=== PATIENT | female | born 1965 | race Caucasian/White ===

== ENCOUNTER 2019-06-04 11:14 | Inpatient (IN) | payer SELFPAY ==
[~2019-06-04] VITALS: Ht 170.2 cm; Wt 73.5 kg
[2019-06-04] VITALS (22 sets, daily range): BP systolic 107–158; BP diastolic 67–99
[2019-06-04 12:42] LABS: BASOPHILS # (AUTO) 0.1 (0.0-0.1); BASOPHILS % 0.5 % (0.0-1.0); EOSINOPHILS # (AUTO) 0.3 (0.0-0.4); EOSINOPHILS % 2.7 % (0.0-6.0); HEMATOCRIT 36.3 % (34.2-44.1); HEMOGLOBIN 11.8 g/dL (12.0-16.0); LYMPHOCYTES # (AUTO) 1.5 (1.0-3.2); LYMPHOCYTES % 12.7 % (18.0-39.1); MEAN CORPUSCULAR HEMOGLOBIN 26.4 pg (28-32); MEAN CORPUSCULAR HGB CONC 32.5 g/dL (31-35); MEAN CORPUSCULAR VOLUME 81.2 fL (81-99); MONOCYTES # (AUTO) 0.9 (0.2-0.8); MONOCYTES % 7.4 % (4.4-11.3); NEUTROPHILS # (AUTO) 9.2 (2.1-6.9); NEUTROPHILS % 76.3 % (38.7-80.0); PLATELET COUNT 452 x10e3/uL (140-360); RED BLOOD COUNT 4.47 x10e6/uL (3.6-5.1); RED CELL DISTRIBUTION WIDTH 16.9 % (11.7-14.4)
[2019-06-04 12:51] LABS: INR 0.99; PROTHROMBIN TIME 13.6 seconds (11.9-14.5)
[2019-06-04 12:52] LABS: PARTIAL THROMBOPLASTIN TIME 28.9 seconds (23.8-35.5)
[2019-06-04 13:00] LABS: ALANINE AMINOTRANSFERASE 67 IU/L (0-55); ALBUMIN 2.5 g/dL (3.5-5.0); ALBUMIN/GLOBULIN RATIO 0.6 (0.8-2.0); ALKALINE PHOSPHATASE 256 IU/L (40-150); ANION GAP 14.6 mmol/L (8-16); BLOOD UREA NITROGEN 10 mg/dL (7-26); BUN/CREATININE RATIO 14 (6-25); CALCIUM 9.2 mg/dL (8.4-10.2); CARBON DIOXIDE 26 mmol/L (22-29); CHLORIDE 97 mmol/L (98-107); EST GLOMERULAR FILTRATION RATE > 60 ML/MIN (60-); GLUCOSE 91 mg/dL (74-118); POTASSIUM 3.6 mmol/L (3.5-5.1); SODIUM 134 mmol/L (136-145)
[2019-06-04] MEDS ORDERED: ONDANSETRON HCL INJ 2MG/ML 2ML 2 MG/ML VIAL IV STA (13:01)
[2019-06-04] MEDS ORDERED: MORPHINE SULFATE INJ 4 MG/ML INJ 1ML IV STA (13:01)
[2019-06-04] MEDS ORDERED: HEPARIN SOD (PORCINE) 5,000 UNIT/ML VIAL IV ONE ×2 (13:15→14:30)
[2019-06-04] MEDS ORDERED: HEPARIN 25,000 UNIT 1,200 UNIT in DEXTROSE 5% 250ML 250 ML IV SCH (14:30)
[2019-06-04] MEDS ORDERED: HEPARIN 25,000 UNIT DRIP IV ONE (14:55)
[2019-06-04] MEDS: MORPHINE SULFATE INJ 4 MG/ML INJ 1ML IV PRN ×3 (15:15→22:59)
--- NOTE | 2019-06-04 15:20 | NUR ---
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 Orders in [employer] and Tele tracker. Belkis RN House supv. aware for ICU bed necessity. general laborer team updated. rolo/kassie
[2019-06-04] MEDS ORDERED: MIDAZOLAM HCL 2 MG/2 ML VIAL ONE ×3 (15:23→16:42)
[2019-06-04] MEDS ORDERED: IOPAMIDOL 300MG/ML 100 ML INFUS..BTL IV ONE ×2 (15:24→16:39)
[2019-06-04] MEDS ORDERED: HEPARIN SOD/SOD CHLORIDE 2,000 ML ONE (15:24)
[2019-06-04] MEDS ORDERED: FENTANYL CITRATE/PF 100MCG/2 ML INJ ONE ×2 (15:24→15:34)
[2019-06-04] MEDS ORDERED: LIDOCAINE HCL 2% LOCAL 20 ML VIAL ONE (15:24)
[2019-06-04] MEDS ORDERED: SODIUM CHLORIDE 0.9% 1000ML 1,000 ML ONE (15:24)
[2019-06-04] MEDS ORDERED: ALTEPLASE RECOMBINANT 8 MG in DEXTROSE 5% 250ML 250 ML IV PRN (15:30)
[2019-06-04] MEDS ORDERED: HEPARIN 25,000U/0.45% NS 250ML 0 ML IV ONE (15:34)
[2019-06-04] MEDS ORDERED: CLOPIDOGREL BISULFATE 75 MG TAB ONE (17:01)
[2019-06-04] MEDS ORDERED: ASPIRIN 325 MG TAB ONE (17:01)
--- NOTE | 2019-06-04 17:30 | NUR ---
Report provided to Jolene SNELL, review of procedural findings and medications given. Patient drowsy, easily aroused. maintains airway and room air saturations of 98-99%. No gross issues of pressure, pain, pallor or dysrhythmia. IV site patent with NS 0.9% at KVO by dial-flow to left forearm. patient hemodynamically stable with hemostasis right groin dressing CDI w/o s/s of bleeding. patient transferred to [facility] assist w/o incident. transported to ICU 193. tPA was prepared under MD order and decision made not to use by MD - cgf procedure: left popliteal thrombectomy and PTCA w/ DCB Sheath puller: Refugio RTR mynx to right fem Meds Given Intra-Procedure Sedatives Versed - 3 mg Fentanyl - 75 mcg Anticoagulants Heparin - 9000 Units Fluids Input -750 Output -dtv Contrast Isovue 300 -225ml Other Meds Plavix 600 mg Aspirin 325mg
--- NOTE | 2019-06-04 18:00 | NUR ---
Received patient from specialist employee labor relations at 1730. Patient arrived with warm and palpable pulses on L foot. R groin cath site is CDI. Patient does not appear to be in any distress at this time. Dr. Norm Bateman called to clarify orders for heprain drip on the OCT as optical laboratory mechanic told RN patient did not need heprain drip post cath. also called bc patient is complaining of L foot pain and morphine is not due for 1.5 more hours. Page went unanswered.
[2019-06-04] MEDS: RIVAROXABAN 20 MG TABLET PO SCH (21:25)
[2019-06-05] VITALS (45 sets, daily range): BP systolic 97–141; BP diastolic 54–84
--- NOTE | 2019-06-05 01:35 | Operative Report ---
DATE OF PROCEDURE: 06/04/2019 SURGEON: Hilario Bateman MD INDICATION FOR PROCEDURE: Acute limb ischemia. PREPROCEDURE ASSESSMENT: The risks, benefits, and alternatives of the treatment were explained to the patient prior to the procedure. The patient was deemed to be an appropriate candidate for moderate sedation. Informed consent was obtained and documented in the medical record. MEDICATIONS: Please see nursing notes for medications administered during the procedure. PROCEDURES PERFORMED: 1. Abdominal aortography. 2. Bilateral lower extremity angiogram. 3. Catheter placement third order. 4. Primary arterial thrombectomy with a mechanical device. 5. ADMINISTRATIVE SUPPORT CLERK of the left popliteal artery with 6.0 x 80 mm drug-coated balloon. 6. Femoral angiography. 7. Vascular closure device. 8. Moderate sedation 90 minute supervised by . PROCEDURE IN DETAILS: The patient was brought to the cardiac catheterization laboratory in a fasting state. Right groin was prepped and draped in a sterile fashion. Access to the right common femoral artery was obtained using micropuncture needle. Six-Mauritian short sheath was inserted into the right common femoral artery without any difficulty. Omni Flush catheter was advanced into the abdominal aorta and abdominal aortography was performed. [place] Advantage wire was used through the Omni Flush catheter and advanced into the left common iliac artery and subsequently into the left superficial femoral artery under fluoroscopic guidance. The Omni Flush catheter was advanced into the left common femoral artery and segmental peripheral angiography of the left lower extremity was performed using digital subtraction imaging. This revealed acute thrombosis of the left popliteal artery with very poor INEZ-1 flow distal to the thrombus with only one vessel runoff to the foot. We decided to proceed with the intervention. IV bolus and heparin were given with subsequent boluses as needed to achieve ACT near 300. Short 6-Mauritian sheath was exchanged for a long 45 cm destination sheath 6-Mauritian over the [place] Advantage wire. The lesion was crossed using a Whisper wire, which was positioned into the anterior tibial artery all the way into the dorsalis pedis artery. Primary mechanical thrombectomy was performed with three separate passes of Angiojet catheter with total aspiration of 160 mL of blood and thrombus. This resulted in significant improvement to distal flow. However, there is residual 80% stenosis noted at the left popliteal artery. Intra-arterial nitroglycerin was given to ensure that there was no spasm involved and since persistent lesion was noted, we decided to proceed with balloon angioplasty with 6.0 x 80 mm drug-coated balloon at four atmospheres for 3 minutes. This resulted in excellent angiographic result with no residual thrombus dissection or spasm. Wire and balloon were removed. Final angiogram of the left lower extremity showed excellent three-vessel runoff to the left foot with INEZ-3 flow. The destination sheath was then exchanged for a short 6-Mauritian sheath over [place] Advantage wire and angiography of the right lower extremity with runoff was performed, which demonstrated no significant stenosis or thrombosis with three-vessel runoff of the tibia. Access site was then closed with a Mynx vascular closure device. This resulted in excellent hemostasis. The patient tolerated the procedure well. There were no immediate complications. Antiplatelet therapy was administered using 600 mg of Plavix loading dose as well as aspirin. The patient was transferred to the ICU for overnight observation and care. FINDINGS: Acute thrombosis of left popliteal artery and 80% underlying lesion of the left popliteal artery, successful mechanical thrombectomy, and ADMINISTRATIVE SUPPORT CLERK of the above lesion with excellent hinduism of flow. ESTIMATED BLOOD LOSS: 170 mL. GRAFTS AND IMPLANTS: None. SPECIMEN REMOVED: None. COMPLICATIONS: None. FINAL RECOMMENDATIONS: 1. Continue Plavix 75 mg daily and Xarelto 20 mg at bedtime. 2. Continue optimal medical therapy and risk factor control including smoking cessation. 3. Follow up in clinic 2 weeks post discharge to determine the etiology of acute left popliteal thrombosis. MD LISA Cordoba/SAMIRA /[id number]
[2019-06-05] MEDS: MORPHINE SULFATE INJ 4 MG/ML INJ 1ML IV PRN ×5 (04:30→21:35)
[2019-06-05 05:22] LABS: BASOPHILS % 0.4 % (0.0-1.0); EOSINOPHILS # (AUTO) 0.5 (0.0-0.4); EOSINOPHILS % 4.3 % (0.0-6.0); HEMATOCRIT 30.6 % (34.2-44.1); HEMOGLOBIN 9.5 g/dL (12.0-16.0); LYMPHOCYTES # (AUTO) 1.8 (1.0-3.2); LYMPHOCYTES % 16.5 % (18.0-39.1); MEAN CORPUSCULAR HEMOGLOBIN 25.7 pg (28-32); MEAN CORPUSCULAR VOLUME 82.9 fL (81-99); MONOCYTES # (AUTO) 0.8 (0.2-0.8); MONOCYTES % 7.7 % (4.4-11.3); NEUTROPHILS # (AUTO) 7.6 (2.1-6.9); NEUTROPHILS % 70.6 % (38.7-80.0); PLATELET COUNT 384 x10e3/uL (140-360); RED BLOOD COUNT 3.69 x10e6/uL (3.6-5.1); RED CELL DISTRIBUTION WIDTH 17.1 % (11.7-14.4)
[2019-06-05 05:35] LABS: INR 2.08; PROTHROMBIN TIME 24.1 seconds (11.9-14.5)
[2019-06-05 05:36] LABS: PARTIAL THROMBOPLASTIN TIME 45.6 seconds (23.8-35.5)
[2019-06-05 05:53] LABS: ANION GAP 13.2 mmol/L (8-16); BLOOD UREA NITROGEN 10 mg/dL (7-26); BUN/CREATININE RATIO 17 (6-25); CALCIUM 8.8 mg/dL (8.4-10.2); CARBON DIOXIDE 24 mmol/L (22-29); CHLORIDE 101 mmol/L (98-107); CREATININE, SERUM 0.59 mg/dL (0.57-1.11); EST GLOMERULAR FILTRATION RATE > 60 ML/MIN (60-); GLUCOSE 85 mg/dL (74-118); POTASSIUM 4.2 mmol/L (3.5-5.1); SODIUM 134 mmol/L (136-145)
[2019-06-05] MEDS: ONDANSETRON HCL INJ 2MG/ML 2ML 2 MG/ML VIAL IV PRN ×4 (07:59→21:35)
[2019-06-05] MEDS: CLOPIDOGREL BISULFATE 75 MG TAB PO SCH (08:50)
--- NOTE | 2019-06-05 12:41 | History and Physical ---
CHIEF COMPLAINT: Left leg acute ischemia with arterial clot. 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 The patient has workup done immediately and found to have significant left popliteal arterial stenosis. The patient underwent angiogram. The patient underwent abdominal aortography with bilateral lower extremity angiogram, primary arterial thrombectomy with a mechanical device and a MOVIE ACTOR of the left popliteal artery with 6.0 x 80 mm drug-coated balloon, femoral angiography, vascular closure device, and moderate sedation at the time. The patient is stable. She had a respond pulses to the left lower extremity. Currently, the patient is still with some bluish discoloration of her toe. The left foot shown that she has some bluish of the 5th toe and also to the 2nd toe and the 3rd toe as well. There is ptosis noticed on palpation and monitoring by registered nurse at bedside. The patient is currently on Xarelto and Plavix. PAST MEDICAL HISTORY: Smoker, but no previous vascular compromise. She smoked for over 30 years, half to one-pack per day. No significant recreational drug use or alcohol. FAMILY HISTORY: Extensively with dyslipidemia, coronary artery disease, hypertension, and diabetes. PHYSICAL EXAMINATION: VITAL SIGNS: Temperature is 98, blood pressure 110/74, pulse rate 73, and respirations 18. GENERAL: The patient is not in acute distress. She is awake. HEENT: Normocephalic and atraumatic. Pupils reactive. Anicteric. NECK: Supple grossly. PULMONARY: Clear. CARDIOVASCULAR: Regular rate and rhythm. ABDOMEN: Soft and unremarkable. EXTREMITIES: There are pulses of the left lower extremity. The right lower extremity and right foot completely normal. Left foot as mentioned above. There is bluish discoloration worse on the 5th toe and the 2nd toe. There is some bluish coloration of the 3rd toe and 4th toe as well. There were pulses. NEUROLOGIC: No focal deficit. LABORATORY DATA: Sodium is 134, potassium 4.2, chloride 101, bicarb 24, BUN 10, creatinine 0.6, and glucose 85. WBC is 11, hemoglobin 9.5, hematocrit 30.6, and platelets is 384. IMPRESSION: Acute arterial thrombus emboli, etiology unclear. The patient is status post angiogram with intervention. Please review my note above and operative note by Dr. Hilario Bateman. PLAN: Continue with recommendation Xarelto and Plavix. We will consult Dr. Lior Beyer for treatment. Continue with monitoring of the left foot. Continue with current management. Pain control. No smoking. Nicotine patch if needed. MD LILIANA Culver/SAMIRA /[id number]
--- NOTE | 2019-06-05 16:40 | NUR ---
KRISTY GAVE SELF PAY PACKET FOR PT TO FOLLOW UP IN [facility].
--- NOTE | 2019-06-05 16:51 | NUR ---
Dr. Laboy rounded on patient and ordered consult for Dr. Beyer. RN called Dr. Beyer's office to inform them of new consult. Dr. Norm Bateman notified of patients pain to left toes and foot. updated on continued mottled discoloration to bottom of second and third toe as well as the fifth toe. Pulse to L foot are strong and palpable. MD ordered narco prn and an arterial US of the L leg. Will continue to monitor. Addendum: 06/05/19 at 1900 by Jolene Armstrong RN L foot pulses checked Q2. Pules strong every two hours, mottled discolration noted to L pinkie toe and 2nd and third toe at the bottom of foot. Dr. Norm Bateman aware.
[2019-06-05] MEDS: HYDROCODONE/APAP 5MG-325MG TAB PO PRN (18:36)
[2019-06-05] MEDS: RIVAROXABAN 20 MG TABLET PO SCH (20:45)
[2019-06-06] VITALS (15 sets, daily range): BP systolic 99–127; BP diastolic 64–78
--- NOTE | 2019-06-06 01:40 | Consultation ---
DATE OF CONSULTATION: 06/05/2019 Cardiology Consult Note REASON FOR CONSULT: Left toe gangrene. CHIEF COMPLAINT: Left foot pain. HISTORY OF PRESENT ILLNESS: The patient is a 53-year-old female with history of smoking, hypertension, hyperlipidemia, who presented to the ER after several hours of pain in her 4th and 5th toes and discoloration. In the ER, was found to have abnormal arterial Dopplers with possible thrombus in the left popliteal artery and was taken urgently to the cardiac catheterization laboratory yesterday and was noted to have a large thrombus with acute occlusion of the left popliteal artery, underwent thrombectomy and CIRCUIT BREAKER ASSEMBLER of the left popliteal with excellent result and holiness of good flow. Today, she feels better. However, her toes are still very painful and still remain discolored. She also reports some pain in the back of her calf without any swelling. No chest pain. No history of palpitation. No syncope. No history of heart failure symptoms. REVIEW OF SYSTEMS: As per HPI, otherwise negative. PAST MEDICAL HISTORY: 1. Hypertension. 2. Hyperlipidemia. SOCIAL HISTORY: The patient is a long-time smoker. Does not drink or abuse drugs. 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 FAMILY HISTORY: Noncontributory. OUTPATIENT MEDICATIONS: Reviewed. ALLERGIES: NO KNOWN DRUG ALLERGIES. OBJECTIVE: VITAL SIGNS: Temperature afebrile, pulse 87, respiratory rate 17, blood pressure 113/74, saturating 95% on room air. GENERAL: Middle-aged female, in no acute distress. CARDIOVASCULAR: Regular rate and rhythm. No murmurs, rubs, or gallops. LUNGS: Clear to auscultation bilaterally. ABDOMEN: Soft, nontender, not distended. NEURO AND PSYCH: Alert and oriented to person, place, and time. Normal affect. EXTREMITIES: 2+ pulses to the left dorsalis pedis artery. The left 4th and 5th toes are dark red and discolored, tender to palpation with good capillary refill. INPATIENT MEDICATIONS: Reviewed. LABORATORY DATA: Reviewed. TELEMETRY DATA: Reviewed. Shows normal sinus rhythm. ASSESSMENT AND PLAN: 1. Acute arterial thrombosis, left popliteal artery, status post thrombectomy and tPA. 2. Left lower extremity toe gangrene. 3. Hypertension. 4. Hyperlipidemia. PLAN: She has been revascularized. We will continue to monitor. Only time will tell whether her toe is recover or ischemic tissue will need to be debrided in the future. Continue to monitor. Pain control by primary team. Repeat Doppler did not show any residual thrombus with excellent three-vessel flow into the left foot. Ongoing hypercoagulable workup per primary team. We will get an echocardiogram to assess for any possible source of intracardiac thrombus. We will need outpatient monitoring EKG to rule out atrial fibrillation as a source of her arterial occlusion in the absence of other causes. Thank you for this consult. We will continue to follow. MD LISA Cordoba/MODL /[id number]
[2019-06-06] MEDS: HYDROCODONE/APAP 5MG-325MG TAB PO PRN ×3 (01:55→14:01)
[2019-06-06] MEDS: MORPHINE SULFATE INJ 4 MG/ML INJ 1ML IV PRN ×4 (05:35→21:00)
[2019-06-06] MEDS: CLOPIDOGREL BISULFATE 75 MG TAB PO SCH (08:12)
[2019-06-06] MEDS: ONDANSETRON HCL INJ 2MG/ML 2ML 2 MG/ML VIAL IV PRN ×3 (09:40→21:00)
--- NOTE | 2019-06-06 18:04 | NUR ---
Bounding pulses on L foot, purple discoloration to L side of foot and pinkie toe. Patient ambulated in hallway's twice using walker with RN. Dr. Laboy gave orders to transfer to floor. Will continue to monitor pt.
--- NOTE | 2019-06-06 19:35 | NUR ---
Received patient from day nurse, patient is stable, patient denies any pain at this time, safety and fall precautions maintained : bed in lowest position and locked, needed items beside bed and call rene placed close to patient, patient has yellow socks, patient is currently stable, will continue to monitor.
[2019-06-06] MEDS: RIVAROXABAN 20 MG TABLET PO SCH (20:17)
--- NOTE | 2019-06-06 20:43 | Progress Note ---
DATE: 06/06/2019 Cardiology Progress Note SUBJECTIVE: No major events overnight. Some left 5th toe pain. OBJECTIVE: VITAL SIGNS: Temperature afebrile, pulse 78, respiratory rate 16, blood pressure 112/72, and saturating 95% on room air. GENERAL: Middle-aged female, in no acute distress. CARDIOVASCULAR: Regular rate and rhythm. No murmurs, rubs, or gallops. LUNGS: Clear to auscultation bilaterally. ABDOMEN: Soft, nontender, and nondistended. NEURO AND PSYCH: Alert and oriented to person, place, and time. Normal affect. EXTREMITIES: 2+ pulses, bilateral lower extremities, warm, well perfused. Left 5th toe and surrounding tissue appears purple and mottled still despite evangelical of blood flow, may be permanent gangrene setting in. INPATIENT MEDICATIONS: Reviewed. LABORATORY DATA: Reviewed. IMAGING DATA: Reviewed. ASSESSMENT AND PLAN: 1. Acute arterial thrombosis of the popliteal artery, status post thrombectomy and tPA. 2. Left lower extremity toe gangrene. 3. Hypertension. 4. Hyperlipidemia. PLAN: Continue Plavix and Xarelto. Hypercoagulable workup is ongoing for Hematology. We will need to switch to Coumadin if the patient is found to be positive for antiphospholipid antibody. The patient is okay to be discharged from Cardiology standpoint. She will need followup with Podiatry to monitor her toes in the left foot for gangrene. MD LISA Cordoba/SAMIRA /[id number]
[2019-06-07] VITALS (8 sets, daily range): BP systolic 106–125; BP diastolic 63–78
--- NOTE | 2019-06-07 | NUR ---
patient is stable.
[2019-06-07] MEDS: MORPHINE SULFATE INJ 4 MG/ML INJ 1ML IV PRN ×3 (05:32→19:47)
[2019-06-07] MEDS: ONDANSETRON HCL INJ 2MG/ML 2ML 2 MG/ML VIAL IV PRN ×2 (05:32→19:53)
--- NOTE | 2019-06-07 07:16 | NUR ---
PATIENT ENDORSED TO NEXT SHIFT FOR CONTINUITY OF CARE.
[2019-06-07] MEDS: HYDROCODONE/APAP 5MG-325MG TAB PO PRN ×4 (08:17→22:51)
[2019-06-07] MEDS: CLOPIDOGREL BISULFATE 75 MG TAB PO SCH (08:17)
--- NOTE | 2019-06-07 12:41 | Consultation ---
DATE OF CONSULTATION: 06/05/[address] Laboy. 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 The patient presented to the ER with pain in the left 4th and 5th toes and discoloration. The patient subsequently had an arterial Doppler, which showed possible thrombus in the left popliteal artery. Subsequently, the patient had consultation with Dr. Hilario Bateman, a supervisor paint roller covers. The patient had catheterization. There was a large thrombus with acute occlusion of left popliteal artery. The patient underwent thrombectomy and COMMISSARY HELPER of left popliteal with excellent result in spiritism of good flow as per the notes of Dr. Hilario Bateman. Subsequently, the patient was started on Xarelto and Plavix, subsequently referred to me. HISTORY OF PAST ILLNESSES: History of hypertension and history of hyperlipidemia. 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 FAMILY HISTORY: Noncontributory. ALLERGIES: REPORTED NONE. MEDICATIONS: At this time: 1. Xarelto 20 mg a day. 2. Ondansetron. 3. Morphine. 4. Hydrocodone. 5. Plavix. 6. Alteplase p.r.n. REVIEW OF SYSTEMS: HEENT: Normal. CARDIAC: History of hypertension and hyperlipidemia. RESPIRATORY: Normal. GI: Normal. : Normal. MUSCULOSKELETAL: Left popliteal artery thrombosis spontaneous. NEUROENDOCRINE: Essentially normal. PHYSICAL EXAMINATION: GENERAL: A rather thin built female, distressed with some pain. NECK: No palpable adenopathy. HEART: Within normal limits. LUNGS: Clear. BREASTS: Deferred at request. ABDOMEN: Obese. RECTAL: Deferred. VAGINAL: Deferred. CENTRAL NERVOUS SYSTEM: Essentially normal. EXTREMITIES: Reveals the patient to have left 2nd, 3rd, 4th, and 5th toe bluish in discoloration. I could not feel the posterior tibial, however, the dorsalis pedis is bounding. LABORATORY DATA: Lab investigations of interest show a hemoglobin of 9.5, hematocrit 30.6 with normal indices except for a slightly low MCHC of 31, RDW slightly high 17.1, white count of 10,700, and platelets of 384,000. The platelets on 06/04 were high at 452. Coagulation profile; the INR on 06/05, 2.08 and PTT 45.6. Chemistry; sodium of 134, potassium 3.6, chloride is 97, CO2 26, BUN 10, creatinine 0.7, glucose 91, and calcium 9.2. SGOT high at 79, SGPT high at 57, alkaline phosphatase high at 256, total protein 6.8, albumin 2.5, and globulin is 4.3. IMAGING DATA: Imaging consists of the abdominal arteriogram described by Dr. Hilario Bateman. IMPRESSION: 1. Left popliteal arterial thrombosis. 2. Arterial thrombectomy. 3. Bluish left 2nd, 3rd, 4th, and 5th toes. 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 5. Anemia of chronic disease (9.5). 6. Thrombocythemia (452). 7. History of excessive smoking. 8. High LFT. PLAN, COMMENTS, AND SUGGESTIONS: The patient is already on Xarelto and Plavix. I suggested the patient to have thrombophilia profile. I will follow with Cardiology, suggested to stop smoking. Ultrasound of abdomen, as LFTs are high. Hepatitis profile If the patient tends to show by thrombophilia profile that she has either anticardiolipin antibodies and/or lupus anticoagulant, suggested the patient to be switched over to Coumadin for lifetime. The patient should be referred to [facility], as she does not have any insurance and she will have to be followed lifetime by elastic attacher chainstitch. Thank you very much for allowing me to participate in the management of this patient. I will confine myself to Hematology. However, my role is very limited at this time, as the patient predominantly is being taken care of and put on anticoagulants by the supervisor paint roller covers. Lior Beyer MD MAQ/MODL /[id number] cc: MD Hilario Culver MD
--- NOTE | 2019-06-07 12:51 | Progress Note ---
DATE: 06/07/2019 Cardiology Progress Note SUBJECTIVE: The patient denies chest pain or shortness of breath. Her main complaint is of pain in her toes. OBJECTIVE: VITAL SIGNS: Temperature 98.2 degrees, pulse 84, respiratory rate 16, blood pressure 109/78, and oxygen saturation 98% on room air. GENERAL: Awake, alert, in no acute distress. LUNGS: Clear to auscultation bilaterally. No wheezes or crackles. CARDIOVASCULAR: Normal rate, regular rhythm. No murmur. Normal S1 and S2. ABDOMEN: Soft and nontender. EXTREMITIES: No edema. Left fifth toe with dusky discoloration as well as the tip of the left second digit. CARDIAC MEDICATIONS: 1. Plavix 75 mg p.o. daily. 2. p.o. at bedtime. LABORATORY DATA: None today. IMPRESSION: 1. Acute arterial thrombosis of the popliteal artery, status post thrombectomy and tPA. 2. Left lower extremity toe gangrene. 3. Hypertension. 4. Hyperlipidemia. RECOMMENDATIONS: Continue Plavix and Xarelto. Hypercoagulable workup per Hematology. If she is found to be positive for antiphospholipid antibody, recommend switch to Coumadin. Otherwise, she may be discharged from a cardiac standpoint. She will need followup with Podiatry to monitor the left toe gangrene. Thank you for this consult. We will continue to follow. Alecia Mcbride MD ABS/SAMIRA /[id number]
[2019-06-07] MEDS ORDERED: BISACODYL 10 MG SUPP PR PRN (15:15)
[2019-06-07] MEDS ORDERED: MAGNESIUM HYDROXIDE 30 ML UDC PO PRN (15:15)
--- NOTE | 2019-06-07 16:21 | Diagnostic Imaging Report ---
EXAM: Right upper quadrant abdominal ultrasound INDICATION: Elevated liver enzymes. COMPARISON: None. TECHNIQUE: Transverse and longitudinal images of the right upper quadrant abdomen were obtained FINDINGS: Liver: Size: 20.5 cm in the right midclavicular line, enlarged Appearance: Increased echogenicity, nodular contour Mass: Multiple masses in the right and left liver of varying echogenicity. The most prominent masses measure 2.9 x 2.5 x 2.8 cm and 2.3 x 2.2 x 2.7 cm and the left liver and 3.6 x 2.2 x 3.1 cm in the right liver. Gallbladder: Small amount of sludge in the gallbladder. No gallbladder distension, pericholecystic fluid, wall thickening, stone, or reported sonographic Lester's sign. Gallbladder wall measures 1 mm. Bile Ducts: Intrahepatic Ducts: No dilatation Extrahepatic Ducts: Common bile duct measures 5 mm Pancreas: Visualized portions of the pancreatic head, neck and proximal body are normal. Kidney: The right kidney measures 12.2 cm without evidence of hydronephrosis or stone. Vessels: Aorta: Visualized portions are normal Inferior Vena Cava: Visualized portions are normal Main Portal Vein: 0.8 cm, normal size with hepatopetal flow. Free Fluid: No ascites or pleural effusion IMPRESSION: Hepatomegaly, hepatic steatosis, and cirrhotic liver surface contour with numerous masses in the right and left liver of varying echogenicity measuring up to 2.9 x 2 0.5 to 2.8 cm on the left and 3.6 x 2.2 x 3.17 m on the right. In the setting of cirrhosis, these are concerning for multifocal hepatocellular carcinoma or less likely metastases. Small amount of sludge in the gallbladder. No central or evidence of cholelithiasis or cholecystitis. RECOMMENDATIONS: Further evaluation with liver mass protocol CT or MRI. Signed by: Julio Esquivel MD on 06/07/2019 4:17 PM
[2019-06-07] MEDS: DOCUSATE SODIUM 100 MG CAP PO SCH (16:35)
[2019-06-07] MEDS: RIVAROXABAN 20 MG TABLET PO SCH (21:03)
--- NOTE | 2019-06-07 22:36 | NUR ---
Report given to Karen SNELL. Plan of care discussed, pt transferred via wheelchair w/ all belongings. No complaints at this time.
[2019-06-08] VITALS: BP 116/68
[2019-06-08 04:00] VITALS: BP 115/71
--- NOTE | 2019-06-08 07:00 | NUR ---
RECEIVED PATIENT RESTING IN BED NO S/S OF DISTRESS. BED LOW, WHEELS LOCKED, SIDE RAILS X2. CALL LIGHT IN REACH WILL CONTINUE TO MONITOR PATIENT.
[2019-06-08] MEDS: CLOPIDOGREL BISULFATE 75 MG TAB PO SCH (07:57)
[2019-06-08] MEDS: DOCUSATE SODIUM 100 MG CAP PO SCH (07:57)
[2019-06-08 08:19] VITALS: BP 130/73
[2019-06-08 08:59] VITALS: BP 130/73
[2019-06-08] MEDS ORDERED: CLOPIDOGREL75 MG PO (09:29)
[2019-06-08] MEDS ORDERED: DOCUSATE SODIU100 MG PO (09:33)
[2019-06-08] MEDS ORDERED: TYLENOL WITH C1 EACH PO (09:33)
[2019-06-08] MEDS ORDERED: PLAVIX75 MG PO (09:33)
[2019-06-08] MEDS ORDERED: ELIQUIS PO (09:34)
--- NOTE | 2019-06-08 09:45 | NUR ---
REMOVED PATIENTS IV. CATHETER TIP INTACT AND PRESSURE DRESSING APPLIED.
--- NOTE | 2019-06-08 09:50 | NUR ---
PATIENT DISCHARGED FROM FACILITY PATIENT GATHERED ALL PERSONAL BELONGINGS, DISCHARGE INSTRUCTION, AND FOLLOW UP INFORMATION. LEFT UNIT IN WHEELCHAIR AND WENT HOME VIA PRIVATE AUTO. NO SIGNS OF DISTRESS WHEN LEAVING FACILITY.
--- NOTE | 2019-06-09 00:28 | Consultation ---
DATE OF CONSULTATION: 06/08/2019 ADDENDUM: Mellisa Sullivan is a 53-year-old white female, who was seen by me for arterial emboli of the left lower extremity. Because of the high liver functions, SGOT being 79, SGPT 67, and alkaline phosphatase being 256 with a low albumin of 2.5. I had done an ultrasound of the liver and this was reported to have hepatomegaly, hepatic steatosis, cirrhotic liver with multiple lesions, 2.9 x 2.05 to 3.6 x 2.2 x 3.17. There was also small amount of sludge in the gallbladder. The patient, however, has been discharged. This finding is extremely important. I have tried to call her at [phone], the phone number listed on her admission sheet. She needs to have markers as CEA, alpha-fetoprotein. Since a smoker, she also needs to have a CT of the chest. I will write her a letter, so that she would have this done as soon as possible since she could have an underlying malignancy as the cause of the thromboembolic phenomenon that she had. Thank you very much for allowing me to participate in management of this patient. Lior Beyer MD MAQ/MODL /[id number] cc: MD Hilario Culver MD
--- NOTE | 2019-06-09 01:23 | Progress Note ---
DATE: 06/08/2019 Cardiology Progress Note SUBJECTIVE: The patient denies chest pain or shortness of breath. She reports her toes are improving. OBJECTIVE: VITAL SIGNS: Temperature 96.8 degrees, pulse 72, respiratory rate 16, blood pressure 130/73, and oxygen saturation 96% on room air. GENERAL: Awake, alert, in no acute distress. LUNGS: Clear to auscultation bilaterally. No wheezes or crackles. CARDIOVASCULAR: Normal rate. Regular rhythm. No murmur. Normal S1, S2. ABDOMEN: Soft, nontender. EXTREMITIES: No edema. Left 5th toe discoloration as well as the tip of the left 2nd and 3rd digits, slightly improved from yesterday. CARDIAC MEDICATIONS: Plavix 75 mg p.o. daily, Xarelto 20 mg p.o. at bedtime. IMPRESSION: 1. Acute arterial thrombosis of the popliteal artery, status post thrombectomy and tPA. 2. Left great toe gangrene. 3. Hypertension. 4. Hyperlipidemia. RECOMMENDATIONS: Continue Plavix and Xarelto. Hypercoagulable workup per Hematology. If she is found to be positive for antiphospholipid antibody, recommend switch to Coumadin. Otherwise, she may be discharged from a cardiac standpoint. She will need to follow up with Podiatry to monitor the left toe gangrene. Thank you for this consult. We will continue to follow. Alecia Mcbride MD ABS/MODL /[id number]
--- NOTE | 2019-06-09 06:59 | Discharge Summary ---
CONSULTANTS: 1. Dr. Hilario Bateman. 2. Dr. Lior Beyer. FINAL DIAGNOSES: 1. Acute left foot ischemia of the 2nd and 5th toe secondary to arterial thrombus. 2. Status post arteriogram with intervention on June 04, [address] Hilario Bateman. Abdominal aortography, bilateral lower extremity angiogram, primary arterial thrombectomy with a mechanical device, FISH DRIER of the left popliteal artery with 6.0 x 80 mm drug-coated balloon. SUMMARY: The patient is a heavy smoker, came in with acute left foot ischemia. The patient underwent angiography immediately. The patient was placed on heparin drip. The patient has intervention as mentioned above. So far, the patient is doing much better. The ischemia has improved. There is some discoloration of the left 5th toe and 2nd toe area. The pain has significantly subsided. The patient is recommended to continue with anticoagulant therapy and because of the patient's insurance is pending, the patient will take Eliquis 5 mg twice a day. A discount card is for a 30-day supply. The patient will continue with Plavix as well. The patient is advised to stop smoking immediately. The patient also has other workup done including as slight elevation of liver enzymes. Her homocystine level is pending. Serologies shows the hepatitis panel is also pending as well. The patient's immunologic workup is also pending. The patient will have a lot of followup. She discussed with the patient at length. The patient expressed understanding that she needs to follow up immediately for continue to monitor her anticoagulant therapy in her left foot. 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 The patient may return to the emergency room immediately if worsening condition. The patient will be discharged home today with Plavix 75 mg daily, Tylenol No.3 p.r.n., and Eliquis 5 mg twice a day. IMAGING TESTS: Liver enzyme, hepatomegaly, hepatic steatosis and cirrhotic liver with numerous masses in the right and left liver, a varying echogenicity measuring up to 2.9 x 2.5 x 2.8 cm on the left and 3.6 x 2.2 x 3.77 on the right in the setting of liver cirrhosis. The patient is in the setting of liver cirrhosis. The ultrasound is concerning for multifocal hepatocellular carcinoma or less likely metastasis. A small amount of sludge in the gallbladder as well. There is no central evidence of cholelithiasis or cholecystitis. Recommendation for the patient to follow up with liver mass protocol CT or MRI. At this time, the patient is on anticoagulant therapy, will be very high risk for any subsequent workup including biopsy. The patient will need to have this done as an outpatient once the coagulation and the foot is much improved. I discussed with the patient at length. Her INR is 2.08, PTT is 45.6, and PTT is 24.1. I am printing out the liver ultrasound for the patient to take with her and the patient need to follow up closely for any management. Again discussed with the patient at length the importance of followup. She will need all this workup as an outpatient with her condition. She will continue to monitor her left foot closely. Continue with Eliquis and Plavix. Discussed with the patient at length on close followup as instructed. MD LILIANA Culver/SAMIRA /[id number]
== END 2019-06-08 09:50 | disposition home or self-care (01) | DRG 271 ==
LOC: ER 11:14 → ERHOLD 13:47 → ICU 17:44 → MED/SURG 06-07 22:33
PROVIDERS: ADMIT Internal Medicine; ATTEND Internal Medicine
PROC: 04CN3ZZ Extirpation of Matter from Left Popliteal Artery, Percutaneous Approach (ICD-10-PCS; principal; 2019-06-04)
PROC: 047N3Z1 Dilation of Left Popliteal Artery using Drug-Coated Balloon, Percutaneous Approach (ICD-10-PCS; 2019-06-04)
PROC: B41D1ZZ Fluoroscopy of Aorta and Bilateral Lower Extremity Arteries using Low Osmolar Contrast (ICD-10-PCS; 2019-06-04)
DX: I74.3 Embolism and thrombosis of arteries of the lower extremities (principal); I96 Gangrene, not elsewhere classified; F17.210 Nicotine dependence, cigarettes, uncomplicated; R16.0 Hepatomegaly, not elsewhere classified; K76.0 Fatty (change of) liver, not elsewhere classified; K74.60 Unspecified cirrhosis of liver; K82.9 Disease of gallbladder, unspecified; D63.8 Anemia in other chronic diseases classified elsewhere; D69.6 Thrombocytopenia, unspecified
CPT/HCPCS: 36247; 36415; 37224; 75625; 75710; 76705; 80048; 80053; 81241; 81400; 85025; 85303; 85306; 85610; 85730; 86039; 86431; 93306; 93926; 99284; C1757; C1769; C1887; J1644; J2001; J2250; J2270; J2405; J2997; J3010; J7030; Q9967

== ENCOUNTER 2019-07-01 07:59 | Inpatient (IN) | payer SELFPAY ==
[~2019-07-01] VITALS: Ht 170.2 cm; Wt 80.5 kg
[2019-07-01] VITALS (9 sets, daily range): BP systolic 135–164; BP diastolic 67–109
[~2019-07-01 07:59] MED LIST: CLOPIDOGREL75 MG PO; COUMADIN3 MG PO; DOCUSATE SODIU100 MG PO; ELIQUIS PO; PLAVIX75 MG PO; TYLENOL WITH C1 EACH PO
[2019-07-01] MEDS ORDERED: ONDANSETRON HCL INJ 2MG/ML 2ML 2 MG/ML VIAL IV STA (08:28)
[2019-07-01] MEDS ORDERED: SODIUM CHLORIDE 0.9% 1000ML 1,000 ML IV STA (08:28)
[2019-07-01] MEDS ORDERED: MORPHINE SULFATE INJ 4 MG/ML INJ 1ML IV STA (08:40)
[2019-07-01] MEDS ORDERED: HEPARIN 25,000 UNIT 1,500 UNIT in DEXTROSE 5% 250ML 250 ML IV SCH (09:00)
--- NOTE | 2019-07-01 09:20 | NUR ---
H&P cc: left foot pain/color changes HPI: 53yoF, no PCP, onc , found to have left popliteal artery occlusive disease and ischemic foot, had thrombectomy and started on coumadin and plavix, pt also had metastatic liver disease presumed primary lung cancer with hx of 40pk years cigs, now representing with acute left foot pain and color changes. Last inr 3.17 on Friday. PMH: Ischemic left foot s/p thrombectomy, PAD, metastatic liver disease, Presumed primary lung cancer, Nicotine dependence in remission, HTN, Liver cirrhosis, AOCD PShx: thrombectomy, left foot tib/fib fx s/p repair s/p removal of hardware, right laryngocele resection 2013, Allergies; see emr Fh/Sh; ; no etoh; quit cigs 06/2019. 40pk yr hx; CAD and HLD and PAD in family Meds; see MAR ROS: no f/c/s/N/V/D/ARRIAGA/vision changes/cp/sob/back pian v/s; revd PE tired appearing anicteric ns1s2 mod bs soft nt nd right leg/foot normal; 2+ DP; left foot pale, cool, unable to palpate DP and PT; 5th toe with gangrene at tip; tender toe; skin dry flat affect labs/meds; revd A/P: 53yoF Ischemic left foot- heparin gtt; asa; cardio eval PAD- asa/AC; check lipids Nicotine dependence in remission Metastatic disease of liver- f/u outpt with Presumed lung cancer- bx pending outpt set up Hypokalemia- recheck Moderate anemia- check panel HTN- treat at needed Prop: ppi on AC dispo: Gael Logan MD, PhD.
[2019-07-01 09:21] LABS: BASOPHILS # (AUTO) 0.1 (0.0-0.1); BASOPHILS % 0.4 % (0.0-1.0); EOSINOPHILS # (AUTO) 0.6 (0.0-0.4); HEMOGLOBIN 9.4 g/dL (12.0-16.0); LYMPHOCYTES # (AUTO) 1.8 (1.0-3.2); LYMPHOCYTES % 12.9 % (18.0-39.1); MEAN CORPUSCULAR HEMOGLOBIN 25.8 pg (28-32); MEAN CORPUSCULAR HGB CONC 31.3 g/dL (31-35); MEAN CORPUSCULAR VOLUME 82.4 fL (81-99); MONOCYTES # (AUTO) 0.9 (0.2-0.8); MONOCYTES % 6.3 % (4.4-11.3); NEUTROPHILS # (AUTO) 10.4 (2.1-6.9); NEUTROPHILS % 75.8 % (38.7-80.0); PLATELET COUNT 661 x10e3/uL (140-360); RED BLOOD COUNT 3.64 x10e6/uL (3.6-5.1); RED CELL DISTRIBUTION WIDTH 17.7 % (11.7-14.4)
[2019-07-01] MEDS ORDERED: PANTOPRAZOLE 40 MG 10ML VIAL IV STA (09:23)
--- NOTE | 2019-07-01 09:23 | Diagnostic Imaging Report ---
EXAMINATION: CHEST SINGLE (PORTABLE) INDICATION: Pulseless foot COMPARISON: None FINDINGS: LINES/TUBES:EKG leads overlie the chest. LUNGS:The lungs are well-inflated. No focal consolidation or pulmonary edema. PLEURA:No pleural effusion or pneumothorax. MEDIASTINUM:The cardiomediastinal silhouette appears normal in size and shape. BONES/SOFT TISSUES:No acute osseous injury. ABDOMEN:No free air under the diaphragm. IMPRESSION: No focal pneumonia or pulmonary edema. Signed by: Julio Esquivel MD on 07/01/2019 9:19 AM
[2019-07-01] MEDS ORDERED: HEPARIN SOD (PORCINE) 1000 UNIT/ML SDV IV ONE ×2 (09:25→10:00)
[2019-07-01 09:31] LABS: INR 1.65; PROTHROMBIN TIME 20.1 seconds (11.9-14.5)
[2019-07-01 09:43] LABS: ALANINE AMINOTRANSFERASE 44 IU/L (0-55); ALBUMIN 2.7 g/dL (3.5-5.0); ALBUMIN/GLOBULIN RATIO 0.6 (0.8-2.0); ALKALINE PHOSPHATASE 424 IU/L (40-150); ANION GAP 16.1 mmol/L (8-16); BLOOD UREA NITROGEN 6 mg/dL (7-26); BUN/CREATININE RATIO 10 (6-25); CALCIUM 9.4 mg/dL (8.4-10.2); CARBON DIOXIDE 25 mmol/L (22-29); CHLORIDE 93 mmol/L (98-107); CREATINE KINASE 85 IU/L (29-168); EST GLOMERULAR FILTRATION RATE > 60 ML/MIN (60-); GLUCOSE 98 mg/dL (74-118); POTASSIUM 3.1 mmol/L (3.5-5.1); SODIUM 131 mmol/L (136-145)
[2019-07-01] MEDS ORDERED: POTASSIUM CHLORIDE 20 MEQ TAB CR PO STA (10:28)
[2019-07-01] MEDS ORDERED: KCL 20MEQ/.9 SOD CHL 1,000 ML IV ONE (10:30)
[2019-07-01] MEDS ORDERED: HYDROMORPHONE 1MG/1ML INJ IV STA (12:04)
--- NOTE | 2019-07-01 12:52 | NUR ---
pt arrived on unit from ER; in stable condition.
--- NOTE | 2019-07-01 14:12 | NUR ---
lab called, stating pt's PTT was 118; heparin was initially going at 13ml /hr per protocol. held for 30 minutes then restarted at 11.5ml /hr. will continue to assess Addendum: 07/01/19 at 1611 by Marguerite Combs RN repeat PTT ordered for 2009
[2019-07-01] MEDS: MORPHINE SULFATE INJ 4 MG/ML INJ 1ML IV PRN ×2 (15:19→18:26)
[2019-07-01] MEDS: ONDANSETRON HCL INJ 2MG/ML 2ML 2 MG/ML VIAL IV PRN (15:19)
[2019-07-01] MEDS ORDERED: SENNA LAX8.6 MG PO (15:45)
--- NOTE | 2019-07-01 16:11 | NUR ---
pt [facility] for [facility] and thrombolysis procedure with DESIZING MACHINE OPERATOR at bedside; pt awake, alert, no signs of distress, left in stable condition
[2019-07-01] MEDS ORDERED: MIDAZOLAM HCL 2 MG/2 ML VIAL ONE (16:20)
[2019-07-01] MEDS ORDERED: LIDOCAINE HCL 2% LOCAL 20 ML VIAL ONE (16:20)
[2019-07-01] MEDS ORDERED: FENTANYL CITRATE/PF 100MCG/2 ML INJ ONE (16:20)
[2019-07-01] MEDS ORDERED: IOPAMIDOL 300MG/ML 100 ML INFUS..BTL IV ONE (16:21)
[2019-07-01] MEDS ORDERED: HEPARIN SOD/SOD CHLORIDE 2,000 ML ONE (16:21)
[2019-07-01] MEDS ORDERED: SODIUM CHLORIDE 0.9% 1000ML 1,000 ML ONE (16:21)
[2019-07-01] MEDS: DOCUSATE SODIUM 100 MG CAP PO SCH (16:41)
[2019-07-01] MEDS ORDERED: ALTEPLASE RECOMBINANT 2 MG/2 ML VIAL ONE (17:15)
[2019-07-01] MEDS ORDERED: ALTEPLASE RECOMBINANT 8 MG in DEXTROSE 5% 250ML 250 ML IV PRN (17:15)
[2019-07-01] MEDS ORDERED: METHYLPREDNISOLONE SOD SUCC 125 MG/2ML VIAL ONE (17:17)
[2019-07-01] MEDS ORDERED: DIPHENHYDRAMINE HCL INJ 50 MG/ML VIAL ONE (17:18)
--- NOTE | 2019-07-01 18:30 | NUR ---
Dr. Brownlee made aware that left lower extremity has no dopplerable pulse
[2019-07-01] MEDS: HYDROCODONE/APAP 5MG-325MG TAB PO PRN ×2 (18:50→23:39)
[2019-07-01] MEDS: HYDROMORPHONE 1MG/1ML INJ IV PRN ×2 (19:10→22:10)
--- NOTE | 2019-07-01 19:45 | NUR ---
Written order by Dr. Brownlee states to leave heparin at 500 units/hr, no titrating
[2019-07-01 20:11] LABS: CREATINE KINASE MB 0.8 ng/mL (0-5.0)
--- NOTE | 2019-07-01 20:23 | NUR ---
Dr. Brownlee called, said that CTA chest can be routine in AM and to keep heparin at 500 units/hr regardless of PTT
--- NOTE | 2019-07-01 22:00 | NUR ---
Pt complaining of urinary retention, abdomen distended. Bladder scan shows 900mls. Dr. Logan notified, order for aguirre catheter received.
--- NOTE | 2019-07-01 22:09 | NUR ---
Cardiology Consult Dictation# [id number]
[2019-07-02] VITALS (27 sets, daily range): BP systolic 109–168; BP diastolic 69–107
[2019-07-02] MEDS: ALTEPLASE RECOMBINANT 8 MG in DEXTROSE 5% 250ML 250 ML IV SCH ×2 (00:44→08:36)
[2019-07-02 01:30] LABS: CREATINE KINASE MB 0.9 ng/mL (0-5.0)
[2019-07-02] MEDS ORDERED: ALTEPLASE RECOMBINANT 8 MG in DEXTROSE 5% 250ML 250 ML IV SCH (01:30)
[2019-07-02] MEDS: HYDROMORPHONE 1MG/1ML INJ IV PRN ×4 (01:50→16:37)
--- NOTE | 2019-07-02 04:41 | Consultation ---
DATE OF CONSULTATION: 07/01/2019 Cardiology consultation REQUESTING PHYSICIAN: Dr. Logan. REASON FOR CONSULTATION: Acute limb ischemia. HISTORY OF PRESENT ILLNESS: This is a 53-year-old woman with history of hypertension, hyperlipidemia, and tobacco use, who presents with complaints of left lower extremity pain and coolness. She was recently discharged from [facility] after admission for acute limb ischemia. She underwent thrombectomy and SUPERVISOR ALUMINUM BOAT ASSEMBLY of the left popliteal artery with adequate result and samaritan of flow. She was started on warfarin for anticoagulation. Workup during that admission revealed hepatomegaly with multiple masses throughout the right and left liver as well as numerous bilateral pulmonary nodules. The patient reports that she had her INR checked earlier this week with finding of INR of 3.17. She was instructed to hold her warfarin. This morning, she woke up with left leg pain and coldness around 1 a.m., she noted her foot with mottled as well in appearance. She presented to the ER for further evaluation. INR at presentation was noted to be 1.65, and stat lower extremity arterial Doppler was performed, which revealed a thrombus in the left popliteal artery. Again, she denies any chest pain, shortness breath, or palpitations. Denies any edema, orthopnea, or PND. REVIEW OF SYSTEMS: Negative except as per HPI. PAST MEDICAL HISTORY: 1. Hypertension. 2. Hyperlipidemia. 3. Peripheral arterial disease with recent thrombus in the left popliteal artery. 4. Tobacco use. 5. Metastatic cancer. 6. Liver cirrhosis. PAST SURGICAL HISTORY: Left foot tibial fibular fracture repair. ALLERGIES: PLEASE SEE EMR. MEDICATIONS: Please see medication list. SOCIAL HISTORY: Does endorse tobacco use. No alcohol or drugs. 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 FAMILY HISTORY: Noncontributory to current illness. PHYSICAL EXAMINATION: VITAL SIGNS: Temperature 96.8 degrees, pulse 84, respiratory rate 18, blood pressure 138/67, and oxygen saturation 98% on 2 L nasal cannula. GENERAL: Well-developed, well-nourished woman. HEENT: Normocephalic and atraumatic. Pupils equal. No scleral icterus. NECK: Supple. No thyromegaly or cervical lymphadenopathy. No carotid bruits. LUNGS: Clear to auscultation bilaterally. No wheezes or crackles. CARDIOVASCULAR: Normal rate. Regular rhythm. No murmur. Normal S1 and S2. ABDOMEN: Soft and nontender. EXTREMITIES: No edema. Left foot cool and mottled. NEUROLOGIC: Nonfocal exam. LABS: INR 1.65, WBC 13.74, hemoglobin 9.4, hematocrit 30, and platelets 661. Sodium 131, potassium 3.1, chloride 93, CO2 of 25, BUN 6, creatinine 0.6. Troponin less than 0.10. IMPRESSION: 1. Acute thrombosis of the left popliteal artery. 2. Acute limb ischemia. 3. Hypertension. 4. Hyperlipidemia. 5. Metastatic cancer. 6. Tobacco use. RECOMMENDATIONS: Continue heparin drip. The patient will be taken to the cardiac catheterization laboratory again for thrombectomy. In the meantime, continue home cardiac medications including Plavix. The patient is awaiting outpatient biopsy for diagnosis of her metastatic disease. Given failure of Eliquis and warfarin at this point, we would recommend Lovenox for anticoagulation long-term. Monitor the patient on telemetry. Continue home cardiac medications, otherwise. Thank you for this consult. We will continue to follow. Alecia Mcbride MD ABS/MODL /[id number]
[2019-07-02 05:05] LABS: BASOPHILS % 0.2 % (0.0-1.0); EOSINOPHILS % 0.1 % (0.0-6.0); HEMATOCRIT 30.3 % (34.2-44.1); HEMOGLOBIN 9.3 g/dL (12.0-16.0); LYMPHOCYTES # (AUTO) 1.1 (1.0-3.2); LYMPHOCYTES % 8.7 % (18.0-39.1); MEAN CORPUSCULAR HEMOGLOBIN 25.3 pg (28-32); MEAN CORPUSCULAR HGB CONC 30.7 g/dL (31-35); MEAN CORPUSCULAR VOLUME 82.3 fL (81-99); MONOCYTES # (AUTO) 0.2 (0.2-0.8); MONOCYTES % 1.9 % (4.4-11.3); NEUTROPHILS # (AUTO) 11.3 (2.1-6.9); NEUTROPHILS % 88.5 % (38.7-80.0); PLATELET COUNT 454 x10e3/uL (140-360); RED BLOOD COUNT 3.68 x10e6/uL (3.6-5.1); RED CELL DISTRIBUTION WIDTH 17.7 % (11.7-14.4)
[2019-07-02 05:30] LABS: ALANINE AMINOTRANSFERASE 38 IU/L (0-55); ALBUMIN 2.4 g/dL (3.5-5.0); ALBUMIN/GLOBULIN RATIO 0.5 (0.8-2.0); ALKALINE PHOSPHATASE 367 IU/L (40-150); ANION GAP 16.2 mmol/L (8-16); BLOOD UREA NITROGEN 7 mg/dL (7-26); BUN/CREATININE RATIO 13 (6-25); CALCIUM 9.6 mg/dL (8.4-10.2); CARBON DIOXIDE 24 mmol/L (22-29); CHLORIDE 96 mmol/L (98-107); CHOL/HDL RATIO 8.8 (3.0-3.6); CHOLESTEROL 221 MD/DL (0-199); CREATININE, SERUM 0.55 mg/dL (0.57-1.11); EST GLOMERULAR FILTRATION RATE > 60 ML/MIN (60-); GLUCOSE 139 mg/dL (74-118); HDL CHOLESTEROL 25 MG/DL (40-60); LDL CHOLESTEROL 157 MG/DL (60-130); POTASSIUM 4.2 mmol/L (3.5-5.1); SODIUM 132 mmol/L (136-145); TRIGLYCERIDES 194 MG/DL (0-149)
--- NOTE | 2019-07-02 08:04 | NUR ---
IM- progress note O/N no events ROS: no f/c/s/N/V/D/ARRIAGA/vision changes/cp/sob/back pian v/s; revd PE tired appearing anicteric ns1s2 mod bs soft nt nd right leg/foot normal; 2+ DP; left foot pale, cool, unable to palpate DP and PT; 5th toe with gangrene at tip; tender toe; skin dry flat affect labs/meds; revd A/P: 53yoF Ischemic left foot- heparin gtt; asa; cardio eval PAD- asa/AC; check lipids Nicotine dependence in remission Metastatic disease of liver- f/u outpt with Presumed lung cancer- bx pending outpt set up Hypokalemia- recheck Moderate anemia- check panel HTN- treat at needed Prop: ppi on AC dispo: 07/02 plan for lovenox correction at home. HLD- statin; Hyponatremia- monitor; Had catheter delivered tPA, thrombectomy planned. Gael Logan MD, PhD.
[2019-07-02] MEDS: DOCUSATE SODIUM 100 MG CAP PO SCH ×2 (08:36→16:36)
[2019-07-02] MEDS ORDERED: MIDAZOLAM HCL 2 MG/2 ML VIAL ONE ×2 (08:55→10:18)
[2019-07-02] MEDS ORDERED: FENTANYL CITRATE/PF 100MCG/2 ML INJ ONE (08:55)
[2019-07-02] MEDS ORDERED: HEPARIN SOD (PORCINE) 1000 UNIT/ML 30ML ONE (08:55)
[2019-07-02] MEDS ORDERED: LIDOCAINE HCL 2% LOCAL 20 ML VIAL ONE (08:55)
[2019-07-02] MEDS ORDERED: HEPARIN SOD/SOD CHLORIDE 2,000 ML ONE (08:56)
[2019-07-02] MEDS ORDERED: SODIUM CHLORIDE 0.9% 1000ML 1,000 ML ONE (08:56)
[2019-07-02] MEDS ORDERED: NITROGLYCERIN/D5W 200 MCG/ML 250 ML ONE (08:56)
[2019-07-02] MEDS ORDERED: IOPAMIDOL 300MG/ML 100 ML INFUS..BTL IV ONE (08:56)
[2019-07-02] MEDS: PANTOPRAZOLE 40 MG 10ML VIAL IV SCH (09:20)
[2019-07-02] MEDS: HYDROCODONE/APAP 5MG-325MG TAB PO PRN ×4 (10:00→22:00)
[2019-07-02] MEDS ORDERED: HEPARIN 25,000 UNIT DRIP IV ONE (10:45)
[2019-07-02] MEDS: HEPARIN 25,000 UNIT 1,500 UNIT in DEXTROSE 5% 250ML 250 ML IV SCH (12:05)
[2019-07-02] MEDS: NITROGLYCERIN 2% OINT 1 GM PKT TOP SCH ×2 (12:09→17:52)
--- NOTE | 2019-07-02 13:31 | NUR ---
WOUND CARE SCREENING DONE 53 YO FEMALE R/T 14 FÉLIX SCORE NO PRESSURE RELATED INJURIES NOTED DURING TOTAL SKIN ASSESSMENT NURSING CONTINUES TO ASSIST PATIENT TO TURN AND OFFLOAD NURSING CONTINUES TO MAINTAIN MODERATE PUP INTERVENTIONS AND ALTERNATING PRESSURE SURFACE NURSING TO CONSULT WOUND CARE FOR ANY FUTURE SKIN CARE OR INTERVENTION NEEDS Addendum: 07/02/19 at 1333 by Alon Anaya RN Amended: Links added.
[2019-07-02] MEDS: WARFARIN SOD 5 MG TAB PO SCH (16:36)
[2019-07-02] MEDS ORDERED: MORPHINE SULFATE 2 MG/ML SYR 1ML IV PRN (16:45)
[2019-07-02 18:25] LABS: BASOPHILS % 0.1 % (0.0-1.0); EOSINOPHILS # (AUTO) 0.1 (0.0-0.4); EOSINOPHILS % 0.6 % (0.0-6.0); HEMATOCRIT 28.8 % (34.2-44.1); HEMOGLOBIN 9.1 g/dL (12.0-16.0); LYMPHOCYTES # (AUTO) 1.9 (1.0-3.2); LYMPHOCYTES % 11.3 % (18.0-39.1); MEAN CORPUSCULAR HEMOGLOBIN 25.9 pg (28-32); MEAN CORPUSCULAR HGB CONC 31.6 g/dL (31-35); MEAN CORPUSCULAR VOLUME 81.8 fL (81-99); MONOCYTES # (AUTO) 1.1 (0.2-0.8); MONOCYTES % 6.9 % (4.4-11.3); NEUTROPHILS # (AUTO) 13.3 (2.1-6.9); NEUTROPHILS % 80.4 % (38.7-80.0); PLATELET COUNT 394 x10e3/uL (140-360); RED BLOOD COUNT 3.52 x10e6/uL (3.6-5.1); RED CELL DISTRIBUTION WIDTH 17.9 % (11.7-14.4)
--- NOTE | 2019-07-02 19:11 | NUR ---
ptt 108.1 held gtt per heparin gtt protocol. nursing report given to wire loop machine operator. Alecia SNELL
--- NOTE | 2019-07-02 19:30 | NUR ---
received patient hemodynamically stable, no complaints raised, on morphine and norco for pain. Pedal pulses absent on palpation and doppler, but patient reports regaining pain sensation, on close observation
[2019-07-02] MEDS: MORPHINE SULFATE INJ 4 MG/ML INJ 1ML IV PRN ×2 (20:13→23:00)
[2019-07-02] MEDS: ATORVASTATIN 40 MG TAB PO SCH (20:15)
[2019-07-02] MEDS ORDERED: ATORVASTATIN 20 MG TAB PO SCH (21:00)
--- NOTE | 2019-07-02 21:56 | Progress Note ---
DATE: 07/01/2019 Cardiology Progress Note SUBJECTIVE: The patient denies chest pain or shortness of breath. She was taken back to the quality assurance qa lab analyst today for angioplasty of her left popliteal artery. OBJECTIVE: VITAL SIGNS: Temperature 97.1 degrees, pulse of 51, respiratory rate 18, blood pressure 132/72, oxygen saturation 98% on room air. GENERAL: Awake, alert, in no acute distress. LUNGS: Clear to auscultation bilaterally. No wheezes or crackles. CARDIOVASCULAR: Normal rate. Regular rhythm. No murmur. Normal S1, S2. ABDOMEN: Soft, nontender. EXTREMITIES: No edema. CARDIAC MEDICATIONS: Atorvastatin 40 mg p.o. at bedtime, warfarin 5 mg p.o. daily and heparin drip. LABORATORY DATA: WBC 16.56, hemoglobin 9.1, hematocrit 28.8 and platelets 394. Sodium 132, potassium 4.2, chloride 96, CO2 of 24, BUN 7, and creatinine 0.55, cholesterol 221, triglycerides 194, LDL 157 and HDL 25. Telemetry, normal sinus rhythm. ASSESSMENT: 1. Acute thrombosis of the left popliteal artery. 2. Acute limb ischemia. 3. Hypertension. 4. Hyperlipidemia. 5. Metastatic cancer. 6. Tobacco use. PLAN: Continue heparin drip bridge to therapeutic INR with warfarin as patient may not be able to obtain Lovenox on discharge. In the meantime, continue home cardiac medications including Plavix, start atorvastatin. Defer to Hematology/Oncology regarding timing of biopsy given likely metastatic disease. Monitor patient closely on telemetry. Thank you for this consult. We will continue to follow. Alecia Mcbride MD ABS/MODL /[id number]
--- NOTE | 2019-07-02 23:00 | NUR ---
Pedal pulses palpable but weak, patient complaining of pain, but on medication. Reassured, vitals remain stable
[2019-07-03] VITALS (20 sets, daily range): BP systolic 114–142; BP diastolic 68–83
[2019-07-03 01:30] LABS: INR 3.2; PROTHROMBIN TIME 33.5 seconds (11.9-14.5)
[2019-07-03] MEDS: NITROGLYCERIN 2% OINT 1 GM PKT TOP SCH ×5 (02:00→23:38)
--- NOTE | 2019-07-03 02:00 | NUR ---
ptt results back 74.4, no changes made. Pedal pulses palpable, patient calm and asleep
[2019-07-03] MEDS: MORPHINE SULFATE INJ 4 MG/ML INJ 1ML IV PRN ×6 (04:00→23:38)
[2019-07-03 05:26] LABS: BASOPHILS % 0.2 % (0.0-1.0); EOSINOPHILS # (AUTO) 0.6 (0.0-0.4); EOSINOPHILS % 3.9 % (0.0-6.0); HEMATOCRIT 27.6 % (34.2-44.1); HEMOGLOBIN 8.4 g/dL (12.0-16.0); LYMPHOCYTES # (AUTO) 1.8 (1.0-3.2); LYMPHOCYTES % 13.1 % (18.0-39.1); MEAN CORPUSCULAR HEMOGLOBIN 25.8 pg (28-32); MEAN CORPUSCULAR HGB CONC 30.4 g/dL (31-35); MEAN CORPUSCULAR VOLUME 84.9 fL (81-99); MONOCYTES % 6.9 % (4.4-11.3); NEUTROPHILS # (AUTO) 10.5 (2.1-6.9); NEUTROPHILS % 75.3 % (38.7-80.0); PLATELET COUNT 413 x10e3/uL (140-360); RED BLOOD COUNT 3.25 x10e6/uL (3.6-5.1); RED CELL DISTRIBUTION WIDTH 18.1 % (11.7-14.4)
[2019-07-03 05:41] LABS: ANION GAP 14.9 mmol/L (8-16); BLOOD UREA NITROGEN 10 mg/dL (7-26); BUN/CREATININE RATIO 18 (6-25); CALCIUM 8.8 mg/dL (8.4-10.2); CARBON DIOXIDE 26 mmol/L (22-29); CHLORIDE 94 mmol/L (98-107); CREATININE, SERUM 0.57 mg/dL (0.57-1.11); EST GLOMERULAR FILTRATION RATE > 60 ML/MIN (60-); GLUCOSE 98 mg/dL (74-118); POTASSIUM 3.9 mmol/L (3.5-5.1); SODIUM 131 mmol/L (136-145)
[2019-07-03] MEDS: HYDROCODONE/APAP 5MG-325MG TAB PO PRN ×4 (06:15→21:29)
--- NOTE | 2019-07-03 06:45 | NUR ---
IM- progress note O/N no events ROS: no f/c/s/N/V/D/ARRIAGA/vision changes/cp/sob/back pian v/s; revd PE tired appearing anicteric ns1s2 mod bs soft nt nd right leg/foot normal; 2+ DP; left foot pale, cool, unable to palpate DP and PT; 5th toe with gangrene at tip; tender toe; skin dry flat affect labs/meds; revd A/P: 53yoF Ischemic left foot- heparin gtt; asa; cardio eval PAD- asa/AC; check lipids Nicotine dependence in remission Metastatic disease of liver- f/u outpt with Presumed lung cancer- bx pending outpt set up Hypokalemia- recheck Moderate anemia- check panel HTN- treat at needed Prop: ppi on AC dispo: 07/02 plan for lovenox correction at home. HLD- statin; Hyponatremia- monitor; Had catheter delivered tPA, thrombectomy planned. 11-2 s/p thrombectomy; remains on heparin gtt; pain controlled; constipation- add senna to colace; Gael Logan MD, PhD.
[2019-07-03] MEDS ORDERED: HEPARIN 25,000 UNIT DRIP IV ONE (07:25)
[2019-07-03] MEDS: HEPARIN 25,000 UNIT 1,500 UNIT in DEXTROSE 5% 250ML 250 ML IV SCH (07:37)
--- NOTE | 2019-07-03 07:38 | NUR ---
NEW BAG HEPARIN GTT SPIKED. RATE AT 10.5ML/HR
[2019-07-03] MEDS: DOCUSATE SODIUM 100 MG CAP PO SCH ×2 (09:08→17:10)
[2019-07-03] MEDS: SENNOSIDES 8.6 MG TAB PO SCH ×2 (09:08→17:10)
[2019-07-03] MEDS: PANTOPRAZOLE 40 MG 10ML VIAL IV SCH (09:08)
--- NOTE | 2019-07-03 10:30 | NUR ---
PATIENT AMBULATED WITH WALKER IN [place]. STANDBY ASSIST ONLY DURING AMBULATION. PT RETURNED TO ROOM AFTER INCREASE IN PAIN TO LEFT FOOT. VOGT CATHETER REMOVED PER PATIENT REQUEST AND MD LUND TO REMOVE. PT NO LONGER REQUIRES CATHETER.
[2019-07-03] MEDS: CLOPIDOGREL BISULFATE 75 MG TAB PO SCH (13:09)
--- NOTE | 2019-07-03 13:43 | NUR ---
1200 ptt 66. result within therapeutic range. will retest at 1800
[2019-07-03] MEDS: WARFARIN SOD 5 MG TAB PO SCH (17:10)
--- NOTE | 2019-07-03 19:10 | NUR ---
1800 ptt 85 decreased heparin gtt by 100units/hr (9.5ml/hr)
[2019-07-03] MEDS: ATORVASTATIN 40 MG TAB PO SCH (20:02)
[2019-07-03] MEDS ORDERED: ATORVASTATIN 20 MG TAB PO SCH (21:00)
--- NOTE | 2019-07-03 21:41 | Progress Note ---
DATE: 07/03/2019 Cardiology Progress Note SUBJECTIVE: The patient denies chest pain or shortness of breath. She does note dyspnea with activity. OBJECTIVE: VITAL SIGNS: Temperature 98 degrees, pulse 78, respiratory rate 18, blood pressure 131/69, and oxygen saturation 99% on room air. GENERAL: Awake, alert, in no acute distress. LUNGS: Clear to auscultation bilaterally. No wheezes or crackles. CARDIOVASCULAR: Normal rate, regular rhythm. No murmur. Normal S1 and S2. ABDOMEN: Soft and nontender. EXTREMITIES: No edema. The right forefoot remains cool to palpation. CARDIAC MEDICATIONS: 1. Heparin drip. 2. Atorvastatin 40 mg p.o. at bedtime. 3. Warfarin 5 mg p.o. daily. 4. Plavix 75 mg p.o. daily. LABORATORY DATA: WBC 14, hemoglobin 8.4, hematocrit 27.6, and platelets 413. Sodium 131, potassium 3.9, chloride 94, CO2 of 26, BUN 10, and creatinine 0.57. TELEMETRY: Sinus tachycardia. IMPRESSION: 1. Acute thrombosis of the left popliteal artery. 2. Acute limb ischemia. 3. Hypertension. 4. Hyperlipidemia. 5. Metastatic cancer. 6. Tobacco use. RECOMMENDATIONS: Continue heparin drip as bridged to therapeutic INR with warfarin as the patient may not be able to obtain Lovenox on discharge. In the meantime, continue current cardiac medications including Plavix and atorvastatin. Defer to Oncology regarding timing of biopsy given likely metastatic disease. Monitor the patient closely on telemetry. Continue to monitor. Continue to allow foot to demarcate on the left. Thank you for this consult. We will continue to follow. Alecia Mcbride MD ABS/MODL /[id number]
[2019-07-04] VITALS (11 sets, daily range): BP systolic 115–146; BP diastolic 75–85
[2019-07-04 01:26] LABS: INR 3.01
[2019-07-04 01:27] LABS: PARTIAL THROMBOPLASTIN TIME 54.3 seconds (23.8-35.5)
[2019-07-04] MEDS: MORPHINE SULFATE INJ 4 MG/ML INJ 1ML IV PRN ×4 (03:32→20:24)
[2019-07-04 04:54] LABS: BASOPHILS % 0.2 % (0.0-1.0); EOSINOPHILS # (AUTO) 0.7 (0.0-0.4); EOSINOPHILS % 5.4 % (0.0-6.0); HEMOGLOBIN 8.3 g/dL (12.0-16.0); LYMPHOCYTES # (AUTO) 1.7 (1.0-3.2); LYMPHOCYTES % 13.6 % (18.0-39.1); MEAN CORPUSCULAR HEMOGLOBIN 25.2 pg (28-32); MEAN CORPUSCULAR HGB CONC 30.7 g/dL (31-35); MEAN CORPUSCULAR VOLUME 81.8 fL (81-99); MONOCYTES # (AUTO) 0.8 (0.2-0.8); NEUTROPHILS # (AUTO) 9.3 (2.1-6.9); NEUTROPHILS % 74.3 % (38.7-80.0); PLATELET COUNT 376 x10e3/uL (140-360); RED CELL DISTRIBUTION WIDTH 18.1 % (11.7-14.4)
[2019-07-04 05:09] LABS: INR 3.28; PROTHROMBIN TIME 34.2 seconds (11.9-14.5)
[2019-07-04 05:15] LABS: ANION GAP 14.8 mmol/L (8-16); BLOOD UREA NITROGEN 7 mg/dL (7-26); BUN/CREATININE RATIO 12 (6-25); CALCIUM 8.8 mg/dL (8.4-10.2); CARBON DIOXIDE 27 mmol/L (22-29); CHLORIDE 95 mmol/L (98-107); CREATININE, SERUM 0.57 mg/dL (0.57-1.11); EST GLOMERULAR FILTRATION RATE > 60 ML/MIN (60-); GLUCOSE 111 mg/dL (74-118); POTASSIUM 3.8 mmol/L (3.5-5.1); SODIUM 133 mmol/L (136-145)
[2019-07-04] MEDS: NITROGLYCERIN 2% OINT 1 GM PKT TOP SCH ×3 (06:18→17:02)
[2019-07-04] MEDS: HYDROCODONE/APAP 5MG-325MG TAB PO PRN ×4 (06:18→22:49)
[2019-07-04] MEDS: HEPARIN 25,000 UNIT 1,500 UNIT in DEXTROSE 5% 250ML 250 ML IV SCH ×2 (06:36→08:43)
[2019-07-04] MEDS: SENNOSIDES 8.6 MG TAB PO SCH ×2 (08:06→16:01)
[2019-07-04] MEDS: DOCUSATE SODIUM 100 MG CAP PO SCH ×2 (08:06→16:00)
[2019-07-04] MEDS: CLOPIDOGREL BISULFATE 75 MG TAB PO SCH (08:06)
[2019-07-04] MEDS: PANTOPRAZOLE 40 MG 10ML VIAL IV SCH (08:06)
[2019-07-04] MEDS ORDERED: ASPIRIN 325 MG TAB PO SCH (10:00)
[2019-07-04] MEDS: WARFARIN SOD 5 MG TAB PO SCH (16:01)
--- NOTE | 2019-07-04 17:19 | NUR ---
Pulses checked with Doppler and palpation q2 hrs. Pulses are intermittent and weak on L foot. L foot is warm at base and cool to touch on toes. Pt only able to move Left big toe upon assessment. Dr. Barber gave orders for aspirin 81 mg daily during rounds. PTT came back at 1200 as 102.5. Heparin drip decreased per protocol and placed on hold for 30 minutes. Per cardiology patient can go to the floor with telemetry, attending Dr. Logan informed and is ok with patient moving to the floor with telemetry. Patient medicated for pain with PRN pain medications as ordered. Will continue to monitor. Addendum: 07/04/19 at 1727 by Jolene Armstrong RN Dr. Mcbride notified that CT of chest was ordered to check for PE but patient has been refusing because they had it done last admission. gave orders to d/cDanna
[2019-07-04] MEDS: ATORVASTATIN 40 MG TAB PO SCH (20:24)
--- NOTE | 2019-07-04 21:05 | NUR ---
RECEIVED PATIENT FROM ICU AOX4, NO SIGNS OF DISTRESS NOTED. PATIENT VOICES PAIN AT LEFT FOOT AT A LEVEL OF 5 AND WAS MEDICATED EARLIER BY ICU NURSE. LEFT PEDAL PULSE IS WEAK AND COOL TO TOUCH UPON PALPATION, LEFT PINKY TOE IS NECROTIC, AND NITROBID INTACT. BED IS IN LOWEST POSITION, SIDE RAILS ARE UP, CALL LIGHT WITHIN REACH, WILL CONTINUE TO MONITOR.
--- NOTE | 2019-07-04 23:15 | Progress Note ---
DATE: 07/04/2019 Cardiology Progress Note SUBJECTIVE: The patient denies chest pain or shortness of breath. OBJECTIVE: VITAL SIGNS: Temperature 97.9 degrees, pulse 76, respiratory rate 13, blood pressure 119/77, oxygen saturation 97% on room air. GENERAL: Awake and alert, in no distress. LUNGS: Clear to auscultation bilaterally. No wheeze or crackles. CARDIOVASCULAR: Normal rate, regular rhythm. No murmur. Normal S1 and S2. ABDOMEN: Soft, nontender. EXTREMITIES: No edema. Left forefoot remains cool to palpation. CARDIAC MEDICATIONS: Warfarin 5 mg p.o. daily, heparin drip, Plavix 75 mg p.o. daily, atorvastatin 40 mg p.o. at bedtime, aspirin 81 mg p.o. daily. LABORATORY DATA: WBC 12.51, hemoglobin 8.3, hematocrit 27, and platelets 376. Sodium 133, potassium 3.8, chloride 95, CO2 of 27, BUN 7, and creatinine 0.57. TELEMETRY: Normal sinus rhythm. IMPRESSION: 1. Acute thrombosis of the left popliteal artery. 2. Acute limb ischemia. 3. Hypertension. 4. Hyperlipidemia. 5. Metastatic cancer. 6. Tobacco use. RECOMMENDATION: The patient's INR is now therapeutic. Heparin drip can be stopped at this time. Continue current cardiac medications including Plavix and atorvastatin. Monitor the patient on telemetry while admitted. Defer to Oncology regarding timing of biopsy given her likely metastatic disease. We will allow foot to demarcate on the left and monitor. Thank you for this consult. We will continue to follow. Alecia Mcbride MD ABS/MODL /[id number]
[2019-07-04 23:50] LABS: INR 3.6; PROTHROMBIN TIME 36.7 seconds (11.9-14.5)
[2019-07-04 23:52] LABS: PARTIAL THROMBOPLASTIN TIME 84.2 seconds (23.8-35.5)
[2019-07-05] VITALS (8 sets, daily range): BP systolic 126–154; BP diastolic 84–95
--- NOTE | 2019-07-05 00:15 | NUR ---
PATIENT'S PTT WAS 84 DECREASED RATE BY 100 UNITS NOW RUNNING AT 6 ML/HR
[2019-07-05] MEDS: NITROGLYCERIN 2% OINT 1 GM PKT TOP SCH ×4 (00:29→17:25)
--- NOTE | 2019-07-05 00:30 | NUR ---
PALPATED PATIENT'S PULSE ON LEFT FOOT. PULSES WERE INTERMITTENT AND WEAK, NITROBID PATCH PUT ON NEW SITE.
[2019-07-05] MEDS: MORPHINE SULFATE INJ 4 MG/ML INJ 1ML IV PRN ×5 (00:40→20:25)
[2019-07-05] MEDS: ONDANSETRON HCL INJ 2MG/ML 2ML 2 MG/ML VIAL IV PRN ×3 (03:36→15:10)
--- NOTE | 2019-07-05 03:59 | NUR ---
CHECKED PEDAL PULSES WITH PALPATION AND DOPPLER. PALPATIONS WERE FEINT AND WEAK AND COULD NOT HEAR SOUNDS WITH DOPPLER. CONTINUING TO MONITOR.
[2019-07-05] MEDS: HYDROCODONE/APAP 5MG-325MG TAB PO PRN ×4 (05:45→21:38)
--- NOTE | 2019-07-05 05:51 | NUR ---
PALPATED PATIENT'S PULSE ON LEFT FOOT. PULSE WAS STEADY AND SLIGHTLY STRONGER, CONTINUING TO MONITOR.
[2019-07-05 06:27] LABS: INR 3.69; PROTHROMBIN TIME 37.4 seconds (11.9-14.5)
[2019-07-05 06:29] LABS: PARTIAL THROMBOPLASTIN TIME 72.4 seconds (23.8-35.5)
--- NOTE | 2019-07-05 07:08 | NUR ---
IM- progress note O/N no events ROS: no f/c/s/N/V/D/ARRIAGA/vision changes/cp/sob/back pian v/s; revd PE tired appearing anicteric ns1s2 mod bs soft nt nd right leg/foot normal; 2+ DP; left foot pale, cool, unable to palpate DP and PT; 5th toe with gangrene at tip; tender toe; skin dry flat affect labs/meds; revd A/P: 53yoF Ischemic left foot- heparin gtt; asa; cardio eval PAD- asa/AC; check lipids Nicotine dependence in remission Metastatic disease of liver- f/u outpt with Presumed lung cancer- bx pending outpt set up Hypokalemia- recheck Moderate anemia- check panel HTN- treat at needed Prop: ppi on AC dispo: 07/02 plan for lovenox fpc at home. HLD- statin; Hyponatremia- monitor; Had catheter delivered tPA, thrombectomy planned. 11-2 s/p thrombectomy; remains on heparin gtt; pain controlled; constipation- add senna to colace; 11-3 no events; moved out of ICU; cont care. 11-4 consult podiatry. Gael Logan MD, PhD.
--- NOTE | 2019-07-05 07:13 | NUR ---
walking rounds completed with overnight cashier RN, received shift change report, pt sitting up in bed, semi-fowlers position, awake, alert, oriented X3, no c/o pain at this time. Addendum: 07/05/19 at 0714 by Marguerite Combs RN left pedal pulse present, but diminished; will continue to monitor.
[2019-07-05] MEDS: DOCUSATE SODIUM 100 MG CAP PO SCH ×2 (09:24→17:20)
[2019-07-05] MEDS: ASPIRIN 81 MG CHEW TAB PO SCH (09:24)
[2019-07-05] MEDS: CLOPIDOGREL BISULFATE 75 MG TAB PO SCH (09:24)
[2019-07-05] MEDS: SENNOSIDES 8.6 MG TAB PO SCH ×2 (09:25→17:21)
[2019-07-05] MEDS: PANTOPRAZOLE 40 MG 10ML VIAL IV SCH (09:28)
[2019-07-05] MEDS ORDERED: WARFARIN SOD 2 MG TAB PO SCH (17:00)
[2019-07-05] MEDS ORDERED: WARFARIN SOD 5 MG TAB PO SCH (17:00)
[2019-07-05] MEDS: WARFARIN SOD 2 MG TAB PO SCH (17:20)
[2019-07-05] MEDS ORDERED: SODIUM CHLORIDE 0.9% 250ML 250 ML IV ONE (17:30)
[2019-07-05] MEDS: HEPARIN 25,000 UNIT 1,500 UNIT in DEXTROSE 5% 250ML 250 ML IV SCH (19:40)
[2019-07-05] MEDS: ATORVASTATIN 40 MG TAB PO SCH (20:28)
--- NOTE | 2019-07-05 20:58 | Progress Note ---
DATE: 07/05/2019 Cardiology Progress Note SUBJECTIVE: No major events overnight. Continues to have pain in the left lower extremity. OBJECTIVE: VITAL SIGNS: Temperature afebrile, pulse 87, respiratory rate 18, blood pressure 154/95, saturating 98% on room air. GENERAL: Middle-aged female, in no acute distress. CARDIOVASCULAR: Regular rate and rhythm. No murmurs, rubs, or gallops. LUNGS: Clear to auscultation bilaterally. ABDOMEN: Soft, nontender, nondistended. NEURO AND PSYCH: Alert and oriented to person, place, and time. Normal affect. EXTREMITIES: No edema. Left forefoot remains cool to palpation with some mild redness. CARDIOVASCULAR MEDICATIONS: Reviewed. LABORATORY DATA: Reviewed. INR is 3.69 today, PTT therapeutic. TELEMETRY DATA: Reviewed, shows normal sinus rhythm. ASSESSMENT/PLAN: 1. Acute thrombosis, left popliteal artery. 2. Acute limb ischemia. 3. Hypertension. 4. Hyperlipidemia. 5. Metastatic cancer, unknown primary. 6. Tobacco use. RECOMMENDATIONS: INR is not therapeutic. However, perfusion in the foot is still poor. Discussed with Hematology/Oncology. Continue heparin one more day. Continue aspirin and Plavix. Foot care per Podiatry. Thank you for this consult. We will continue to follow. MD LISA Cordoba/OZIELL /[id number]
--- NOTE | 2019-07-05 21:20 | NUR ---
pt received at time. no ss of distress noted. pt co pain to left foot. discussed pain mngt poc. verbalized understanding. tele in place. will cont to follow poc. call rene within reach.
--- NOTE | 2019-07-05 23:00 | NUR ---
pt refusing blood transfusion. dr roman notified. no new orders given at time.
[2019-07-06] VITALS (10 sets, daily range): BP systolic 125–140; BP diastolic 73–95
[2019-07-06] MEDS: NITROGLYCERIN 2% OINT 1 GM PKT TOP SCH ×4 (01:00→18:31)
[2019-07-06] MEDS: MORPHINE SULFATE INJ 4 MG/ML INJ 1ML IV PRN ×5 (01:05→20:56)
[2019-07-06] MEDS: HYDROCODONE/APAP 5MG-325MG TAB PO PRN ×3 (02:11→23:10)
--- NOTE | 2019-07-06 03:54 | NUR ---
blood collected and sent to lab. no distress noted. call rene within reach.
[2019-07-06 05:46] LABS: BASOPHILS # (AUTO) 0.1 (0.0-0.1); BASOPHILS % 0.4 % (0.0-1.0); EOSINOPHILS # (AUTO) 0.8 (0.0-0.4); HEMATOCRIT 25.9 % (34.2-44.1); HEMOGLOBIN 8.1 g/dL (12.0-16.0); LYMPHOCYTES # (AUTO) 1.6 (1.0-3.2); LYMPHOCYTES % 12.4 % (18.0-39.1); MEAN CORPUSCULAR HEMOGLOBIN 25.8 pg (28-32); MEAN CORPUSCULAR HGB CONC 31.3 g/dL (31-35); MEAN CORPUSCULAR VOLUME 82.5 fL (81-99); MONOCYTES # (AUTO) 0.8 (0.2-0.8); MONOCYTES % 6.2 % (4.4-11.3); NEUTROPHILS # (AUTO) 9.4 (2.1-6.9); NEUTROPHILS % 74.4 % (38.7-80.0); PLATELET COUNT 397 x10e3/uL (140-360); RED BLOOD COUNT 3.14 x10e6/uL (3.6-5.1); RED CELL DISTRIBUTION WIDTH 17.8 % (11.7-14.4)
--- NOTE | 2019-07-06 06:24 | NUR ---
IM- progress note O/N no events ROS: no f/c/s/N/V/D/ARRIAGA/vision changes/cp/sob/back pian v/s; revd PE tired appearing anicteric ns1s2 mod bs soft nt nd right leg/foot normal; 2+ DP; left foot pale, cool, unable to palpate DP and PT; 5th toe with gangrene at tip; tender toe; skin dry flat affect labs/meds; revd A/P: 53yoF Ischemic left foot- heparin gtt; asa; cardio eval PAD- asa/AC; check lipids Nicotine dependence in remission Metastatic disease of liver- f/u outpt with Presumed lung cancer- bx pending outpt set up Hypokalemia- recheck Moderate anemia- check panel HTN- treat at needed Prop: ppi on AC dispo: 07/02 plan for lovenox prison at home. HLD- statin; Hyponatremia- monitor; Had catheter delivered tPA, thrombectomy planned. 11-2 s/p thrombectomy; remains on heparin gtt; pain controlled; constipation- add senna to colace; 11-3 no events; moved out of ICU; cont care. 11-4 consult podiatry. 11-5 f/u podiatry recs; cont medications; d/c planning; Gael Logan MD, PhD.
--- NOTE | 2019-07-06 07:59 | NUR ---
OFFERED SELF PAY PACKET PT DECILINED, HAS RECEIVED PRIOR VISIT, NURSE AT [facility]
[2019-07-06] MEDS: ASPIRIN 81 MG CHEW TAB PO SCH (09:27)
[2019-07-06] MEDS: DOCUSATE SODIUM 100 MG CAP PO SCH ×2 (09:27→17:32)
[2019-07-06] MEDS: SENNOSIDES 8.6 MG TAB PO SCH ×2 (09:27→17:31)
[2019-07-06] MEDS: CLOPIDOGREL BISULFATE 75 MG TAB PO SCH (09:27)
[2019-07-06] MEDS: PANTOPRAZOLE SOD 40 MG TABEC PO SCH (09:27)
[2019-07-06 09:40] LABS: INR 3.83; PROTHROMBIN TIME 38.5 seconds (11.9-14.5)
[2019-07-06 09:41] LABS: PARTIAL THROMBOPLASTIN TIME 84.2 seconds (23.8-35.5)
--- NOTE | 2019-07-06 09:57 | NUR ---
Notified Dr Romero regarding Stat PT/INR Result , new order received to STOP Heparin Drip, continue Coumadin 4mg daily, Daily Lab PT/INR, DC Lab PTT
[2019-07-06] MEDS ORDERED: SODIUM CHLORIDE 0.9% 250ML 250 ML ONE ×2 (11:40→17:59)
--- NOTE | 2019-07-06 12:15 | NUR ---
Patient signed consent for Blood Transfusion, first unit started @1200, no adverse reaction noted in 15min, keep monitoring.
--- NOTE | 2019-07-06 15:04 | NUR ---
Nutrition Screen Note RD Recommendation for Physician: - Continue current diet Plan of Care: RD following, monitoring for tolerance and adequacy Nutrition reason for involvement: Early LOS Primary Diagnose(s): L foot ischemia, gangrene to L toe PMH: ischemic L foot, metastatic liver disease, lung cancer, HTN, cirrhosis, PAD Ht: 67 in Wt: 177.44 lb BMI: 27.8 kg/m2 IBW: [address] Assessment: (07/06) 67 YOF admitted for ongoing L foot ischemia with recent thrombectomy. Pt seen today for early LOS. Pt reports good appetite and po intake currently and [employer]. Pt denies N/V/C/D. Questionable admit wt, pt weighing 159 lb a month ago per prior admit- no wt loss noted. Pt discussed during am rounds, podiatry consult pending. Discussed vitamin K intake and coumadin diet education reviewed at time of visit, pt declined additional diet education- states she still has handout provided by RD at prior admit. All questions and concerns addressed at time of visit. Chart reviewed. Labs and meds reviewed. Current Diet: Low Na Malnutrition Evaluation (07/06/19) The patient does not meet criteria for a specified degree of malnutrition at this time. Will re-evaluate at follow-up as appropriate. Diet Education Needs Assessment: Diet education indicated, pt receptive. Learner(s): pt Barriers: none Cultural/Language Modifications: none Readiness: eager Method: discussion Topics: Vitamin K sources and recommended intake Understanding/Compliance: good Diet tolerance: tolerating po Nutrition Care Level: Low Signed: Marcia Olmedo RD, LD, [facility]
[2019-07-06] MEDS ORDERED: FAMOTIDINE 20 MG TAB PO SCH (16:30)
[2019-07-06] MEDS: WARFARIN SOD 2 MG TAB PO SCH (17:32)
--- NOTE | 2019-07-06 18:18 | NUR ---
2nd unit of blood initiated , no adverse reaction noted in 15 min, keep monitoring
--- NOTE | 2019-07-06 18:49 | Progress Note ---
DATE: 07/06/2019 Cardiology Progress Note SUBJECTIVE: The patient denies chest pain or shortness of breath. OBJECTIVE: VITAL SIGNS: Temperature 97.5 degrees, pulse 85, respiratory rate 18, blood pressure 131/87, and oxygen saturation 97% on room air. GENERAL: Awake, alert, in no acute distress. LUNGS: Clear to auscultation bilaterally. No wheezes or crackles. CARDIOVASCULAR: Normal rate. Regular rhythm. No murmur. Normal S1, S2. ABDOMEN: Soft, nontender. EXTREMITIES: No edema. Left forefoot remains cool to palpation with faint erythema to the mid foot. CARDIAC MEDICATIONS: 1. Aspirin 81 mg p.o. daily. 2. Plavix 75 mg p.o. daily. 3. Warfarin 4 mg p.o. daily. LABORATORY DATA: WBC 12.58, hemoglobin 8.1, hematocrit 25.9, platelets 397. INR 3.83. TELEMETRY: Normal sinus rhythm. IMPRESSION: 1. Acute thrombosis of the left popliteal artery. 2. Acute limb ischemia. 3. Hypertension. 4. Hyperlipidemia. 5. Metastatic cancer, unknown primary. 6. Tobacco use. RECOMMENDATIONS: INR is supratherapeutic. Heparin has been stopped. Perfusion to the foot remains poor. Continue current cardiac medications. Management of foot per Podiatry. Thank you for this consult. We will continue to follow. Alecia Mcbride MD ABS/MODL /[id number]
--- NOTE | 2019-07-06 20:24 | NUR ---
The patient is sitting in bed. AAOX3. IV Patent, PRBC's being transfused with no side effects noted. Vitals within normal range at this time. Patient's left foot is elevated with a pillow. It's cool to the touch and mottled. Left pinky toe is necrotic. Weak pulse palpated on pedis dorsalis. Side rails up, bed low and wheels are locked. Call light is within reach. Patient has a family member in the room. Will continue monitoring the patient.
[2019-07-06] MEDS: ATORVASTATIN 40 MG TAB PO SCH (20:54)
[2019-07-07] VITALS (8 sets, daily range): BP systolic 126–144; BP diastolic 85–98
[2019-07-07] MEDS: NITROGLYCERIN 2% OINT 1 GM PKT TOP SCH ×5 (00:13→23:40)
[2019-07-07] MEDS: MORPHINE SULFATE INJ 4 MG/ML INJ 1ML IV PRN ×5 (01:17→20:42)
[2019-07-07 06:03] LABS: BASOPHILS % 0.3 % (0.0-1.0); EOSINOPHILS # (AUTO) 0.7 (0.0-0.4); EOSINOPHILS % 4.8 % (0.0-6.0); HEMATOCRIT 30.3 % (34.2-44.1); HEMOGLOBIN 9.7 g/dL (12.0-16.0); LYMPHOCYTES # (AUTO) 1.5 (1.0-3.2); LYMPHOCYTES % 10.3 % (18.0-39.1); MEAN CORPUSCULAR HEMOGLOBIN 26.3 pg (28-32); MEAN CORPUSCULAR VOLUME 82.1 fL (81-99); MONOCYTES % 7.3 % (4.4-11.3); NEUTROPHILS # (AUTO) 10.8 (2.1-6.9); NEUTROPHILS % 76.7 % (38.7-80.0); PLATELET COUNT 440 x10e3/uL (140-360); RED BLOOD COUNT 3.69 x10e6/uL (3.6-5.1)
[2019-07-07 06:17] LABS: INR 3.1; PROTHROMBIN TIME 32.7 seconds (11.9-14.5)
[2019-07-07 06:19] LABS: ANION GAP 15.8 mmol/L (8-16); BLOOD UREA NITROGEN 6 mg/dL (7-26); BUN/CREATININE RATIO 11 (6-25); CALCIUM 8.9 mg/dL (8.4-10.2); CARBON DIOXIDE 26 mmol/L (22-29); CHLORIDE 95 mmol/L (98-107); CREATININE, SERUM 0.53 mg/dL (0.57-1.11); EST GLOMERULAR FILTRATION RATE > 60 ML/MIN (60-); GLUCOSE 99 mg/dL (74-118); POTASSIUM 3.8 mmol/L (3.5-5.1); SODIUM 133 mmol/L (136-145)
[2019-07-07] MEDS: HYDROCODONE/APAP 5MG-325MG TAB PO PRN ×3 (07:33→18:34)
--- NOTE | 2019-07-07 09:02 | NUR ---
IM- progress note O/N no events ROS: no f/c/s/N/V/D/ARRIAGA/vision changes/cp/sob/back pian v/s; revd PE tired appearing anicteric ns1s2 mod bs soft nt nd right leg/foot normal; 2+ DP; left foot pale, cool, unable to palpate DP and PT; 5th toe with gangrene at tip; tender toe; skin dry flat affect labs/meds; revd A/P: 53yoF Ischemic left foot- heparin gtt; asa; cardio eval PAD- asa/AC; check lipids Nicotine dependence in remission Metastatic disease of liver- f/u outpt with Presumed lung cancer- bx pending outpt set up Hypokalemia- recheck Moderate anemia- check panel HTN- treat at needed Prop: ppi on AC dispo: 07/02 plan for lovenox usp at home. HLD- statin; Hyponatremia- monitor; Had catheter delivered tPA, thrombectomy planned. 11-2 s/p thrombectomy; remains on heparin gtt; pain controlled; constipation- add senna to colace; 11-3 no events; moved out of ICU; cont care. 11-4 consult podiatry. 11-5 f/u podiatry recs; cont medications; d/c planning; 07/07 blood clots passed vaginally; check U/S uterus; TALEND ETL DEVELOPER consult for possible D&C. Pt will need to have antiplatelets/AC. rec'd 2U PRBC overnight; Gael Logan MD, PhD.
[2019-07-07] MEDS: DOCUSATE SODIUM 100 MG CAP PO SCH ×2 (09:32→17:34)
[2019-07-07] MEDS: CLOPIDOGREL BISULFATE 75 MG TAB PO SCH (09:32)
[2019-07-07] MEDS: PANTOPRAZOLE SOD 40 MG TABEC PO SCH (09:32)
[2019-07-07] MEDS: ASPIRIN 81 MG CHEW TAB PO SCH (09:32)
[2019-07-07] MEDS: SENNOSIDES 8.6 MG TAB PO SCH ×2 (09:32→17:34)
[2019-07-07] MEDS: MAGNESIUM HYDROXIDE 30 ML UDC PO PRN (09:32)
--- NOTE | 2019-07-07 11:40 | NUR ---
CALLED [facility] OFFICE TO VERIFY CONSULT. OFFICE REFUSED CONSULT AFTER BEING TOLD PT IS SELF PAY CALLED MD NUNEZ TO NOTIFY MD NUNEZ STATES TO FIND PODIATRY THAT WILL TAKE HER CONSULTING CHRISTINA AT THIS TIME
--- NOTE | 2019-07-07 16:13 | Diagnostic Imaging Report ---
Exam: Pelvic ultrasound. History: Vaginal bleeding Comparison: None Findings: Transabdominal and endovaginal sonographic evaluation of the pelvis. The uterus is anteverted in position, measuring 10.5 x 5.7 x 6.6cm. The endometrial stripe is markedly thickened, measuring up to 3.6 cm with associated vascularity. The ovaries are not well-visualized due to overlying bowel gas. Hypoechoic lesions of the uterine wall measuring up to 2.2 x 1.0 x 2.0 cm and likely represent fibroids. Trace pelvic free fluid. Impression: Markedly thickened endometrial stripe with associated vascularity is concerning for endometrial carcinoma in this postmenopausal patient. Recommend gynecological consultation and endometrial sampling. Trace pelvic free fluid. Multiple uterine fibroids measuring up to 2.2 cm. Signed by: Julio Esquivel MD on 07/07/2019 4:09 PM
[2019-07-07] MEDS: WARFARIN SOD 2 MG TAB PO SCH (17:34)
[2019-07-07] MEDS: ONDANSETRON HCL INJ 2MG/ML 2ML 2 MG/ML VIAL IV PRN (18:34)
--- NOTE | 2019-07-07 18:35 | NUR ---
BOOT GIVEN TO PT AT THIS TIME PER MD VASQUEZ
[2019-07-07] MEDS: ATORVASTATIN 40 MG TAB PO SCH (20:31)
[2019-07-08] VITALS (8 sets, daily range): BP systolic 121–143; BP diastolic 65–86
[2019-07-08] MEDS: MORPHINE SULFATE INJ 4 MG/ML INJ 1ML IV PRN ×7 (00:03→20:51)
--- NOTE | 2019-07-08 01:03 | Consultation ---
DATE OF CONSULTATION: 07/07/2019 Podiatry Consultation REASON FOR CONSULTATION: The patient was seen at bedside. She says her pain is moderately controlled. She is here because she continues with lower limb ischemia. HISTORY OF PRESENT ILLNESS: She says in June, she developed thrombus. She had surgery for it. She went home. She returned about 10 days later with a second thrombus. She was then put on Coumadin, which worked well. At the end of the month, she returned back to the ER with another thrombus and she has been admitted since then. PAST MEDICAL HISTORY: Hyperlipidemia, PAD, metastatic cancer, liver cirrhosis, hypertension, and liver cirrhosis. PAST SURGICAL HISTORY: 1. Arthrectomy, left. 2. Fibular fracture repair, left. ALLERGIES: PENICILLIN. MEDICATIONS: Please refer to MAR. Of interest to this consult are aspirin, Plavix, nitroglycerin paste, and warfarin. REVIEW OF SYSTEMS: Noncontributory except for pain and ischemia to the left. LABORATORY DATA: Her white blood count is trending down. She has 14.3, hemoglobin 9.7, hematocrit of 30.3, lymphocytes 1.5, and neutrophils 10.8. Lower extremity physical exam, pedal pulses not palpable to the left. Capillary filling time is delayed. She has some demarcation and gangrenous changes to the left 5th. The 1st and the 3rd are also demarcating. Most of the demarcation is occurring at the forefoot. There is no streaking erythema. No ascending lymphangitis. This is demarcating and this turned into a dry type of gangrene. Intrinsic minus type of foot. No open areas. No interdigital maceration. Muscle mass is symmetrical. ASSESSMENT: 1. Acute thrombosis of the left popliteal. 2. Limb ischemia. 3. History of thrombi, possibly secondary to liver cirrhosis. 4. Hypertension. 5. Hyperlipidemia. 6. Metastatic cancer. 7. Liver cirrhosis. PLAN: I have discussed treatment with the patient. At this point, the lower extremity limb is demarcating, but the gangrene is very stable, dry, and intact. I agree with the nitroglycerin paste. I am going to recommend a postop shoe to offload at all times. I discussed with her as long as the gangrene is dry and intact and not wet, we will use continue to let it demarcate. We will continue to follow intermittently. Thank you for letting us participate in the care of this patient. HEVER Kirby/SAMIRA /[id number]
[2019-07-08] MEDS: NITROGLYCERIN 2% OINT 1 GM PKT TOP SCH ×3 (05:52→17:45)
[2019-07-08] MEDS: HYDROCODONE/APAP 5MG-325MG TAB PO PRN ×3 (05:56→16:31)
--- NOTE | 2019-07-08 06:06 | NUR ---
Patient noted to have clots from vagina x2 when using the bathroom. New orders received from Dr. Beyer.
[2019-07-08 06:51] LABS: INR 4.61
[2019-07-08 06:55] LABS: PROTHROMBIN TIME 44.4 seconds (11.9-14.5)
[2019-07-08 07:07] LABS: BASOPHILS % 0.3 % (0.0-1.0); EOSINOPHILS # (AUTO) 0.6 (0.0-0.4); EOSINOPHILS % 4.1 % (0.0-6.0); HEMATOCRIT 28.1 % (34.2-44.1); LYMPHOCYTES # (AUTO) 1.4 (1.0-3.2); LYMPHOCYTES % 10.1 % (18.0-39.1); MEAN CORPUSCULAR HEMOGLOBIN 26.5 pg (28-32); MEAN CORPUSCULAR VOLUME 82.9 fL (81-99); MONOCYTES # (AUTO) 1.1 (0.2-0.8); MONOCYTES % 7.9 % (4.4-11.3); PLATELET COUNT 476 x10e3/uL (140-360); RED BLOOD COUNT 3.39 x10e6/uL (3.6-5.1); RED CELL DISTRIBUTION WIDTH 17.4 % (11.7-14.4)
--- NOTE | 2019-07-08 07:08 | NUR ---
IM- progress note O/N no events ROS: no f/c/s/N/V/D/ARRIAGA/vision changes/cp/sob/back pian v/s; revd PE tired appearing anicteric ns1s2 mod bs soft nt nd right leg/foot normal; 2+ DP; left foot pale, cool, unable to palpate DP and PT; 5th toe with gangrene at tip; tender toe; skin dry flat affect labs/meds; revd A/P: 53yoF Ischemic left foot- heparin gtt; asa; cardio eval PAD- asa/AC; check lipids Nicotine dependence in remission Metastatic disease of liver- f/u outpt with Presumed lung cancer- bx pending outpt set up Hypokalemia- recheck Moderate anemia- check panel HTN- treat at needed Prop: ppi on AC dispo: 07/02 plan for lovenox correction at home. HLD- statin; Hyponatremia- monitor; Had catheter delivered tPA, thrombectomy planned. 11-2 s/p thrombectomy; remains on heparin gtt; pain controlled; constipation- add senna to colace; -3 no events; moved out of ICU; cont care. -4 consult podiatry. -5 f/u podiatry recs; cont medications; d/c planning; 07/07 blood clots passed vaginally; check U/S uterus; HELPER TEACHER consult for possible D&C. Pt will need to have antiplatelets/AC. rec'd 2U PRBC overnight; 07/08 f/u labs; Large vaginal clots- U/S shows Marked endometrial thickening, concerning for possible carcinoma; f/u HELPER TEACHER recs. AC per hematology. Gael Logan MD, PhD.
[2019-07-08] MEDS: DOCUSATE SODIUM 100 MG CAP PO SCH ×2 (08:32→16:30)
[2019-07-08] MEDS: CLOPIDOGREL BISULFATE 75 MG TAB PO SCH (08:32)
[2019-07-08] MEDS: ASPIRIN 81 MG CHEW TAB PO SCH (08:32)
[2019-07-08] MEDS: SENNOSIDES 8.6 MG TAB PO SCH ×2 (08:32→16:30)
[2019-07-08] MEDS: PANTOPRAZOLE SOD 40 MG TABEC PO SCH (08:32)
[2019-07-08] MEDS: MAGNESIUM HYDROXIDE 30 ML UDC PO PRN (09:09)
--- NOTE | 2019-07-08 09:36 | NUR ---
spoke to md cardoso . talked about seeing pt today and maybe scheduling outpatient d+C. aware of pt of now . states he will see pt later today
[2019-07-08] MEDS: ONDANSETRON HCL INJ 2MG/ML 2ML 2 MG/ML VIAL IV PRN (17:45)
--- NOTE | 2019-07-08 19:23 | Consultation ---
DATE OF CONSULTATION: 07/08/2019 HISTORY OF PRESENT ILLNESS: The patient is a 53-year-old, who came in complaining of lower extremity pain and coldness. She has recently been discharged from [facility] for acute limb ischemia. During her stay, she is placed on Coumadin and heparin and had thrombectomy and MARKETING DATABASE ANALYST for the left popliteal artery. However, she started complaining of excessive vaginal bleeding for the last couple of days with clots. She has a history of bleeding on and off for the last 6 months. Her last proper period was 3 years ago. The patient has high INR over 4.9 as well as high PTT. PAST MEDICAL HISTORY: Significant of hypertension, hyperlipidemia, peripheral arterial disease, tobacco use, metastatic cancer, and liver cirrhosis. PAST SURGICAL HISTORY: Left foot tibial-fibular fracture repair and peripheral arterial disease and thrombectomy repair. ALLERGIES: SEE THE EMR. MEDICATIONS: See the EMR. SOCIAL HISTORY: She smokes tobacco, but no alcohol or drug abuse. FAMILY HISTORY: No family history of interest. PHYSICAL EXAMINATION: VITAL SIGNS: Stable. CHEST: Clear to auscultation. CARDIOVASCULAR: Regular rate and rhythm. ABDOMEN: Soft and nontender. ASSESSMENT AND PLAN: Postmenopausal bleeding. Ultrasound showed thickened endometrium. The situation was explained to the patient and the necessity for endometrial biopsy as soon as possible was explained. However, we would not be able to do a D and C at this stage due to the bleeding tendency and the complications that can be encountered. The patient was asked once she is discharged from the hospital, she can come to the office and have an endometrial biopsy. The patient understands fully. The situation for all her questions were answered. Once again, thank you very much for asking me to see this patient. Please do not hesitate to call me if I can be of any further help in the future. Nimo Figueroa MD DD/SAMIRA /[id number] cc: Gael Logan MD
[2019-07-08] MEDS: ATORVASTATIN 40 MG TAB PO SCH (20:51)
[2019-07-09] VITALS (9 sets, daily range): BP systolic 111–137; BP diastolic 58–94
[2019-07-09] MEDS: MORPHINE SULFATE INJ 4 MG/ML INJ 1ML IV PRN ×8 (00:22→23:03)
--- NOTE | 2019-07-09 01:11 | NUR ---
Temp[ rechecked 99.7.
[2019-07-09] MEDS: NITROGLYCERIN 2% OINT 1 GM PKT TOP SCH ×4 (06:20→17:14)
[2019-07-09 06:33] LABS: INR 2.67; PROTHROMBIN TIME 29.2 seconds (11.9-14.5)
--- NOTE | 2019-07-09 06:55 | NUR ---
Complaint of constipation refused prn medication.
--- NOTE | 2019-07-09 07:00 | NUR ---
BEDSIDE ROUNDS COMPLETE NO DISTRESS NOTED, UPDATED ON POC VOCIED UNDERSTANDING, DENIES PAIN AT THIS TIME, LEFT FOOT, BIG TOE,3RD TOE BLACK IN COLOR NOTED, LEFT PINKY BLACK NECROTIC COOL TO TOUCH, PULSES PALPABLE, FOOT WARM TO TOUCH, NO OTHER CO VOICED CALL LIGHT IN REACH WILL CONTINUE TO MONITOR
[2019-07-09] MEDS: CLOPIDOGREL BISULFATE 75 MG TAB PO SCH (09:23)
[2019-07-09] MEDS: ASPIRIN 81 MG CHEW TAB PO SCH (09:23)
[2019-07-09] MEDS: DOCUSATE SODIUM 100 MG CAP PO SCH ×2 (09:23→17:13)
[2019-07-09] MEDS: SENNOSIDES 8.6 MG TAB PO SCH ×2 (09:23→17:00)
[2019-07-09] MEDS: PANTOPRAZOLE SOD 40 MG TABEC PO SCH (09:23)
--- NOTE | 2019-07-09 10:00 | NUR ---
IM- progress note O/N no events ROS: no f/c/s/N/V/D/ARRIAGA/vision changes/cp/sob/back pian v/s; revd PE tired appearing anicteric ns1s2 mod bs soft nt nd right leg/foot normal; 2+ DP; left foot pale, cool, unable to palpate DP and PT; 5th toe with gangrene at tip; tender toe; skin dry flat affect labs/meds; revd A/P: 53yoF Ischemic left foot- heparin gtt; asa; cardio eval PAD- asa/AC; check lipids Nicotine dependence in remission Metastatic disease of liver- f/u outpt with Presumed lung cancer- bx pending outpt set up Hypokalemia- recheck Moderate anemia- check panel HTN- treat at needed Prop: ppi on AC dispo: 07/02 plan for lovenox fdc at home. HLD- statin; Hyponatremia- monitor; Had catheter delivered tPA, thrombectomy planned. -2 s/p thrombectomy; remains on heparin gtt; pain controlled; constipation- add senna to colace; 07-04 no events; moved out of ICU; cont care. 07-05 consult podiatry. 07-06 f/u podiatry recs; cont medications; d/c planning; 07/07 blood clots passed vaginally; check U/S uterus; CLAY DRY PRESS MIXER OPERATOR consult for possible D&C. Pt will need to have antiplatelets/AC. rec'd 2U PRBC overnight; 07/08 f/u labs; Large vaginal clots- U/S shows Marked endometrial thickening, concerning for possible carcinoma; f/u CLAY DRY PRESS MIXER OPERATOR recs. AC per hematology. 07/09 CLAY DRY PRESS MIXER OPERATOR wants to wait for any procedures at a later date. Plans for home on coumadin. Will need inr 3.5 to 4, while trying to avoid bleeding; AVOID VITAMIN K USE. discussed with . Patient will need to see the next day after being discharged. We will continue treatment at this time and await therapeutic inr without active bleeding. Gael Logan MD, PhD.
[2019-07-09] MEDS: WARFARIN SOD 5 MG TAB PO SCH (17:00)
[2019-07-09] MEDS: HYDROCODONE/APAP 5MG-325MG TAB PO PRN ×2 (17:14→21:37)
[2019-07-09] MEDS: ATORVASTATIN 40 MG TAB PO SCH (21:31)
[2019-07-10] VITALS (7 sets, daily range): BP systolic 107–129; BP diastolic 64–81
[2019-07-10] MEDS: NITROGLYCERIN 2% OINT 1 GM PKT TOP SCH ×4 (00:18→18:50)
--- NOTE | 2019-07-10 00:54 | Operative Report ---
DATE OF PROCEDURE: 07/01/2019 SURGEON: kC Brownlee DO PROCEDURES PERFORMED: 1. Conscious sedation, 30 minutes. 2. Abdominal aortography. 3. Third-order peripheral angiography of the lower extremity. 4. Transcatheter therapy for arterial infusion for thrombolysis. PREPROCEDURE DIAGNOSIS: Peripheral artery disease. POSTPROCEDURE DIAGNOSIS: Extensive thrombus burden of the extremity. ESTIMATED BLOOD LOSS: Less than 20 mL. SPECIMENS REMOVED: None. PROCEDURE IN DETAIL: After informed consent was obtained, the patient was brought to the cardiac catheterization laboratory in the fasting and nonsedated state. Bilateral groins were prepped and draped in the usual sterile fashion. A 2% lidocaine was infiltrated over the right anterior groin for local anesthesia. Using micropuncture needle, the right common femoral artery was accessed via modified Seldinger technique and a 5-Turkmen sheath was placed. Next abdominal aortography was performed using Omni Flush catheter. Next, this catheter was taken up and over the iliac bifurcation placed in the third order position and this revealed significant occlusion of the left distal superficial femoral artery, popliteal artery, and all tibial vessels. Next, I crossed the occlusion with a Fine Advantage wire with placement of Ellen infusion catheter and the patient was started on tPA. Ck Brownlee DO BM/MODL /[id number]
[2019-07-10] MEDS: HYDROCODONE/APAP 5MG-325MG TAB PO PRN ×3 (03:46→16:50)
[2019-07-10] MEDS: MORPHINE SULFATE INJ 4 MG/ML INJ 1ML IV PRN ×5 (06:00→22:19)
[2019-07-10 06:32] LABS: INR 2.4; PROTHROMBIN TIME 26.9 seconds (11.9-14.5)
[2019-07-10] MEDS: PANTOPRAZOLE SOD 40 MG TABEC PO SCH (09:01)
[2019-07-10] MEDS: ONDANSETRON HCL INJ 2MG/ML 2ML 2 MG/ML VIAL IV PRN ×3 (09:01→18:51)
[2019-07-10] MEDS: CLOPIDOGREL BISULFATE 75 MG TAB PO SCH (09:02)
[2019-07-10] MEDS: DOCUSATE SODIUM 100 MG CAP PO SCH ×2 (09:02→16:49)
[2019-07-10] MEDS: SENNOSIDES 8.6 MG TAB PO SCH ×2 (09:02→16:49)
[2019-07-10] MEDS: ASPIRIN 81 MG CHEW TAB PO SCH (09:02)
--- NOTE | 2019-07-10 10:15 | NUR ---
IM- progress note O/N no events ROS: no f/c/s/N/V/D/ARRIAGA/vision changes/cp/sob/back pian v/s; revd PE tired appearing anicteric ns1s2 mod bs soft nt nd right leg/foot normal; 2+ DP; left foot pale, cool, unable to palpate DP and PT; 5th toe with gangrene at tip; tender toe; skin dry flat affect labs/meds; revd A/P: 53yoF Ischemic left foot- heparin gtt; asa; cardio eval PAD- asa/AC; check lipids Nicotine dependence in remission Metastatic disease of liver- f/u outpt with Presumed lung cancer- bx pending outpt set up Hypokalemia- recheck Moderate anemia- check panel HTN- treat at needed Prop: ppi on AC dispo: 07/02 plan for lovenox snf at home. HLD- statin; Hyponatremia- monitor; Had catheter delivered tPA, thrombectomy planned. 07-03 s/p thrombectomy; remains on heparin gtt; pain controlled; constipation- add senna to colace; 07-04 no events; moved out of ICU; cont care. 07-05 consult podiatry. 07-06 f/u podiatry recs; cont medications; d/c planning; 07/07 blood clots passed vaginally; check U/S uterus; LOOM CHANGER consult for possible D&C. Pt will need to have antiplatelets/AC. rec'd 2U PRBC overnight; 07/08 f/u labs; Large vaginal clots- U/S shows Marked endometrial thickening, concerning for possible carcinoma; f/u LOOM CHANGER recs. AC per hematology. 07/09 LOOM CHANGER wants to wait for any procedures at a later date. Plans for home on coumadin. Will need inr 3.5 to 4, while trying to avoid bleeding; AVOID VITAMIN K USE. discussed with . Patient will need to see the next day after being discharged. We will continue treatment at this time and await therapeutic inr without active bleeding. 07/10 inr 2.4; check H/H; await inr 3.5 to 4. May eventually need amputation; monitor closely; Gael Logan MD, PhD.
[2019-07-10 10:30] LABS: HEMATOCRIT 26.3 % (34.2-44.1); HEMOGLOBIN 8.1 g/dL (12.0-16.0)
[2019-07-10] MEDS ORDERED: SODIUM CHLORIDE 0.9% 250ML 250 ML IV ONE (11:00)
[2019-07-10] MEDS: LACTULOSE SYRUP 20 GM/30 ML UDC PO PRN (11:13)
--- NOTE | 2019-07-10 14:53 | Progress Note ---
DATE: 07/10/2019 Cardiology Progress Note SUBJECTIVE: No major events overnight. OBJECTIVE: VITAL SIGNS: Temperature afebrile, pulse 86, respiratory rate 16, blood pressure 118/81, saturating 98% on room air. GENERAL: Middle-aged female, in no acute distress. CARDIOVASCULAR: Regular rate and rhythm. No murmurs, rubs, or gallops. LUNGS: Clear to auscultation bilaterally. ABDOMEN: Soft, nontender, nondistended. NEURO AND PSYCH: Alert and oriented to person, place, and time. Normal affect. VASCULAR: Left foot with a palpable dorsalis pedis pulse, however, poor tissue perfusion. Discoloration continues to worsen. INPATIENT MEDICATIONS: Reviewed. LABORATORY DATA: Reviewed. TELEMETRY DATA: Reviewed. IMAGING DATA: Reviewed. Transvaginal ultrasound shows possible endometrial cancer. ASSESSMENT AND PLAN: 1. Acute thrombosis, left popliteal artery recurrence. 2. Acute limb ischemia. 3. Hypertension. 4. Hyperlipidemia. 5. Metastatic cancer of unknown primary. 6. Tobacco use. PLAN: Continue anticoagulation per Hematology/Oncology. No further options for revascularizations. Her large artery have been revascularized as best as possible. However, there is significant tissue loss due to poor microcirculation. Further management per Wound Care and Podiatry. Thank you for this consult. We will continue to follow. MD LISA Cordoba/SAMIRA /[id number]
[2019-07-10] MEDS: WARFARIN SOD 5 MG TAB PO SCH (16:49)
--- NOTE | 2019-07-10 19:33 | NUR ---
Received report from previous nurse. Call light within reach. Patient in bed
[2019-07-10] MEDS: ATORVASTATIN 40 MG TAB PO SCH (20:35)
[2019-07-10 23:11] LABS: HEMATOCRIT 29.1 % (34.2-44.1); HEMOGLOBIN 9.3 g/dL (12.0-16.0)
[2019-07-10] MEDS ORDERED: SODIUM CHLORIDE 0.9% 250ML 250 ML ONE (23:41)
--- NOTE | 2019-07-10 23:50 | NUR ---
According to lab policy, after 1st unit of blood, an H&H needs to be done before the second unit of blood was going to be released. Received blood from lab and Lazaro from lab verified that patient can get the second unit of blood. The blood was verified with a second nurse. patient's vital signs are good. patient in no pain or distress. Second unit of blood was started.
[2019-07-11] VITALS (8 sets, daily range): BP systolic 108–135; BP diastolic 63–82
[2019-07-11] MEDS: NITROGLYCERIN 2% OINT 1 GM PKT TOP SCH ×4 (00:20→17:27)
[2019-07-11] MEDS: MORPHINE SULFATE INJ 4 MG/ML INJ 1ML IV PRN ×4 (01:57→20:10)
[2019-07-11] MEDS: ONDANSETRON HCL INJ 2MG/ML 2ML 2 MG/ML VIAL IV PRN ×4 (01:57→20:10)
[2019-07-11] MEDS: HYDROCODONE/APAP 5MG-325MG TAB PO PRN (05:02)
[2019-07-11 06:49] LABS: INR 2.4; PROTHROMBIN TIME 26.9 seconds (11.9-14.5)
--- NOTE | 2019-07-11 07:09 | NUR ---
GAVE REPORT TO ONCOMING NURSE. PATIENT IN BED. CALL LIGHT WITHIN REACH.
--- NOTE | 2019-07-11 08:01 | NUR ---
IM- progress note O/N no events ROS: no f/c/s/N/V/D/ARRIAGA/vision changes/cp/sob/back pian v/s; revd PE tired appearing anicteric ns1s2 mod bs soft nt nd right leg/foot normal; 2+ DP; left foot pale, cool, unable to palpate DP and PT; 5th toe with gangrene at tip; tender toe; skin dry flat affect labs/meds; revd A/P: 53yoF Ischemic left foot- heparin gtt; asa; cardio eval PAD- asa/AC; check lipids Nicotine dependence in remission Metastatic disease of liver- f/u outpt with Presumed lung cancer- bx pending outpt set up Hypokalemia- recheck Moderate anemia- check panel HTN- treat at needed Prop: ppi on AC dispo: 07/02 plan for lovenox long term at home. HLD- statin; Hyponatremia- monitor; Had catheter delivered tPA, thrombectomy planned. 07-03 s/p thrombectomy; remains on heparin gtt; pain controlled; constipation- add senna to colace; 07-04 no events; moved out of ICU; cont care. 07-05 consult podiatry. 07-06 f/u podiatry recs; cont medications; d/c planning; 07/07 blood clots passed vaginally; check U/S uterus; SPA TECHNICIAN consult for possible D&C. Pt will need to have antiplatelets/AC. rec'd 2U PRBC overnight; 07/08 f/u labs; Large vaginal clots- U/S shows Marked endometrial thickening, concerning for possible carcinoma; f/u SPA TECHNICIAN recs. AC per hematology. 07/09 SPA TECHNICIAN wants to wait for any procedures at a later date. Plans for home on coumadin. Will need inr 3.5 to 4, while trying to avoid bleeding; AVOID VITAMIN K USE. discussed with . Patient will need to see the next day after being discharged. We will continue treatment at this time and await therapeutic inr without active bleeding. 07/10 inr 2.4; check H/H; await inr 3.5 to 4. May eventually need amputation; monitor closely; 07-11 inr 2.4; meds adjustment; labs in am. Gael Logan MD, PhD.
[2019-07-11] MEDS: DOCUSATE SODIUM 100 MG CAP PO SCH ×2 (09:29→17:25)
[2019-07-11] MEDS: ASPIRIN 81 MG CHEW TAB PO SCH (09:29)
[2019-07-11] MEDS: PANTOPRAZOLE SOD 40 MG TABEC PO SCH (09:29)
[2019-07-11] MEDS: SENNOSIDES 8.6 MG TAB PO SCH ×2 (09:29→17:25)
[2019-07-11] MEDS: CLOPIDOGREL BISULFATE 75 MG TAB PO SCH (09:29)
[2019-07-11] MEDS: HYDROCODONE/APAP 7.5MG-325MG 1 EA TAB PO PRN ×2 (11:39→18:08)
[2019-07-11] MEDS: WARFARIN SOD 5 MG TAB PO SCH (17:11)
--- NOTE | 2019-07-11 19:05 | NUR ---
RECEIVED REPORT FROM PREVIOUS NURSE. CALL LIGHT WITHIN REACH. PATIENT IN BED.
[2019-07-11] MEDS: ATORVASTATIN 40 MG TAB PO SCH (20:10)
[2019-07-12] VITALS (7 sets, daily range): BP systolic 103–122; BP diastolic 57–84
[2019-07-12] MEDS: NITROGLYCERIN 2% OINT 1 GM PKT TOP SCH ×4 (00:47→18:34)
[2019-07-12] MEDS: MORPHINE SULFATE INJ 4 MG/ML INJ 1ML IV PRN ×6 (00:50→20:31)
[2019-07-12] MEDS: ONDANSETRON HCL INJ 2MG/ML 2ML 2 MG/ML VIAL IV PRN ×3 (00:50→06:25)
[2019-07-12] MEDS: HYDROCODONE/APAP 7.5MG-325MG 1 EA TAB PO PRN ×4 (03:51→18:43)
[2019-07-12 05:36] LABS: HEMATOCRIT 29.2 % (34.2-44.1); HEMOGLOBIN 9.5 g/dL (12.0-16.0)
[2019-07-12 05:47] LABS: INR 2.6; PROTHROMBIN TIME 28.6 seconds (11.9-14.5)
--- NOTE | 2019-07-12 06:58 | NUR ---
Received patient lying in bed with eyes open. Respiration even and unlabored without SOB. Call light in reach.
--- NOTE | 2019-07-12 07:19 | NUR ---
GAVE REPORT TO ONCOMING NURSE. CALL LIGHT WITHIN REACH. PATIENT IN BED
[2019-07-12] MEDS: SENNOSIDES 8.6 MG TAB PO SCH ×2 (08:29→16:41)
[2019-07-12] MEDS: DOCUSATE SODIUM 100 MG CAP PO SCH ×2 (08:29→16:40)
[2019-07-12] MEDS: ASPIRIN 81 MG CHEW TAB PO SCH (08:29)
[2019-07-12] MEDS: CLOPIDOGREL BISULFATE 75 MG TAB PO SCH (08:29)
[2019-07-12] MEDS: PANTOPRAZOLE SOD 40 MG TABEC PO SCH (08:29)
--- NOTE | 2019-07-12 13:19 | NUR ---
IM- progress note O/N no events ROS: no f/c/s/N/V/D/ARRIAGA/vision changes/cp/sob/back pian v/s; revd PE tired appearing anicteric ns1s2 mod bs soft nt nd right leg/foot normal; 2+ DP; left foot pale, cool, unable to palpate DP and PT; 5th toe with gangrene at tip; tender toe; skin dry flat affect labs/meds; revd A/P: 53yoF Ischemic left foot- heparin gtt; asa; cardio eval PAD- asa/AC; check lipids Nicotine dependence in remission Metastatic disease of liver- f/u outpt with Presumed lung cancer- bx pending outpt set up Hypokalemia- recheck Moderate anemia- check panel HTN- treat at needed Prop: ppi on AC dispo: 07/02 plan for lovenox long-term at home. HLD- statin; Hyponatremia- monitor; Had catheter delivered tPA, thrombectomy planned. 07-03 s/p thrombectomy; remains on heparin gtt; pain controlled; constipation- add senna to colace; 07-04 no events; moved out of ICU; cont care. 07-05 consult podiatry. 07-06 f/u podiatry recs; cont medications; d/c planning; 07/07 blood clots passed vaginally; check U/S uterus; SACK REPAIRER consult for possible D&C. Pt will need to have antiplatelets/AC. rec'd 2U PRBC overnight; 07/08 f/u labs; Large vaginal clots- U/S shows Marked endometrial thickening, concerning for possible carcinoma; f/u SACK REPAIRER recs. AC per hematology. 07/09 SACK REPAIRER wants to wait for any procedures at a later date. Plans for home on coumadin. Will need inr 3.5 to 4, while trying to avoid bleeding; AVOID VITAMIN K USE. discussed with . Patient will need to see the next day after being discharged. We will continue treatment at this time and await therapeutic inr without active bleeding. 07/10 inr 2.4; check H/H; await inr 3.5 to 4. May eventually need amputation; monitor closely; 07-11 inr 2.4; meds adjustment; labs in am. 07-12 inr 2.6; Hb stable; Gael O. Desmond, MD, PhD.
[2019-07-12] MEDS: LACTULOSE SYRUP 20 GM/30 ML UDC PO PRN (16:39)
[2019-07-12] MEDS: WARFARIN SOD 5 MG TAB PO SCH (16:41)
--- NOTE | 2019-07-12 19:05 | NUR ---
Report given to import coordination and production head. Respiration even and unlabored without SOB. Call light in reach.
[2019-07-12] MEDS: ATORVASTATIN 40 MG TAB PO SCH (20:33)
[2019-07-13] VITALS (9 sets, daily range): BP systolic 95–128; BP diastolic 57–84
[2019-07-13] MEDS: NITROGLYCERIN 2% OINT 1 GM PKT TOP SCH ×6 (00:01→23:40)
[2019-07-13] MEDS: MORPHINE SULFATE INJ 4 MG/ML INJ 1ML IV PRN ×6 (00:01→20:56)
[2019-07-13] MEDS: ONDANSETRON HCL INJ 2MG/ML 2ML 2 MG/ML VIAL IV PRN ×2 (00:38→18:32)
[2019-07-13] MEDS: HYDROCODONE/APAP 7.5MG-325MG 1 EA TAB PO PRN ×5 (05:50→23:27)
[2019-07-13 06:20] LABS: INR 3.17; PROTHROMBIN TIME 33.3 seconds (11.9-14.5)
--- NOTE | 2019-07-13 07:24 | NUR ---
Rcvd patient in report this am. Patient is asleep in bed at this time. No s/s of distress noted
[2019-07-13] MEDS: CLOPIDOGREL BISULFATE 75 MG TAB PO SCH (08:01)
[2019-07-13] MEDS: SENNOSIDES 8.6 MG TAB PO SCH ×2 (08:01→17:23)
[2019-07-13] MEDS: DOCUSATE SODIUM 100 MG CAP PO SCH ×2 (08:01→17:21)
[2019-07-13] MEDS: PANTOPRAZOLE SOD 40 MG TABEC PO SCH (08:01)
[2019-07-13] MEDS: ASPIRIN 81 MG CHEW TAB PO SCH (08:01)
--- NOTE | 2019-07-13 14:59 | NUR ---
Nutrition Screen Note RD Recommendation for Physician: - Continue current diet Plan of Care: RD following, monitoring for tolerance and adequacy Nutrition reason for involvement: Early LOS Primary Diagnose(s): L foot ischemia, gangrene to L toe PMH: ischemic L foot, metastatic liver disease, lung cancer, HTN, cirrhosis, PAD Ht: 67 in Wt: 177.44 lb BMI: 27.8 kg/m2 IBW: [address] Assessment: 07/13: Follow up. Pt reports continued good appetite and po intake, 100% meal intake per chart and pt drinking Ensure that she requested. Pt denies any GI distress, LBM 07/13. Pt with no questions or concerns at time of visit. Pt continues with necrotic toe to L foot. Pt discussed during am rounds, discharge planning ongoing. Labs and meds reviewed. Will monitor and continue to follow. (07/06) 67 YOF admitted for ongoing L foot ischemia with recent thrombectomy. Pt seen today for early LOS. 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 Pt denies N/V/C/D. Questionable admit wt, pt weighing 159 lb a month ago per prior admit- no wt loss noted. Pt discussed during am rounds, podiatry consult pending. Discussed vitamin K intake and coumadin diet education reviewed at time of visit, pt declined additional diet education- states she still has handout provided by RD at prior admit. All questions and concerns addressed at time of visit. Chart reviewed. Labs and meds reviewed. Current Diet: Low Na Malnutrition Evaluation (07/06/19) The patient does not meet criteria for a specified degree of malnutrition at this time. Will re-evaluate at follow-up as appropriate. Diet Education Needs Assessment: Diet education indicated, pt receptive. Learner(s): pt Barriers: none Cultural/Language Modifications: none Readiness: eager Method: discussion Topics: Vitamin K sources and recommended intake Understanding/Compliance: good Diet tolerance: tolerating po Nutrition Care Level: Low Signed: Marcia Olmedo RD, LD, [facility]
[2019-07-13] MEDS: WARFARIN SOD 5 MG TAB PO SCH (17:24)
--- NOTE | 2019-07-13 18:01 | Progress Note ---
DATE: 07/13/2019 Cardiology Progress Note SUBJECTIVE: The patient feels overall well. Reports mild swelling in the left foot with mild pain, however, has improved. OBJECTIVE: VITAL SIGNS: Temperature is 97.3, heart rate is 75, respirations are 18, blood pressure is 116/58, oxygen saturation 97% on room air. GENERAL: Well appearing, well built, no apparent distress. CARDIOVASCULAR: Regular rate and rhythm. No murmurs. LUNGS: Clear to auscultation. No rales. ABDOMEN: Soft, nontender, nondistended. EXTREMITIES: Left foot is warm, red, mildly edematous with diminished pulses. Gangrene over multiple digits. MEDICATIONS: Cardiovascular medications reviewed. LABORATORY DATA: Reviewed. Hemoglobin 9.5. Creatinine 0.5. INR is 3.17. IMPRESSION: 1. Acute thrombosis of left lower extremity, status post intervention. 2. Peripheral artery disease. 3. Hypertension. 4. Hyperlipidemia. 5. Metastatic cancer. 6. Tobacco use. RECOMMENDATIONS: Continue current antiplatelet and anticoagulation medications. Her large vessels have been revascularized with poor microvasculature. Continue wound care and podiatry care. Ck Brownlee DO BM/MODL /[id number]
[2019-07-13] MEDS: ATORVASTATIN 40 MG TAB PO SCH (20:56)
--- NOTE | 2019-07-13 23:30 | NUR ---
IM- progress note O/N no events ROS: no f/c/s/N/V/D/ARRIAGA/vision changes/cp/sob/back pian v/s; revd PE tired appearing anicteric ns1s2 mod bs soft nt nd right leg/foot normal; 2+ DP; left foot pale, cool, unable to palpate DP and PT; 5th toe with gangrene at tip; tender toe; skin dry flat affect labs/meds; revd A/P: 53yoF Ischemic left foot- heparin gtt; asa; cardio eval PAD- asa/AC; check lipids Nicotine dependence in remission Metastatic disease of liver- f/u outpt with Presumed lung cancer- bx pending outpt set up Hypokalemia- recheck Moderate anemia- check panel HTN- treat at needed Prop: ppi on AC dispo: 07/02 plan for lovenox snf at home. HLD- statin; Hyponatremia- monitor; Had catheter delivered tPA, thrombectomy planned. 07-03 s/p thrombectomy; remains on heparin gtt; pain controlled; constipation- add senna to colace; 07-04 no events; moved out of ICU; cont care. 07-05 consult podiatry. 07-06 f/u podiatry recs; cont medications; d/c planning; 07/07 blood clots passed vaginally; check U/S uterus; BAIT DIGGER consult for possible D&C. Pt will need to have antiplatelets/AC. rec'd 2U PRBC overnight; 07/08 f/u labs; Large vaginal clots- U/S shows Marked endometrial thickening, concerning for possible carcinoma; f/u BAIT DIGGER recs. AC per hematology. 07/09 BAIT DIGGER wants to wait for any procedures at a later date. Plans for home on coumadin. Will need inr 3.5 to 4, while trying to avoid bleeding; AVOID VITAMIN K USE. discussed with . Patient will need to see the next day after being discharged. We will continue treatment at this time and await therapeutic inr without active bleeding. 07/10 inr 2.4; check H/H; await inr 3.5 to 4. May eventually need amputation; monitor closely; 07-11 inr 2.4; meds adjustment; labs in am. 07-12 inr 2.6; Hb stable; 09/12 inr 3.17; check inr and H/H in am Gael Logan MD, PhD.
[2019-07-14] MEDS: MORPHINE SULFATE INJ 4 MG/ML INJ 1ML IV PRN ×3 (01:06→09:54)
[2019-07-14] MEDS: HYDROCODONE/APAP 7.5MG-325MG 1 EA TAB PO PRN ×3 (03:27→13:11)
[2019-07-14 04:51] VITALS: BP 107/75
[2019-07-14 05:20] LABS: HEMATOCRIT 29.6 % (34.2-44.1); HEMOGLOBIN 9.5 g/dL (12.0-16.0)
[2019-07-14 05:36] LABS: INR 3.5; PROTHROMBIN TIME 35.9 seconds (11.9-14.5)
[2019-07-14] MEDS ORDERED: COUMADIN5 MG PO (05:48)
[2019-07-14] MEDS ORDERED: Atorvastatin PO (05:48)
[2019-07-14] MEDS ORDERED: PROTONIX40 MG/ML PO (05:48)
[2019-07-14 07:32] VITALS: BP 106/72
[2019-07-14] MEDS: DOCUSATE SODIUM 100 MG CAP PO SCH ×2 (07:56→16:33)
[2019-07-14] MEDS: ASPIRIN 81 MG CHEW TAB PO SCH (07:56)
[2019-07-14] MEDS: PANTOPRAZOLE SOD 40 MG TABEC PO SCH (07:56)
[2019-07-14] MEDS: SENNOSIDES 8.6 MG TAB PO SCH ×2 (07:56→16:33)
[2019-07-14] MEDS: CLOPIDOGREL BISULFATE 75 MG TAB PO SCH (07:56)
[2019-07-14 11:35] VITALS: BP 107/73
[2019-07-14] MEDS: NITROGLYCERIN 2% OINT 1 GM PKT TOP SCH (12:19)
[2019-07-14 15:26] VITALS: BP 120/71
[2019-07-14] MEDS: WARFARIN SOD 5 MG TAB PO SCH (16:33)
--- NOTE | 2019-07-16 11:24 | NUR ---
D/C summary Principal Dx: Ischemic left foot- heparin gtt; asa; cardio eval PAD- asa/AC; check lipids Nicotine dependence in remission Metastatic disease of liver- f/u outpt with Presumed lung cancer- bx pending outpt set up Hypokalemia- recheck Moderate anemia- check panel Vaginal bleeding Hyponatremia Secondary Dx HTN- treat at needed Prop: ppi on AC dispo: 07/02 plan for lovenox detention at home. HLD- statin; Hyponatremia- monitor; Had catheter delivered tPA, thrombectomy planned. 07-03 s/p thrombectomy; remains on heparin gtt; pain controlled; constipation- add senna to colace; 07-04 no events; moved out of ICU; cont care. 07-05 consult podiatry. 07-06 f/u podiatry recs; cont medications; d/c planning; 07/07 blood clots passed vaginally; check U/S uterus; ASSISTANT PROFESSOR OF BUSINESS consult for possible D&C. Pt will need to have antiplatelets/AC. rec'd 2U PRBC overnight; 07/08 f/u labs; Large vaginal clots- U/S shows Marked endometrial thickening, concerning for possible carcinoma; f/u ASSISTANT PROFESSOR OF BUSINESS recs. AC per hematology. 07/09 ASSISTANT PROFESSOR OF BUSINESS wants to wait for any procedures at a later date. Plans for home on coumadin. Will need inr 3.5 to 4, while trying to avoid bleeding; AVOID VITAMIN K USE. discussed with . Patient will need to see the next day after being discharged. We will continue treatment at this time and await therapeutic inr without active bleeding. 07/10 inr 2.4; check H/H; await inr 3.5 to 4. May eventually need amputation; monitor closely; 07-11 inr 2.4; meds adjustment; labs in am. 07-12 inr 2.6; Hb stable; 09/12 inr 3.17; check inr and H/H in am d/c home f/u pcp 1 week and cardiology 1 week and hematology 1 week and 3 days stable d/c>35mins Gael Logan MD, PhD.
[2019-07-22] MEDS ORDERED: ASPIR-LOW81 MG PO (19:05)
--- NOTE | 2019-07-26 12:55 | Operative Report ---
DATE OF PROCEDURE: 07/02/2019 SURGEON: Hilario Bateman MD INDICATION FOR PROCEDURE: Acute limb ischemia. PREPROCEDURE ASSESSMENT: Risks, benefits, and alternatives to treatment were explained to the patient prior to the procedure. The patient was deemed to be an appropriate candidate for moderate sedation. PROCEDURES PERFORMED: 1. Primary thrombectomy, left popliteal and anterior tibial arteries. 2. Peripheral angiography. 3. Vascular closure device. PROCEDURE DETAILS: The patient was brought to the cardiac catheterization laboratory for staged intervention post placement of Ellne catheter day before. We wired the Ellen catheter using 0.035 [place] Advantage wire the catheter was removed and verbal angiography was performed using the sheath placed previously with demonstrated improvement in flow compared to the prior study, however, still there was significant residual thrombus in the left popliteal artery, decided to proceed with aspiration using a Pronto, multiple passes were performed which revealed improvement in flow with no residual thrombus. The distal flow into the foot was poor, despite patent macro arteries likely due to embolization into the microcirculation given recurrent episodes of thrombosis of left popliteal artery. No vascular intervention to be performed to improve this, hopefully this will improve with time and anticoagulation. All catheters and wires were removed. Intra-arterial nitroglycerin was injected and finally the up-and-over sheath was removed over a wire and vascular closure device was applied. The patient tolerated the procedure well. There were no immediate complications. GRAFTS AND IMPLANTS: None. SPECIMEN REMOVED: None. ESTIMATED BLOOD LOSS: 20 mL. COMPLICATIONS: None. FINAL RECOMMENDATIONS: 1. Continue anticoagulation. 2. Optimal medical therapy and risk factor control. 3. Wound care per Podiatry and primary team. Hilario Bateman MD KVP/MODL /[id number]
--- NOTE | 2019-07-30 17:21 | Consultation ---
DATE OF CONSULTATION: 07/02/2019 HISTORY OF PRESENT ILLNESS: Mellisa Sullivan is a 53-year-old female with history of left leg ischemic thrombus in the past, history of liver metastases, and history of lung metastases. SOCIAL HISTORY: History of smoking in the past. FAMILY HISTORY: Noncontributory. ALLERGIES: REPORTED PENICILLIN. MEDICATIONS: At this time: 1. Dextrose. 2. Ondansetron. 3. Protonix. 4. Tylenol with hydrocodone. 5. Hydromorphone. 6. Atorvastatin. 7. Nitroglycerin. 8. Coumadin. REVIEW OF SYSTEMS: HEENT: Normal. CARDIAC: History of hyperlipidemia. RESPIRATORY: Massive lung metastases. GI: Massive liver metastases. : History of vaginal bleed. MUSCULOSKELETAL: History of left lower extremity arterial thrombus four times, rescued after thrombectomy. PHYSICAL EXAMINATION: GENERAL: A moderately built female, anemic. NECK: No palpable adenopathy. HEART: Within normal limits. LUNGS: Clear. ABDOMEN: Obese. Liver is felt 6 inches down the costal margin, hard in consistency. RECTAL: Deferred. VAGINA: Deferred. CENTRAL NERVOUS: Essentially normal. EXTREMITIES: Gangrene of the left lower extremity from the fifth toe and second toe. Very poor dorsalis pedis on the left side. LABORATORY DATA: Hemoglobin 9.3, hematocrit 30.2, white count 12,700, and platelets 454,000. INR 1.65, bilirubin 0.6, SGOT 76, SGPT 38, alkaline phosphatase 367, BUN 7, and creatinine 0.56. IMPRESSION: 1. 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 2. Lung metastases. 3. Liver metastases. 4. Possible endometrial cancer. 5. Anemia of chronic disease and blood loss. PLAN, COMMENTS, AND SUGGESTIONS: Suggest heparin and Coumadin. The patient has not accepted that she has far advanced cancer and she has also not accepted that the liver biopsy can never be done when the INR went down to 1.65, the patient had clotted off, a biopsy would require the patient to have a normal INR, which is not possible. I have discussed at length that the patient needs to be a no code, however, she still insists that she wants to be a full code. Prognosis remains extremely poor. I have not been able to convince that the patient is terminally ill. She will be discharged on Coumadin, aspirin, and Plavix. Keeping the INR between 3.5 to 4 will be very difficult as: 1. She has massive liver metastases, which makes her more susceptible to have a high INR. 2. If the INR is kept between 2 and 3, she will clot off. She has been a failure on Xarelto. She has been a failure on Eliquis. Prognosis remains extremely poor. I have suggested a second opinion, however, because of, I guess, lack of insurance, she does not want to go any place, however, has not accepted that she is terminally ill and I have not even spoken to the family. MD KENDRA Lara/SAMIRA /[id number]
== END 2019-07-14 16:44 | disposition home or self-care (01) | DRG 271 ==
LOC: ER 07:59 → ERHOLD 09:02 → MED/SURG3 12:26 → ICU 18:17 → MED/SURG 07-04 20:55
PROVIDERS: ADMIT Internal Medicine; ATTEND Internal Medicine
PROC: B41D1ZZ Fluoroscopy of Aorta and Bilateral Lower Extremity Arteries using Low Osmolar Contrast (ICD-10-PCS; 2019-07-01)
PROC: 3E05317 Introduction of Other Thrombolytic into Peripheral Artery, Percutaneous Approach (ICD-10-PCS; 2019-07-01)
PROC: 04HL33Z Insertion of Infusion Device into Left Femoral Artery, Percutaneous Approach (ICD-10-PCS; 2019-07-01)
PROC: 04CN3ZZ Extirpation of Matter from Left Popliteal Artery, Percutaneous Approach (ICD-10-PCS; principal; 2019-07-02)
PROC: 04CQ3ZZ Extirpation of Matter from Left Anterior Tibial Artery, Percutaneous Approach (ICD-10-PCS; 2019-07-02)
PROC: B41G1ZZ Fluoroscopy of Left Lower Extremity Arteries using Low Osmolar Contrast (ICD-10-PCS; 2019-07-02)
PROC: 30233N1 Transfusion of Nonautologous Red Blood Cells into Peripheral Vein, Percutaneous Approach (ICD-10-PCS; 2019-07-06)
DX: I74.3 Embolism and thrombosis of arteries of the lower extremities (principal); I96 Gangrene, not elsewhere classified; C34.92 Malignant neoplasm of unspecified part of left bronchus or lung; C34.91 Malignant neoplasm of unspecified part of right bronchus or lung; C78.7 Secondary malignant neoplasm of liver and intrahepatic bile duct; E87.1 Hypo-osmolality and hyponatremia; I10 Essential (primary) hypertension; E78.5 Hyperlipidemia, unspecified; I49.3 Ventricular premature depolarization; E87.6 Hypokalemia; I25.10 Atherosclerotic heart disease of native coronary artery without angina pectoris; K74.60 Unspecified cirrhosis of liver; D64.9 Anemia, unspecified; R33.9 Retention of urine, unspecified; K59.00 Constipation, unspecified; N95.0 Postmenopausal bleeding; Z88.0 Allergy status to penicillin; Z79.01 Long term (current) use of anticoagulants; Z79.02 Long term (current) use of antithrombotics/antiplatelets; Z79.82 Long term (current) use of aspirin; Z28.21 Immunization not carried out because of patient refusal; Z87.891 Personal history of nicotine dependence
CPT/HCPCS: 36247; 36415; 37211; 37214; 71045; 75625; 75710; 76830; 80048; 80053; 80061; 82550; 82553; 83036; 84484; 85014; 85018; 85025; 85610; 85730; 86850; 86900; 86920; 93005; 93926; 96376; 97139; 99152; 99153; 99284; C1757; C1760; C1769; C1887; J1170; J1200; J1644; J2001; J2250; J2270; J2405; J2930; J2997; J3010; J7030; J7050; P9016; Q9967

== ENCOUNTER 2019-07-22 15:41 | Observation (INO) | payer SELFPAY ==
[~2019-07-22] VITALS: Ht 170.2 cm; Wt 65.8 kg
[~2019-07-22 15:41] MED LIST changes: +Atorvastatin PO; +COUMADIN5 MG PO; +PROTONIX40 MG/ML PO; +SENNA LAX8.6 MG PO
[2019-07-22] MEDS ORDERED: PHYTONADIONE 10 MG/ML AMP IM ONE (16:57)
[2019-07-22] MEDS ORDERED: HYDROCODONE/APAP 5MG-325MG TAB PO ONE (17:00)
[2019-07-22 17:25] LABS: INR 6.87; PROTHROMBIN TIME 60.3 seconds (11.9-14.5)
[2019-07-22] MEDS ORDERED: ONDANSETRON HCL 4 MG ORAL DISINTEGRATING TAB PO ONE (17:30)
[2019-07-22 17:46] LABS: HEMATOCRIT 26.2 % (34.2-44.1); HEMOGLOBIN 8.3 g/dL (12.0-16.0); RED BLOOD COUNT 3.09 x10e6/uL (3.6-5.1)
[2019-07-22 17:47] LABS: EOSINOPHILS % 0.4 % (0.0-6.0); MEAN CORPUSCULAR HEMOGLOBIN 26.9 pg (28-32); MEAN CORPUSCULAR HGB CONC 31.7 g/dL (31-35); MEAN CORPUSCULAR VOLUME 84.8 fL (81-99); NEUTROPHILS % 16.1 % (38.7-80.0); PLATELET COUNT 834 x10e3/uL (140-360); RED CELL DISTRIBUTION WIDTH 18.6 % (11.7-14.4)
[2019-07-22 17:50] LABS: ANION GAP 17.8 mmol/L (8-16); BLOOD UREA NITROGEN 8 mg/dL (7-26); BUN/CREATININE RATIO 15 (6-25); CARBON DIOXIDE 27 mmol/L (22-29); CHLORIDE 89 mmol/L (98-107); CREATININE, SERUM 0.55 mg/dL (0.57-1.11); EST GLOMERULAR FILTRATION RATE > 60 ML/MIN (60-); POTASSIUM 2.8 mmol/L (3.5-5.1); SODIUM 131 mmol/L (136-145)
[2019-07-22 17:51] LABS: ALANINE AMINOTRANSFERASE 46 IU/L (0-55); ALBUMIN 2.1 g/dL (3.5-5.0); ALBUMIN/GLOBULIN RATIO 0.4 (0.8-2.0); ALKALINE PHOSPHATASE 456 IU/L (40-150); CALCIUM 8.9 mg/dL (8.4-10.2); GLUCOSE 109 mg/dL (74-118)
[2019-07-22 17:52] LABS: CREATINE KINASE 128 IU/L (29-168)
[2019-07-22] MEDS ORDERED: SODIUM CHLORIDE 0.9% 250ML 250 ML IV ONE (18:30)
--- NOTE | 2019-07-22 18:51 | NUR ---
CONSENT FOR BLOOD TRANSFUSION SIGNED AND PLACED INTO CHART.
[2019-07-22] MEDS ORDERED: CLOPIDOGREL75 MG PO (19:05)
[2019-07-22] MEDS ORDERED: ASPIR-LOW81 MG PEG (19:05)
[2019-07-22] MEDS ORDERED: POTASSIUM CHLORIDE 20 MEQ TAB CR PO ONE ×2 (19:10→23:00)
--- NOTE | 2019-07-22 19:30 | NUR ---
pt refused vitamin k injection. pt aware of risk of refusing vitamin k. pt states that "inr drops quickly and i will throw clots." dr weiss informed.
[2019-07-22] MEDS ORDERED: KCL 20MEQ/.9 SOD CHL 1,000 ML IV ONE (20:00)
[2019-07-22] MEDS ORDERED: ONDANSETRON HCL INJ 2MG/ML 2ML 2 MG/ML VIAL IV PRN (20:00)
[2019-07-22] MEDS: HYDROCODONE/APAP 5MG-325MG TAB PO PRN (21:04)
[2019-07-22 22:25] VITALS: BP 120/77
[2019-07-22 23:01] VITALS: BP 113/71
[2019-07-22] MEDS ORDERED: SODIUM CHLORIDE 0.9% 250ML 500 ML ONE (23:27)
[2019-07-23] MEDS: HYDROCODONE/APAP 5MG-325MG TAB PO PRN ×4 (01:05→14:02)
[2019-07-23 04:00] VITALS: BP 106/79
--- NOTE | 2019-07-23 07:55 | NUR ---
TELEPHONED MD MATTHEW'S OFFICE TO CLARIFY DIET ORDER, AWAITING CALL BACK
[2019-07-23 08:44] VITALS: BP 118/81
--- NOTE | 2019-07-23 09:08 | NUR ---
SPOKE WITH MD MATTHEW, ORDERS NOTED FOR DIET AND LAB
[2019-07-23 09:37] LABS: BASOPHILS % 0.2 % (0.0-1.0); EOSINOPHILS # (AUTO) 0.5 (0.0-0.4); EOSINOPHILS % 3.1 % (0.0-6.0); HEMATOCRIT 31.6 % (34.2-44.1); HEMOGLOBIN 10.4 g/dL (12.0-16.0); LYMPHOCYTES # (AUTO) 1.5 (1.0-3.2); LYMPHOCYTES % 9.3 % (18.0-39.1); MEAN CORPUSCULAR HEMOGLOBIN 27.7 pg (28-32); MEAN CORPUSCULAR HGB CONC 32.9 g/dL (31-35); MEAN CORPUSCULAR VOLUME 84.3 fL (81-99); MONOCYTES # (AUTO) 0.9 (0.2-0.8); MONOCYTES % 5.7 % (4.4-11.3); NEUTROPHILS % 81.1 % (38.7-80.0); PLATELET COUNT 624 x10e3/uL (140-360); RED BLOOD COUNT 3.75 x10e6/uL (3.6-5.1); RED CELL DISTRIBUTION WIDTH 16.5 % (11.7-14.4)
[2019-07-23 09:55] LABS: ALANINE AMINOTRANSFERASE 37 IU/L (0-55); ALBUMIN 1.8 g/dL (3.5-5.0); ALBUMIN/GLOBULIN RATIO 0.4 (0.8-2.0); ALKALINE PHOSPHATASE 416 IU/L (40-150); ANION GAP 13.1 mmol/L (8-16); BLOOD UREA NITROGEN 7 mg/dL (7-26); BUN/CREATININE RATIO 16 (6-25); CALCIUM 8.3 mg/dL (8.4-10.2); CARBON DIOXIDE 25 mmol/L (22-29); CHLORIDE 98 mmol/L (98-107); CREATININE, SERUM 0.45 mg/dL (0.57-1.11); EST GLOMERULAR FILTRATION RATE > 60 ML/MIN (60-); GLUCOSE 107 mg/dL (74-118); POTASSIUM 4.1 mmol/L (3.5-5.1); SODIUM 132 mmol/L (136-145)
[2019-07-23 10:03] VITALS: BP 118/81
[2019-07-23 10:04] LABS: INR 4.63
[2019-07-23 10:06] LABS: PROTHROMBIN TIME 44.5 seconds (11.9-14.5)
--- NOTE | 2019-07-23 11:32 | NUR ---
TELEPHONED MD MATTHEW TO CLARIFY IF OKAY TO START HOME MEDICATIONS PER PT REQUEST, OFFICE STATES "HE IS ROUNDING", WILL NOTIFY PT
--- NOTE | 2019-07-23 11:33 | NUR ---
PT TOLERATING PO INTAKE AT THIS TIME, REPORTS ONE STOOL ,GREEN IN COLOR THIS AM
[2019-07-23 12:38] VITALS: BP 117/82
--- NOTE | 2019-07-23 14:09 | NUR ---
OBS, spoke with CHANNING sampson who states patient to dc when md rounds.
[2019-07-23] MEDS ORDERED: ASPIRIN 81 MG CHEW TAB PEG SCH (14:15)
[2019-07-23] MEDS ORDERED: CLOPIDOGREL BISULFATE 75 MG TAB PO SCH (14:15)
--- NOTE | 2019-07-23 14:24 | NUR ---
SPOKE WITH DR MATTHEW, ORDERS NOTED
[2019-07-23 16:00] VITALS: BP 120/60
[2019-07-23] MEDS ORDERED: WARFARIN SODIUM5 MG PO (17:17)
--- NOTE | 2019-07-23 22:57 | History and Physical ---
HISTORY OF PRESENT ILLNESS: This is a 53-year-old female admitted with an INR of 16, vaginal and rectal bleed. HISTORY OF PAST ILLNESS: History of metastases to the liver, history of lung metastases, history of endometrial thickening. SOCIAL HISTORY: Noncontributory. FAMILY HISTORY: Noncontributory. ALLERGIES: REPORTED NONE. MEDICATIONS: Please review the EMR. REVIEW OF SYSTEMS: HEENT: Normal. CARDIAC: Normal. RESPIRATORY: Massive lung metastases. GI: Massive liver metastases. : Endometrial thickening. MUSCULOSKELETAL: History of arterial thrombi of left lower extremity x4 admissions with intervention done by Dr. Bateman, the panel cutter and the patient has been on Plavix, aspirin, and Coumadin, non-vitamin K anticoagulant had failed, which had caused the patient to come in the hospital multiple times. PHYSICAL EXAMINATION: GENERAL: Remarkable female, very anemic. NECK: No palpable adenopathy. HEART: Within normal limits. LUNGS: Clear. ABDOMEN: Obese. Questionable ascites is felt. Liver is felt 2 inches on the costal margin. RECTAL: Deferred. VAGINAL: Deferred. CENTRAL NERVOUS SYSTEM: Essentially normal. IMPRESSION: 1. Coagulopathy acquired because of Coumadin therapy. 2. Peripheral arterial disease with gangrene of middle and 5th toe of the left lower extremity. 3. History of multiple thrombi of left lower extremity 4 times on admission. 4. Liver metastases. 5. Lung metastases. 6. Ascites. 7. Cirrhosis of liver. 8. Anemia, blood loss. PLAN: Plan is to give her vitamin K 2.5 mg subcu b.i.d., to continue Plavix and aspirin, to reduce the Coumadin, monitor the INR. The patient will get blood transfusion. Prognosis remains poor. MD KENDRA Lara/MODL /[id number]
--- NOTE | 2019-07-23 23:02 | History and Physical ---
HISTORY OF PRESENT ILLNESS: Mellisa Sullivan is a 53-year-old white female was followed up at my office for an INR of 9 as the patient was suggested not to take any Coumadin. Multiple discussions were carried out with her as well as the daughter who accompanied her that if I tried to neutralize it the patient will clot off her left lower extremity as she had clotted four times even with INR of 1.65, and if I try to keep her on the same dose of Coumadin 5 mg a day that she may bleed. She already had bled from the rectum as well as through the vagina. Subsequently I had advised her to have a high INR at my office daily. The INR was done yesterday. This was reported at 16. Subsequently, I suggested her to come to the ER. The patient had called Dr. Perez at length regarding her problem not to give her any fresh frozen plasma, not to give her any vitamin K IV, only to give her 2.5 mg subcu of vitamin K. Subsequently, her INR dropped to 6.87. The INR on 07/23 is 4.63. The patient's chemistry showed a sodium of 131, potassium 2.8, chloride 89, CO2 27, BUN 8, and creatinine 0.55. Alkaline phosphatase high at 456. Total protein 7.1, albumin 2.1, globulin is high at 5.0 with potassium supplement the potassium today is 4.1, and the patient was also given blood transfusion for hemoglobin of 8.3. Hemoglobin today is 10.4, platelets of 624,000 and a white count 84238. The white count was 19,600 on day one, subsequently being discharged at the present time on Coumadin 5 mg for four days a week, Plavix 75 mg a day, aspirin 81 mg a day. I have explained to her this may still keep the INR high. 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 I have also explained to her and the daughter that I will never be able to do a biopsy of the liver to confirm the diagnosis of massive metastases to the liver. At the moment, I dropped the INR to less than 1.5 for the interventional radiologist to do the biopsy. The patient will clot off as she had clotted off with an INR of 1.65. Prognosis remains extremely poor. The possibility of prognosis and the survival was raised by the daughter. However, she did not want to know and she did not want me to disclose it to the daughter. This was a fairly emotional, more than half an hour conference in my office on . The patient will see me again on Friday for a PT/INR as outpatient. Prognosis remains extremely poor. IMPRESSION: 1. Lung metastases. 2. Liver metastases. 3. Cirrhosis of liver. 4. High CEA of more than 800 denoting as the patient has an epithelial malignancy. 5. History of vaginal bleed with an abnormal thickening of the endometrium. No biopsy could be done. Rectal bleed, possibly because of the high INR. Prognosis remains extremely poor. This is a terminal disease. Thank you end dictation. MD KENDRA Lara/SAMIRA /[id number]
== END 2019-07-23 17:31 | disposition home or self-care (01) ==
LOC: ER 15:41 → ERHOLD 22:57 → MED/SURG 23:12
PROVIDERS: ADMIT Internal Medicine Medical Oncology; ATTEND Internal Medicine Medical Oncology
DX: D50.0 Iron deficiency anemia secondary to blood loss (chronic) (principal); T45.515A Adverse effect of anticoagulants, initial encounter; Z87.891 Personal history of nicotine dependence; Z82.49 Family history of ischemic heart disease and other diseases of the circulatory system; E87.6 Hypokalemia; C34.90 Malignant neoplasm of unspecified part of unspecified bronchus or lung; C78.7 Secondary malignant neoplasm of liver and intrahepatic bile duct; K74.60 Unspecified cirrhosis of liver; N93.9 Abnormal uterine and vaginal bleeding, unspecified; I73.9 Peripheral vascular disease, unspecified; Z86.718 Personal history of other venous thrombosis and embolism; Z79.01 Long term (current) use of anticoagulants; R18.8 Other ascites; Z88.0 Allergy status to penicillin
CPT/HCPCS: 36415 ×2; 36430; 80053 ×2; 82550; 82553; 84484; 85025 ×2; 85610 ×2; 85730; 86850; 86900; 86920; 99284; G0378 ×2; J3430; J7050; P9016 ×2; Q0162

== ENCOUNTER 2019-07-28 08:08 | Inpatient (IN) | payer SELFPAY ==
[~2019-07-28] VITALS: Ht 170.2 cm; Wt 65.8 kg
[~2019-07-28 08:08] MED LIST changes: +ASPIR-LOW81 MG PO; +WARFARIN SODIUM5 MG PO
[2019-07-28] MEDS ORDERED: SODIUM CHLORIDE 0.9% 1000ML 500 ML IV STA (08:09)
[2019-07-28] MEDS ORDERED: SODIUM CHLORIDE 0.9% 1000ML 1,000 ML IV STA (08:09)
[2019-07-28] MEDS ORDERED: SODIUM CHLORIDE 0.9% 250ML 250 ML IV ONE (08:15)
[2019-07-28] MEDS ORDERED: DIPHENHYDRAMINE HCL INJ 50 MG/ML VIAL IV PRN (08:45)
[2019-07-28] MEDS ORDERED: PANTOPRAZOLE 40 MG 10ML VIAL IV ONE (08:45)
[2019-07-28] MEDS ORDERED: ACETAMINOPHEN 325 MG TAB PO PRN (08:45)
[2019-07-28] MEDS ORDERED: ONDANSETRON HCL INJ 2MG/ML 2ML 2 MG/ML VIAL IV ONE (08:45)
[2019-07-28] MEDS ORDERED: PHYTONADIONE 10 MG/ML AMP SQ ONE (08:45)
[2019-07-28] MEDS ORDERED: PANTOPRAZOL 40MG/SOD CHL 0.9% 50 ML IV SCH (09:00)
[2019-07-28] MEDS ORDERED: FENTANYL CITRATE/PF 100MCG/2 ML INJ IV ONE (09:00)
[2019-07-28 09:04] LABS: BASOPHILS % 0.1 % (0.0-1.0); EOSINOPHILS % 0.2 % (0.0-6.0); LYMPHOCYTES # (AUTO) 1.9 (1.0-3.2); LYMPHOCYTES % 15.4 % (18.0-39.1); MEAN CORPUSCULAR HEMOGLOBIN 27.1 pg (28-32); MEAN CORPUSCULAR HGB CONC 31.3 g/dL (31-35); MEAN CORPUSCULAR VOLUME 86.7 fL (81-99); MONOCYTES % 7.7 % (4.4-11.3); NEUTROPHILS # (AUTO) 9.3 (2.1-6.9); PLATELET COUNT 455 x10e3/uL (140-360); RED BLOOD COUNT 1.88 x10e6/uL (3.6-5.1); RED CELL DISTRIBUTION WIDTH 18.2 % (11.7-14.4)
[2019-07-28] MEDS ORDERED: PROTONIX 200MG/SODIUM CHLORIDE 0.9% 250 ML BAG IV SCH (09:15)
[2019-07-28] MEDS ORDERED: MORPHINE SULFATE INJ 4 MG/ML INJ 1ML IV PRN (09:15)
[2019-07-28 09:28] LABS: BILIRUBIN,URINE NEGATIVE (NEGATIVE); CLARITY,URINE TURBID (CLEAR); COLOR,URINE YELLOW (YELLOW); KETONES,URINE NEGATIVE (NEGATIVE); LEUKOCYTE ESTERASE ,URINE NEGATIVE (NEGATIVE); NITRITE,URINE NEGATIVE (NEGATIVE); PROTEIN,URINE DIPSTICK NEGATIVE (NEGATIVE); URINE UROBILINOGEN 1 mg/dL (0.2 - 1)
[2019-07-28 09:29] LABS: HEMATOCRIT 16.3 % (34.2-44.1); HEMOGLOBIN 5.1 g/dL (12.0-16.0)
[2019-07-28 09:46] LABS: ALANINE AMINOTRANSFERASE 53 IU/L (0-55); ALBUMIN 1.6 g/dL (3.5-5.0); ALBUMIN/GLOBULIN RATIO 0.5 (0.8-2.0); ALKALINE PHOSPHATASE 337 IU/L (40-150); ANION GAP 21.7 mmol/L (8-16); BLOOD UREA NITROGEN 15 mg/dL (7-26); BUN/CREATININE RATIO 25 (6-25); CARBON DIOXIDE 17 mmol/L (22-29); CHLORIDE 94 mmol/L (98-107); CREATINE KINASE 349 IU/L (29-168); CREATININE, SERUM 0.59 mg/dL (0.57-1.11); EST GLOMERULAR FILTRATION RATE > 60 ML/MIN (60-); GLUCOSE 157 mg/dL (74-118); POTASSIUM 4.7 mmol/L (3.5-5.1); SODIUM 128 mmol/L (136-145)
[2019-07-28] MEDS ORDERED: PHYTONADIONE 10 MG/ML AMP SC ONE (09:55)
[2019-07-28 09:59] LABS: AMORPHOUS SEDIMENT,URINE MANY (FEW); WBC,URINE (MAN) 0-5 /HPF (0-5)
[2019-07-28 10:00] LABS: EPITHELIAL CELLS,URINE FEW /LPF
[2019-07-28 10:01] LABS: BACTERIA,URINE FEW /HPF
[2019-07-28 10:04] LABS: LIPASE 13 U/L (8-78); PROTHROMBIN TIME > 100.0 seconds (11.9-14.5)
[2019-07-28 10:05] LABS: INR 14.24
--- NOTE | 2019-07-28 10:34 | Diagnostic Imaging Report ---
Chest, 1 view, 07/28/2019. History: Vaginal bleeding, abdominal pain. Central line placement. Comparison: 07/01/2019. Findings: The cardiomediastinal silhouette and pulmonary vasculature are within normal limits for a portable exam. There is no focal consolidation or pleural effusion. There is no evidence of a pneumothorax. No central line is visualized. There are no acute osseous or soft tissue abnormalities. Impression: No acute cardiopulmonary abnormality. Signed by: Crispin Felix on 07/28/2019 10:31 AM
[2019-07-28 11:15] VITALS: BP 127/79
--- NOTE | 2019-07-28 11:15 | NUR ---
RECEIVED PATIENT FROM ER TO ROOM 288. DAUGHTER AT BEDSIDE. PATIENT AND DAUGHTER ORIENTED TO ROOM AND POLICIES. ADMISSION HISTORY AND PHYSICAL ASSESSMENT COMPLETED AND DOCUMENTED. CALL LIGHT WITHIN REACH. BED IN THE LOWEST POSITION.
[2019-07-28] MEDS ORDERED: FAMOTIDINE20 MG PO (11:27)
[2019-07-28 11:45] VITALS: BP 127/79
[2019-07-28] MEDS: HYDROCODONE/APAP 7.5MG-325MG 1 EA TAB PO PRN ×2 (12:06→16:40)
[2019-07-28] MEDS: SODIUM CHLORIDE 0.9% 1000ML 1,000 ML IV SCH (12:10)
[2019-07-28] MEDS: CEFEPIME 1GM/NS 0.9% 50 ML 50 ML IV SCH ×2 (12:21→22:00)
[2019-07-28] MEDS ORDERED: SODIUM CHLORIDE 0.9% 250ML 250 ML ONE ×2 (12:47→15:57)
[2019-07-28] MEDS: PANTOPRAZOL 40MG/SOD CHL 0.9% 50 ML IV SCH ×3 (12:55→23:01)
[2019-07-28 13:06] LABS: PROTHROMBIN TIME 94.3 seconds (11.9-14.5)
[2019-07-28 13:07] LABS: INR 12.28
--- NOTE | 2019-07-28 13:15 | NUR ---
1ST UNIT OF PRBC STARTED AT 1300, NO S/S OF ADVERSE REACTION NOTED. WILL CONTINUE TO MONITOR.
--- NOTE | 2019-07-28 13:20 | NUR ---
NOTIFIED DR. MATTHEW OF PT 94.3 AND INR 12.28. PER MD PATIENT CONTINUE TO MONITOR.
[2019-07-28] MEDS: MORPHINE SULFATE INJ 4 MG/ML INJ 1ML IV PRN ×3 (13:25→23:05)
--- NOTE | 2019-07-28 15:38 | NUR ---
TRANSFUSION OF FIRST UNIT OF BLOOD COMPLETED AT THIS TIME. NO S/S OF ADVERSE REACTION NOTED. WILL CONTINUE TO MONITOR.
[2019-07-28 16:00] VITALS: BP 138/88
--- NOTE | 2019-07-28 16:15 | NUR ---
SECOND UNIT OF BLOOD STARTED AT 1610. NO S/S OF ADVERSE REACTIONS NOTED.
[2019-07-28] MEDS: ONDANSETRON HCL INJ 2MG/ML 2ML 2 MG/ML VIAL IV PRN ×2 (16:40→23:05)
--- NOTE | 2019-07-28 17:07 | History and Physical ---
HISTORY OF PRESENT ILLNESS: Mellisa Sullivan is a 53-year-old white female, who presents to the ER with history of extreme weakness, subsequently was found to have a hemoglobin of less than 6 g, history of vaginal bleed. The patient is known to have arterial thrombosis of left lower extremity, which has been treated by Cardiology 4 times so far. The patient has been on Coumadin, aspirin, and Plavix. The patient's INR goes up because of massive cirrhosis of liver. The patient's INR was more than 11. Office had called yesterday to come to the office to get 2.5 mg subcutaneously of vitamin K, however, she did not show up. We called her again today. The explanation given was that the has a new job and the daughter goes to school. She does not have any transportation. Subsequently, lands up in the ER with a hemoglobin of 5.1. ALLERGIES: REPORTED NONE. MEDICATIONS: At this time consists of Coumadin, aspirin, and Plavix. The patient at the present time on normal saline, fentanyl, which was given by the ER physician, morphine, ondansetron, and Protonix. HISTORY OF PAST ILLNESS: History of liver metastases, history of lung metastases, history of high CEA more than 800, history of vaginal bleed, and history of endometrial thickening. The patient could not have any biopsies because of the high INR. The patient's INR at one time had gone down to 1.65. Subsequently, she had clotted off the left lower extremity. The suggestion was to keep the INR between 3.5 to 4. However, because of cirrhosis in spite of every effort, the patient's INR runs high. 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 FAMILY HISTORY: Noncontributory. PHYSICAL EXAMINATION: GENERAL: A moderately built female, very anemic with a hemoglobin of 5.1. NECK: No adenopathy. HEART: Tachycardic. LUNGS: Clear. ABDOMEN: Obese. The liver is felt 6 inches down the costal margin, hard in consistency, crosses over the midline goes to the left upper abdominal quadrant 4 inches on the costal margin on the left upper abdominal quadrant. RECTAL AND VAGINAL: Deferred. CENTRAL NERVOUS SYSTEM: Essentially normal. EXTREMITIES: Gangrene of the left 5th toe and middle toe. This is black. The patient does have a dorsalis and posterior tibial on both the sides, however, weak on the left side. IMPRESSION: 1. Anemia of chronic disease. 2. Anemia of blood loss. 3. Vaginal bleed, possible endometrial carcinoma. 4. 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 5. Gangrene of the toes. 6. Liver metastases. 7. Lung metastases. 8. Noncompliance. PLAN, COMMENTS, AND SUGGESTION: Suggested no code, however, she vehemently denies. She wants to be a full code. The only thing I can do is give her best supportive care, blood transfusion. I will give her 2.5 mg of vitamin K subcutaneously. I will monitor her INR every 6 hours, as if I do not keep the INR above 4, she is going to clot off the left leg. She is terminally ill, however, has not accepted that she is dying. Liver biopsy or lung biopsy cannot be done, as if the INR had dropped down less than 2, she had clotted off the left lower extremity. Prognosis remains extremely poor. This has been discussed at length with the patient. She refuses to have any discussion with the patient's family. She vehemently denied me talking to the sister. At the office visit, the daughter had raised the possibility of survival, however, she also did not want me to talk to the daughter about the survival. It is a fairly advanced malignancy. I certainly hope that the patient will accept no code, as she is dying actively. Lior Beyer MD MAQ/MODL /[id number] cc: MD Desmond Cordoba MD
--- NOTE | 2019-07-28 18:36 | NUR ---
SECOND UNIT OF BLOOD FINISHED AT THIS TIME. NO S/S OF ADVERSE REACTIONS NOTED. WILL CONTINUE TO MONITOR.
--- NOTE | 2019-07-28 19:20 | NUR ---
RECEIVED REPORT FROM PREVIOUS NURSE. CALL LIGHT WITHIN REACH. PATIENT ASLEEP IN BED.
[2019-07-28 20:00] VITALS: BP 142/95
[2019-07-28 20:26] LABS: INR 5.98; PROTHROMBIN TIME 54.2 seconds (11.9-14.5)
[2019-07-28 20:28] VITALS: BP 142/95
--- NOTE | 2019-07-28 21:28 | NUR ---
CALLED AND TALKED TO DR. MATTHEW ABOUT THE PATIENT PT OF 54.2 [address] INR OF 5.98. [address] MATTHEW SAID TO CANCEL THE NEXT PT/INR AND JUST TAKE THE PT/INR IN THE MORNING.
[2019-07-29] VITALS (8 sets, daily range): BP systolic 123–158; BP diastolic 65–85
[2019-07-29] MEDS: MORPHINE SULFATE INJ 4 MG/ML INJ 1ML IV PRN ×6 (03:10→23:30)
[2019-07-29] MEDS: ONDANSETRON HCL INJ 2MG/ML 2ML 2 MG/ML VIAL IV PRN ×2 (03:10→11:30)
[2019-07-29] MEDS: PANTOPRAZOL 40MG/SOD CHL 0.9% 50 ML IV SCH ×4 (04:30→20:07)
[2019-07-29 06:04] LABS: INR 2.49; PROTHROMBIN TIME 27.6 seconds (11.9-14.5)
[2019-07-29 06:05] LABS: PARTIAL THROMBOPLASTIN TIME 53.8 seconds (23.8-35.5)
[2019-07-29 06:16] LABS: ANION GAP 13.2 mmol/L (8-16); BLOOD UREA NITROGEN 16 mg/dL (7-26); BUN/CREATININE RATIO 28 (6-25); CALCIUM 7.5 mg/dL (8.4-10.2); CARBON DIOXIDE 20 mmol/L (22-29); CHLORIDE 98 mmol/L (98-107); CREATININE, SERUM 0.57 mg/dL (0.57-1.11); EST GLOMERULAR FILTRATION RATE > 60 ML/MIN (60-); GLUCOSE 107 mg/dL (74-118); POTASSIUM 4.2 mmol/L (3.5-5.1); SODIUM 127 mmol/L (136-145)
[2019-07-29 06:21] LABS: BASOPHILS % 0.1 % (0.0-1.0); EOSINOPHILS # (AUTO) 0.1 (0.0-0.4); EOSINOPHILS % 0.6 % (0.0-6.0); LYMPHOCYTES # (AUTO) 1.8 (1.0-3.2); LYMPHOCYTES % 10.4 % (18.0-39.1); MEAN CORPUSCULAR HEMOGLOBIN 28.6 pg (28-32); MEAN CORPUSCULAR VOLUME 86.7 fL (81-99); MONOCYTES # (AUTO) 1.3 (0.2-0.8); MONOCYTES % 7.6 % (4.4-11.3); NEUTROPHILS % 80.4 % (38.7-80.0); PLATELET COUNT 385 x10e3/uL (140-360); RED CELL DISTRIBUTION WIDTH 16.4 % (11.7-14.4)
[2019-07-29 06:25] LABS: HEMATOCRIT 18.2 % (34.2-44.1)
--- NOTE | 2019-07-29 06:52 | NUR ---
RECEIVED BEDSIDE SHIFT REPORT FROM ONCOMING NURSE. PATIENT IS IN STABLE CONDITION. CALL LIGHT WITHIN REACH. BED IN THE LOWEST POSITION.
--- NOTE | 2019-07-29 07:05 | NUR ---
Called Dr. Jane office to talk to Dr. Beyer about the hemoglobin of 6.0, Hct of 18.2, PT of 27.6, and INR of 2.49. The call center said they will page/call Dr. Beyer to call back. Waiting for the doctor to call back
--- NOTE | 2019-07-29 07:14 | NUR ---
Gave report to oncoming nurse. call light within reach. Patient in bed.
[2019-07-29] MEDS: HYDROCODONE/APAP 7.5MG-325MG 1 EA TAB PO PRN ×3 (07:15→15:40)
[2019-07-29 07:50] LABS: LYMPHOCYTES % (MANUAL) 14 % (19-48); MONOCYTES % (MANUAL) 2 % (3.4-9.0); NEUTROPHILS % (MANUAL) 84 % (40-74); PLATELET ESTIMATE ADEQUATE; RBC MORPHOLOGY COMMENT NORMAL
[2019-07-29 07:51] LABS: PLATELET MORPHOLOGY COMMENT NORMAL
[2019-07-29] MEDS ORDERED: FUROSEMIDE INJ 10 MG/ML 2 ML VIAL IV ONE (08:45)
[2019-07-29] MEDS ORDERED: SODIUM CHLORIDE 0.9% 250ML 250 ML IV ONE (08:45)
[2019-07-29] MEDS ORDERED: WARFARIN SOD 5 MG TAB PO ONE ×2 (08:45→09:15)
[2019-07-29] MEDS: SODIUM CHLORIDE 0.9% 1000ML 1,000 ML IV SCH (08:58)
[2019-07-29] MEDS: CEFEPIME 1GM/NS 0.9% 50 ML 50 ML IV SCH ×2 (09:04→22:04)
[2019-07-29] MEDS: ASPIRIN 81 MG CHEW TAB PO SCH (09:13)
[2019-07-29] MEDS: CLOPIDOGREL BISULFATE 75 MG TAB PO SCH (09:13)
--- NOTE | 2019-07-29 10:35 | NUR ---
FIRST UNIT OF BLOOD STARTED AT 1020. NO S/S OF ADVERSE REACTION NOTED. WILL CONTINUE TO MONITOR.
--- NOTE | 2019-07-29 12:40 | NUR ---
FIRST UNIT OF BLOOD FINISHED AT THIS TIME. NO ADVERSE REACTION NOTED. WILL CONTINUE TO MONITOR.
[2019-07-29 13:42] LABS: INR 1.77; PROTHROMBIN TIME 21.3 seconds (11.9-14.5)
[2019-07-29] MEDS ORDERED: HEPARIN 25,000 UNIT 1,200 UNIT in DEXTROSE 5% 250ML 250 ML IV SCH (14:15)
[2019-07-29] MEDS ORDERED: HEPARIN SOD (PORCINE) 5,000 UNIT/ML VIAL IV ONE ×2 (14:15→14:45)
[2019-07-29] MEDS ORDERED: SODIUM CHLORIDE 0.9% 250ML 250 ML ONE ×2 (15:04→22:15)
[2019-07-29] MEDS: HEPARIN 25,000 UNIT 1,100 UNIT in DEXTROSE 5% 250ML 250 ML IV SCH (15:20)
--- NOTE | 2019-07-29 16:47 | Progress Note ---
DATE: 07/29/2019 For detailed history and physical, please review my dictation, dated 07/28/2019. The hemoglobin was reported at 5.1. Subsequently, 2 units packed RBCs were given. We brought the hemoglobin up on 07/29 to 6. The patient's white count was 17,420 and platelets are running at 385,000. The patient's chemistry has shown a sodium of 128, potassium of 4.7, chloride is 94, CO2 of 17, BUN 15, and creatinine 0.5. Alkaline phosphatase is very high at 337, SGOT very high at 210, consistent with massive metastases. CK has also risen to 349. The patient's sodium today is 127, potassium 4.2, calcium has dropped down to 7.5. Coagulation; the patient's INR was 14.24. A 2.5 mg of vitamin K was given subcutaneously, as she is hypersensitive and hypercoagulable, had multiple arterial thrombi. Subsequently in 6 hours, the INR dropped down to 12.28 and then in 6 hours 5.98 and down to 2.49 by only 2.5 mg of vitamin K subcutaneously. The INR today is 1.77. The patient in the past had clotted off her left lower extremity with an INR of 1.65. I have discussed at length with her. She is hypercoagulable because of the underlying malignancy, which she has thrombophilia and the patient subsequently clots off very quickly. The only drug which has kept her from clotting is the Coumadin, as she had clotted off at other anticoagulants. She also is supersensitive to Coumadin because of cirrhosis and because of massive metastases to the liver. I had discussed possibility of no code, however, she wants to have a full code. I have also discussed that she needs to discuss the terminal illness, which she still has not and she had prevented me also from discussing this especially with the daughter. I have discussed multiple times with her that because of inability to bring down the INR to where the patient could even have a liver biopsy, this is not possible as the patient will clot off her left lower extremity. Even now, she has 2 digits which are gangrenous, the middle one and also the small one. I have also discussed with her on physical exam, the liver is very hard crossing over 6 inches down the costal margin to the left side close to the spleen, which is also approximately 3 to 4 inches down to costal margin over the left upper abdominal quadrant. I have had the daughter also feel the liver just to get an idea how far advanced a malignancy she has. Primary could be anywhere in the GI tract, could be in the tract, especially in the endometrium. However, endometrial biopsy could not be done again because of inability to bring the INR down to where any meaningful biopsy could be done because of the fear of clotting off the left lower extremity, which she has done for 4 times. She has a terminal disease. I have discussed this with her many a times. Prognosis remains extremely poor. The only thing I am doing at this time is to keep her comfortable, where she would change her mind and start thinking of no code, which she vehemently has denied. Lior Beyer MD MAQ/MODL /[id number] cc: MD Dr. Narda Cordoba
--- NOTE | 2019-07-29 17:50 | NUR ---
SECOND UNIT OF BLOOD COMPLETED AT THIS TIME. NO ADVERSE REACTIONS NOTED. WILL CONTINUE TO MONITOR.
[2019-07-29 18:39] LABS: INR 1.96
--- NOTE | 2019-07-29 19:20 | NUR ---
Received report from previous nurse. Call light within reach. Patient in bed.
--- NOTE | 2019-07-29 19:40 | NUR ---
BEDSIDE SHIFT REPORT GIVEN TO ONCOMING NURSE. NO ACUTE DISTRESS NOTED. CALL LIGHT WITHIN REACH. BED IN THE LOWEST POSITION.
[2019-07-29] MEDS: ONDANSETRON HCL 4 MG ORAL DISINTEGRATING TAB PO PRN (20:07)
--- NOTE | 2019-07-29 21:20 | NUR ---
PTT results was 72.3 so she has 2 consecutive within range values so no change was done for the heparin. Placed order for daily PTT at 0600 per protocol
--- NOTE | 2019-07-29 23:00 | NUR ---
Patient requested to be bladder scanned before the removal of the Franklin. Patient was bladder scanned with 27 cc seen on the scan. Franklin was removed. Patient in no distress
[2019-07-30] VITALS (9 sets, daily range): BP systolic 107–136; BP diastolic 69–75
[2019-07-30 01:03] LABS: INR 1.85
[2019-07-30] MEDS: HYDROCODONE/APAP 7.5MG-325MG 1 EA TAB PO PRN ×5 (01:22→23:45)
--- NOTE | 2019-07-30 01:43 | NUR ---
Called and talked to Dr. Beyer about the patient's PT of 22.0 and INR of 1.85. Dr. Beyer said to give 5 mg Coumadin daily and PT/INR daily
[2019-07-30] MEDS: PANTOPRAZOL 40MG/SOD CHL 0.9% 50 ML IV SCH ×6 (02:14→23:45)
--- NOTE | 2019-07-30 04:00 | NUR ---
Patient peed in the bedside commode and felt something come big come out. A big blood clot the size of two fist came out. Contacted charge nurse and charge nurse said to leave the clot for the Dr to see.
[2019-07-30] MEDS: MORPHINE SULFATE INJ 4 MG/ML INJ 1ML IV PRN ×6 (04:27→20:22)
[2019-07-30] MEDS: ONDANSETRON HCL 4 MG ORAL DISINTEGRATING TAB PO PRN ×3 (04:32→23:45)
[2019-07-30] MEDS: SODIUM CHLORIDE 0.9% 1000ML 1,000 ML IV SCH ×2 (05:01→23:45)
[2019-07-30 06:04] LABS: BASOPHILS % 0.1 % (0.0-1.0); EOSINOPHILS # (AUTO) 0.2 (0.0-0.4); EOSINOPHILS % 1.4 % (0.0-6.0); HEMOGLOBIN 8.1 g/dL (12.0-16.0); LYMPHOCYTES # (AUTO) 1.2 (1.0-3.2); MEAN CORPUSCULAR HEMOGLOBIN 28.9 pg (28-32); MEAN CORPUSCULAR HGB CONC 33.8 g/dL (31-35); MEAN CORPUSCULAR VOLUME 85.7 fL (81-99); MONOCYTES # (AUTO) 0.9 (0.2-0.8); MONOCYTES % 6.2 % (4.4-11.3); NEUTROPHILS # (AUTO) 11.3 (2.1-6.9); NEUTROPHILS % 82.1 % (38.7-80.0); PLATELET COUNT 339 x10e3/uL (140-360); RED CELL DISTRIBUTION WIDTH 15.8 % (11.7-14.4)
[2019-07-30 06:38] LABS: INR 1.77; PROTHROMBIN TIME 21.3 seconds (11.9-14.5)
[2019-07-30 06:42] LABS: ANION GAP 15.7 mmol/L (8-16); BLOOD UREA NITROGEN 11 mg/dL (7-26); BUN/CREATININE RATIO 20 (6-25); CALCIUM 7.7 mg/dL (8.4-10.2); CARBON DIOXIDE 20 mmol/L (22-29); CHLORIDE 95 mmol/L (98-107); CREATININE, SERUM 0.55 mg/dL (0.57-1.11); EST GLOMERULAR FILTRATION RATE > 60 ML/MIN (60-); GLUCOSE 135 mg/dL (74-118); POTASSIUM 3.7 mmol/L (3.5-5.1); SODIUM 127 mmol/L (136-145)
--- NOTE | 2019-07-30 07:10 | NUR ---
Gave report to oncoming nurse. call light within reach. patient in bed.
--- NOTE | 2019-07-30 07:26 | NUR ---
Called Dr. Beyer office to tell him the PT and INR results. Waiting for the Dr to call back. The answering ser
--- NOTE | 2019-07-30 07:28 | NUR ---
Called and talked to Dr. Romero about the patient's PT of 21.3 and INR of 1.77. Dr. Romero said to continue with the heparin and Coumadin daily and daily PT/INR labs.
[2019-07-30] MEDS: ASPIRIN 81 MG CHEW TAB PO SCH (08:01)
[2019-07-30] MEDS: CLOPIDOGREL BISULFATE 75 MG TAB PO SCH (08:01)
[2019-07-30 08:16] LABS: BAND NEUTROPHILS % (MANUAL) 2 %; EOSINOPHILS % (MANUAL) 3 % (0-7); LYMPHOCYTES % (MANUAL) 8 % (19-48); METAMYELOCYTES % (MANUAL) 3 % (0-0); MONOCYTES % (MANUAL) 4 % (3.4-9.0); NEUTROPHILS % (MANUAL) 80 % (40-74); PLATELET ESTIMATE ADEQUATE; PLATELET MORPHOLOGY COMMENT NORMAL; RBC MORPHOLOGY COMMENT NORMAL
[2019-07-30] MEDS: LACTULOSE SYRUP 20 GM/30 ML UDC PO PRN (08:28)
[2019-07-30] MEDS: CEFEPIME 1GM/NS 0.9% 50 ML 50 ML IV SCH ×2 (09:53→22:00)
--- NOTE | 2019-07-30 11:45 | NUR ---
ASSESSMENT: Spiritual distress Pt skeptical concerning source of illness. Pt's brothers at bedside. Pt's family very supportive and give life meaning. Intervention: Provided empathic listening and hospitality. Facilitated illness review and discussion about plan of care. Provided prayer. Provided information on how to reach paper roll machine operator, if needed. Outcome: Pt expressed appreciation for visit. Followed up with RN. REA VERMA Adult Protective Caseworker Spiritual Care Department O: [phone] Pager: [phone] ([phone] number calling from)
[2019-07-30] MEDS: HEPARIN 25,000 UNIT 1,100 UNIT in DEXTROSE 5% 250ML 250 ML IV SCH (12:33)
[2019-07-30] MEDS: WARFARIN SOD 5 MG TAB PO SCH (17:08)
--- NOTE | 2019-07-30 19:15 | NUR ---
patient received awake, alert, lying quietly in bed. no c/o pain noted. ivf, heparin and protonix drip continues to infuse without difficulty. pm assessment complete. patient instructed to call for assistance when needed.
--- NOTE | 2019-07-30 20:22 | NUR ---
patient medicated with morphine 4mg ivp for c/o left foot pain seven out of ten at this time.
--- NOTE | 2019-07-30 23:45 | NUR ---
patient medicated with norco 75/325mg po for c/o left foot pain five out of ten at this time. Addendum: 07/31/19 at 0516 by Magali Acosta RN norco 7.5/325mg given
[2019-07-31] VITALS (8 sets, daily range): BP systolic 99–122; BP diastolic 57–74
[2019-07-31] MEDS: MORPHINE SULFATE INJ 4 MG/ML INJ 1ML IV PRN ×6 (02:11→23:35)
--- NOTE | 2019-07-31 02:11 | NUR ---
patient medicated with morphine 4mg ivp for c/o left foot pain 03/10 at this time.
[2019-07-31] MEDS: PANTOPRAZOL 40MG/SOD CHL 0.9% 50 ML IV SCH ×4 (05:14→20:24)
[2019-07-31] MEDS: HYDROCODONE/APAP 7.5MG-325MG 1 EA TAB PO PRN ×3 (05:14→22:06)
[2019-07-31] MEDS: ONDANSETRON HCL 4 MG ORAL DISINTEGRATING TAB PO PRN ×2 (05:14→20:10)
--- NOTE | 2019-07-31 05:14 | NUR ---
patient medicated with norco 7.5/325mg po for c/o left foot pain 5/10 at this time.
--- NOTE | 2019-07-31 06:54 | NUR ---
RECEIVED BEDSIDE SHIFT REPORT FROM OFF GOING NURSE. PATIENT IS IN STABLE CONDITION. CALL LIGHT WITHIN REACH. BED IN THE LOWEST POSITION.
--- NOTE | 2019-07-31 07:00 | NUR ---
report/walking rounds complete at this time.
[2019-07-31 07:09] LABS: INR 2.03; PROTHROMBIN TIME 23.6 seconds (11.9-14.5)
[2019-07-31] MEDS: ASPIRIN 81 MG CHEW TAB PO SCH (08:28)
[2019-07-31] MEDS: CEFEPIME 1GM/NS 0.9% 50 ML 50 ML IV SCH (08:28)
[2019-07-31] MEDS: CLOPIDOGREL BISULFATE 75 MG TAB PO SCH (08:28)
[2019-07-31] MEDS: HEPARIN 25,000 UNIT 1,100 UNIT in DEXTROSE 5% 250ML 250 ML IV SCH (11:27)
[2019-07-31] MEDS: WARFARIN SOD 5 MG TAB PO SCH (16:00)
--- NOTE | 2019-07-31 19:15 | NUR ---
BEDSIDE SHIFT REPORT GIVEN TO ONCOMING NURSE. PATIENT IS IN STABLE CONDITION, NO ACUTE DISTRESS NOTED. CALL LIGHT WITHIN REACH. BED IN THE LOWEST POSITION.
--- NOTE | 2019-07-31 19:16 | NUR ---
Nutrition Screen Note RD Recommendation for Physician: Continue diet as ordered Plan of Care: RD following, monitoring for tolerance and adequacy Nutrition reason for involvement: Nutrition Risk Trigger - MST Primary Diagnose(s):abdominal pain,anemia, coumadin toxicity PMH: Liver, lung metastasis, Ht:67 in Wt:145.13lb BMI:22.7 kg/m2 IBW:135lb +/-10% RD Assessment: (07/31/2019) Chart reviewed. Labs and meds reviewed. Initial encounter with patient. Pt is on Warfarin and was able to give examples of foods that contain vitamin K. Pt with voluntary wt loss due to a wellness program. Pt denies any difficulty chewing or swallowing. Pt has chronic constipation. Pt denies any nausea or vomiting. Pt has no known food allergies Current Diet: Regular diet Malnutrition Evaluation (07/31/2019) The patient does not meet criteria for a specified degree of malnutrition at this time. Will re-evaluate at follow-up as appropriate. Diet Education Needs Assessment: Diet education not indicated. Nutrition Care Level: Low, Signed: Ron Herron RD, LD, [facility]
[2019-07-31] MEDS: SODIUM CHLORIDE 0.9% 1000ML 1,000 ML IV SCH (19:32)
[2019-07-31] MEDS ORDERED: ACETAMINOPHEN 325 MG TAB PO PRN (22:00)
--- NOTE | 2019-07-31 22:00 | NUR ---
ASSESSMENT DONE.NO RESP.DISTRESS.VOIDED.MILD VAG.BLEEDING NOTED.SMALL CLOTS NOTED.TEMP 101.2.NOTIFIED TO .ODRERED FOR BLOOD CULTURE.RECEIVED NEW MEDICATION ORDERS.BED LOCKED AND IN LOWEST POSITION.PHONE AND CALL LIGHT WITHIN REACH.INSTRUCTED TO CALL FOR ASSISTANCE NEEDED.
[2019-07-31] MEDS ORDERED: ACETAMINOPHEN 325 MG TAB ONE (22:06)
[2019-07-31] MEDS ORDERED: PIPER-TAZ 3.375 GM 50 ML IV SCH (23:00)
--- NOTE | 2019-07-31 23:00 | NUR ---
Blood culture x2 derrick from two different iv sites and blood culture x1 (21:40pm) collected from right femoral central line after discussed with charge nurse .
[2019-07-31] MEDS: VANCOMYCIN 1GM/NS 250 ML 250 ML IV SCH (23:44)
[2019-08-01] VITALS (7 sets, daily range): BP systolic 97–113; BP diastolic 60–71
[2019-08-01] MEDS: PANTOPRAZOL 40MG/SOD CHL 0.9% 50 ML IV SCH ×5 (01:40→21:10)
[2019-08-01] MEDS: MORPHINE SULFATE INJ 4 MG/ML INJ 1ML IV PRN ×6 (02:45→23:30)
[2019-08-01] MEDS: ONDANSETRON HCL 4 MG ORAL DISINTEGRATING TAB PO PRN ×2 (02:45→10:58)
[2019-08-01] MEDS: HYDROCODONE/APAP 7.5MG-325MG 1 EA TAB PO PRN ×5 (04:25→21:14)
[2019-08-01 06:14] LABS: BASOPHILS % 0.1 % (0.0-1.0); EOSINOPHILS # (AUTO) 0.2 (0.0-0.4); EOSINOPHILS % 1.6 % (0.0-6.0); LYMPHOCYTES # (AUTO) 1.4 (1.0-3.2); LYMPHOCYTES % 9.1 % (18.0-39.1); MEAN CORPUSCULAR HEMOGLOBIN 28.8 pg (28-32); MEAN CORPUSCULAR VOLUME 87.1 fL (81-99); MONOCYTES % 6.8 % (4.4-11.3); NEUTROPHILS # (AUTO) 11.8 (2.1-6.9); NEUTROPHILS % 78.8 % (38.7-80.0); PLATELET COUNT 416 x10e3/uL (140-360); RED BLOOD COUNT 2.33 x10e6/uL (3.6-5.1); RED CELL DISTRIBUTION WIDTH 16.3 % (11.7-14.4)
[2019-08-01 06:23] LABS: HEMATOCRIT 20.3 % (34.2-44.1); HEMOGLOBIN 6.7 g/dL (12.0-16.0)
[2019-08-01 06:46] LABS: INR 2.62; PROTHROMBIN TIME 28.7 seconds (11.9-14.5)
--- NOTE | 2019-08-01 06:50 | NUR ---
Lab critical value informed to .received new orders.Bed side shift report given to the oncoming Rn.stable condition.
--- NOTE | 2019-08-01 06:52 | NUR ---
RECEIVED BEDSIDE SHIFT REPORT RECEIVED FROM OFF GOING NURSE. PATIENT IS IN STABLE CONDITION, NO S/S OF DISTRESS NOTED. CALL LIGHT WITHIN REACH. BED IN THE LOWEST POSITION.
[2019-08-01] MEDS ORDERED: SODIUM CHLORIDE 0.9% 250ML 250 ML IV ONE (07:00)
[2019-08-01] MEDS: CLOPIDOGREL BISULFATE 75 MG TAB PO SCH (08:38)
[2019-08-01] MEDS: LACTULOSE SYRUP 20 GM/30 ML UDC PO PRN (08:38)
[2019-08-01] MEDS: ASPIRIN 81 MG CHEW TAB PO SCH (08:38)
[2019-08-01] MEDS: VANCOMYCIN 1GM/NS 250 ML 250 ML IV SCH (10:58)
[2019-08-01] MEDS ORDERED: SODIUM CHLORIDE 0.9% 250ML 250 ML ONE (11:27)
[2019-08-01] MEDS: AZTREONAM 1 GM/NS 50 ML 50 ML IV SCH ×3 (12:35→23:00)
[2019-08-01] MEDS: SODIUM CHLORIDE 0.9% 1000ML 1,000 ML IV SCH (15:05)
[2019-08-01] MEDS: WARFARIN SOD 5 MG TAB PO SCH (17:00)
--- NOTE | 2019-08-01 19:15 | NUR ---
patient received awake, alert, lying quietly in bed. patient requesting pain medication at this time. pm assessment complete. ivf/iv protonix continue to infuse to right femoral tlc without difficulty. patient instructed to call for assistance when needed.
--- NOTE | 2019-08-01 19:20 | NUR ---
BEDSIDE SHIFT REPORT GIVEN TO ONCOMING NURSE. PATIENT IS RESTING IN BED. NO ACUTE DISTRESS NOTED. CALL LIGHT WITHIN REACH. BED IN THE LOWEST POSITION.
[2019-08-02] VITALS (8 sets, daily range): BP systolic 112–138; BP diastolic 68–94
--- NOTE | 2019-08-02 | NUR ---
vancomycin trough drawn at this time and sent to lab.
[2019-08-02] MEDS: HYDROCODONE/APAP 7.5MG-325MG 1 EA TAB PO PRN ×4 (01:20→21:38)
[2019-08-02] MEDS: PANTOPRAZOL 40MG/SOD CHL 0.9% 50 ML IV SCH ×5 (02:15→21:38)
[2019-08-02] MEDS: MORPHINE SULFATE INJ 4 MG/ML INJ 1ML IV PRN ×5 (04:00→20:25)
--- NOTE | 2019-08-02 04:00 | NUR ---
patient medicated for c/o left foot pain 03/10 at this time. pulses to left foot audible with doppler. left foot remains elevated on pillow.
[2019-08-02] MEDS: AZTREONAM 1 GM/NS 50 ML 50 ML IV SCH ×3 (05:33→17:03)
--- NOTE | 2019-08-02 05:45 | NUR ---
patient oob to bsc with assistance. patient voids without difficulty.
[2019-08-02 06:03] LABS: BASOPHILS % 0.2 % (0.0-1.0); EOSINOPHILS # (AUTO) 0.4 (0.0-0.4); EOSINOPHILS % 1.9 % (0.0-6.0); HEMATOCRIT 25.1 % (34.2-44.1); HEMOGLOBIN 8.3 g/dL (12.0-16.0); LYMPHOCYTES # (AUTO) 1.5 (1.0-3.2); MEAN CORPUSCULAR HGB CONC 33.1 g/dL (31-35); MEAN CORPUSCULAR VOLUME 87.8 fL (81-99); MONOCYTES # (AUTO) 1.2 (0.2-0.8); MONOCYTES % 6.5 % (4.4-11.3); NEUTROPHILS # (AUTO) 14.5 (2.1-6.9); PLATELET COUNT 423 x10e3/uL (140-360); RED BLOOD COUNT 2.86 x10e6/uL (3.6-5.1); RED CELL DISTRIBUTION WIDTH 16.6 % (11.7-14.4)
[2019-08-02 06:16] LABS: INR 3.55; PROTHROMBIN TIME 36.3 seconds (11.9-14.5)
[2019-08-02] MEDS: ASPIRIN 81 MG CHEW TAB PO SCH (08:11)
[2019-08-02] MEDS: CLOPIDOGREL BISULFATE 75 MG TAB PO SCH (08:11)
--- NOTE | 2019-08-02 10:50 | NUR ---
ASSESSMENT: Spiritual distress Pt hopeful to continue career. 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 Pt states her "large family" is "very close." Intervention: Provided unhurried pastoral presence. Facilitated illness update. Discussed plan of care. Provided prayer. Reminded pt of availability of milling operator, if needed. Outcome: Pt expressed appreciation of support. Will continue to follow as able. REA VERMA Energy Analyst Spiritual Care Department O: [phone] Pager: [phone] ([phone] number calling from)
[2019-08-02] MEDS: LACTULOSE SYRUP 20 GM/30 ML UDC PO PRN (11:20)
[2019-08-02] MEDS: ONDANSETRON HCL 4 MG ORAL DISINTEGRATING TAB PO PRN (11:33)
--- NOTE | 2019-08-02 12:05 | NUR ---
Patient up in bed, Alert with no distress, eating lunch this time
[2019-08-02] MEDS: VANCOMYCIN 1GM/NS 250 ML 250 ML IV SCH ×2 (12:18)
[2019-08-02] MEDS: SODIUM CHLORIDE 0.9% 1000ML 1,000 ML IV SCH (12:18)
--- NOTE | 2019-08-02 16:09 | NUR ---
PT/INR result notified to Dr Beyer, new order recvd to reduce to Coumadin 4mg and repeat lab CBC and PT/INR for tomorrow.
[2019-08-02] MEDS: WARFARIN SOD 2 MG TAB PO SCH (16:52)
--- NOTE | 2019-08-02 19:15 | NUR ---
patient received awake, alert, sitting up in bed. no c/o pain noted. ivf/protonix drip continues to infuse without difficulty. pm assessment complete. family noted at the bedside. patient/family instructed to call for assistance when needed.
--- NOTE | 2019-08-02 22:56 | Consultation ---
DATE OF CONSULTATION: REASON FOR CONSULTATION: Fever. Thank you so much for seeing this patient. 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 Her problem started back in June 04 when she had an acute onset of left foot gangrenous changes. She had a popliteal arterial clot. She was admitted. She was given thrombolytics therapy, discharged home with Xarelto, they came back again few days later with a second clot in the same spot. She was here for a few days and then discharged. She was at home maybe for 4 days, came back again with another clot. She was given anticoagulation. She was discharged home. Now, she came back with feeling weak. She was found to have hemorrhage and she bled intravaginally. Her hemoglobin was 5.2. The patient received 3 units of blood. The patient was admitted originally in July 28, [address] Beyer. When she first came, she was on Coumadin, aspirin and Plavix. The patient was started on 6 units of blood as mentioned above, but then she started to have fever. In addition to fever, she has no complaints. There is no nausea, no vomiting, no diarrhea. She feels really good. She received one more unit of blood, so Infectious Disease was asked to see the patient. The patient does have a history of liver metastases, lung metastases, source is unclear. Workup is not done yet. Hypercoagulable state as mentioned above, anemia of chronic disease and blood loss. ALLERGIES: NKA. 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 There is no drug abuse or alcohol abuse. MEDICATIONS: The patient has been on: 1. Azactam. 2. Coumadin. 3. Vancomycin. Her blood cultures all been negative. Her urine cultures also been negative. Her chest x-ray showed no acute abnormality. PHYSICAL EXAMINATION: GENERAL: She is currently alert, oriented, does not seem to be in acute distress. VITAL SIGNS: Stable, currently afebrile as mentioned above. HEENT: Normocephalic, not icteric. NECK: Supple. CHEST: Clear. COR: S1 and S2. ABDOMEN: Soft. Bowel sounds present. EXTREMITIES: No edema. SKIN: No rash. IMPRESSION: 1. Fever. The patient has been in the hospital on antibiotic, but the workup is negative. Her physical examination is negative to suggest infection. Clinically, she looks really good. I am concerned it could be related to blood transfusion that she had, also need to be ruled out. I think she is clinically stable. We can discontinue antibiotic and observe the patient clinically. She had no fever more than 24 hours. We will discuss with Dr. Beyer. 2. Hypercoagulable state. 3. Anemia of acute on chronic. 4. Liver mets, lung mets. 5. We will follow. MD LALI Espitia/MODL /[id number]
[2019-08-03] VITALS (8 sets, daily range): BP systolic 118–135; BP diastolic 70–78
[2019-08-03] MEDS: MORPHINE SULFATE INJ 4 MG/ML INJ 1ML IV PRN ×6 (00:50→21:45)
[2019-08-03 02:11] LABS: BILIRUBIN,URINE NEGATIVE (NEGATIVE); CLARITY,URINE CLOUDY (CLEAR); COLOR,URINE YELLOW (YELLOW); KETONES,URINE NEGATIVE (NEGATIVE); LEUKOCYTE ESTERASE ,URINE SMALL (NEGATIVE); NITRITE,URINE NEGATIVE (NEGATIVE); PROTEIN,URINE DIPSTICK NEGATIVE (NEGATIVE); URINE UROBILINOGEN 1 mg/dL (0.2 - 1)
[2019-08-03] MEDS: HYDROCODONE/APAP 7.5MG-325MG 1 EA TAB PO PRN ×6 (02:57→23:00)
[2019-08-03 03:22] LABS: RBC,URINE 21-50 /HPF (0-5); WBC,URINE (MAN) 21-50 /HPF (0-5)
[2019-08-03 03:23] LABS: BACTERIA,URINE FEW /HPF; EPITHELIAL CELLS,URINE FEW /LPF
[2019-08-03 06:11] LABS: BASOPHILS % 0.2 % (0.0-1.0); EOSINOPHILS # (AUTO) 0.4 (0.0-0.4); EOSINOPHILS % 2.2 % (0.0-6.0); HEMATOCRIT 25.7 % (34.2-44.1); HEMOGLOBIN 8.5 g/dL (12.0-16.0); LYMPHOCYTES # (AUTO) 1.4 (1.0-3.2); LYMPHOCYTES % 8.1 % (18.0-39.1); MEAN CORPUSCULAR HEMOGLOBIN 29.2 pg (28-32); MEAN CORPUSCULAR HGB CONC 33.1 g/dL (31-35); MEAN CORPUSCULAR VOLUME 88.3 fL (81-99); MONOCYTES # (AUTO) 1.1 (0.2-0.8); NEUTROPHILS # (AUTO) 13.9 (2.1-6.9); NEUTROPHILS % 79.3 % (38.7-80.0); PLATELET COUNT 458 x10e3/uL (140-360); RED BLOOD COUNT 2.91 x10e6/uL (3.6-5.1); RED CELL DISTRIBUTION WIDTH 16.6 % (11.7-14.4)
[2019-08-03 06:28] LABS: INR 4.83
--- NOTE | 2019-08-03 08:25 | NUR ---
Called Anita Adkins's mobile phone regarding patient's PT of 46 seconds and INR of 4.83, left call back number [phone] and lab result and my name, patient's name.
[2019-08-03] MEDS: CLOPIDOGREL BISULFATE 75 MG TAB PO SCH (09:04)
[2019-08-03] MEDS: ASPIRIN 81 MG CHEW TAB PO SCH (09:04)
[2019-08-03] MEDS: ONDANSETRON HCL 4 MG ORAL DISINTEGRATING TAB PO PRN ×4 (09:14→22:54)
[2019-08-03] MEDS: LACTULOSE SYRUP 20 GM/30 ML UDC PO PRN (09:14)
[2019-08-03] MEDS: SODIUM CHLORIDE 0.9% 1000ML 1,000 ML IV SCH (09:15)
[2019-08-03] MEDS: WARFARIN SOD 2 MG TAB PO SCH (17:00)
[2019-08-03] MEDS ORDERED: WARFARIN SOD 2 MG TAB PO SCH (18:15)
--- NOTE | 2019-08-03 19:15 | NUR ---
[facility] oncoming shift report received from CHANNING Fernandez, made aware that patient INR 4.83, and SD 46, that MD [place] office was notified, no ball back with order at this time, patient AOX4, sitting high Fowlers position, respirations even and unlabored skin warm dry,c/o pain level 4/10 last pain medicaiton at 1826, patient IV access right femoral triple lumen patent, each port flushes well w/o difficulty no s/sx of infection/infiltration noted, LFA patent flushes well, no s/sx of infiltration noted, oncoming staff introduced, POC discussed with patient, patient made aware time schedule of pain medication, all personal belonging within reach, requested ice, request carried out, call light placed within reach will continue to monitor for pain and s/sx of bleeding
[2019-08-04] VITALS (8 sets, daily range): BP systolic 119–156; BP diastolic 70–81
--- NOTE | 2019-08-04 00:24 | Progress Note ---
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 For detailed history and physical, please review my dictation dated 07/28/2019. Multiple conversations were carried out with the patient initially in the emergency room to make her no code. She wanted a full code. The nurses had approached me regarding the supportive care. However, clinically she is not there today. I took the test case developer, Laverne with me to discuss again what her plans are. Again, I raised the question of no code and her response was "I have not given up, I still think that there is some way of treating me." She also said that I sent out feelers outside to the neuro-oncologist and an oncologist friend of his and multiple nursing staff, and so on and so on, but she has not received any input from anyone so far. I explained again that once the INR was 1.65, she had clotted off her limb for any interventional radiologist to do the biopsy of the liver or even the lung. The patient's INR has to be less than 1.5 and the moment we try to get the INR to 1.5, she will clot off the leg. I also explained to her that even if a biopsy was done, this is massive metastases, the treatment would only be palliation and the palliative treatment would only mean that she may have a partial response or even really stable disease for some time. This would involve systemic chemotherapy as this is a metastatic disease. I have also explained multiple times and even today with Laverne that this is a far advanced malignancy. I have also explained to her that if the INR is not kept above 4, the patient may clot off. I also explained again one more time that when the INR was about 3.8, I cut down on Coumadin to 5 mg for six days a week, her INR went down to 1.65 and then she clotted off. I have also explained to her again one more time along with Laverne that the non-vitamin K anticoagulants, which were given to the patient, consisting of Xarelto and Eliquis did not work because she had clotted off the left lower extremity with these. The only thing which is working is Coumadin, Plavix, and aspirin. The chance for bleeding from the vagina and from the rectum is there. However, if the INR is not kept close to 4, the patient will clot off. I had decreased her Coumadin from 5 mg to 4 mg yesterday because her INR was 3.55 today. The INR is 4.83. I have cut it down again to 2 mg, is very possible; even with 2 mg, she will either overshoot or clot off. I have explained to her, hematologically her CBC is reasonable at 8.5. All cultures are negative. If the INR is close to 5, she could perhaps be discharged, however, that she might again overshoot and come back bleeding, if not she will clot off. I have also asked her would there be a physician or an institution who will accept her, so far she has no answer for that. She also mentioned "there must be one way of biopsying my liver and starting the chemotherapy." I have explained to her as per my experience, this is not possible in her as again and I keep repeating once the INR is less than 2, she clots off. It has ku fairly difficult to convince her that she has a terminal disease that she needs to be on no code, perhaps hospice. However, she has not given up as she has spoken to us. I will continue to treat her. However, I suspect: 1. Either she will bleed. 2. She will clot off the leg again if the INR is not kept therapeutic. Keeping the INR therapeutic is also not a small feat in her because she does have cirrhosis of the liver and not clotting is also a feat as she has a hypercoagulable state with the underlying malignancy and has clotted off the leg at least four times now. Liver functions are very poor with a very low albumin of 1.6 and an alkaline phosphatase 337 and a SGOT of 310. Prognosis remains extremely poor. I do not think she will ever give up. I will continue to provide her the best supportive care so far. MD KENDRA Lara/OZIELL /[id number]
[2019-08-04] MEDS: SODIUM CHLORIDE 0.9% 1000ML 1,000 ML IV SCH ×3 (00:48→09:36)
[2019-08-04] MEDS: MORPHINE SULFATE INJ 4 MG/ML INJ 1ML IV PRN ×6 (00:52→20:25)
--- NOTE | 2019-08-04 01:00 | NUR ---
patient c/o Left lower foot and toes pain, left foot first third and fifth metacarpal gangrene, (+) pulses uses doppler noted, patient states pain level 8/10 stabbing, burning nonradiating, requesting PRN Morphine Q3H, no respiration depression noted, awake alert, non-drowsy at this time RR 17, PRN morphine given via LFA 20G IV, will continue to monitor and reassess patient pain level per protocol
[2019-08-04] MEDS: ONDANSETRON HCL 4 MG ORAL DISINTEGRATING TAB PO PRN (03:22)
[2019-08-04] MEDS: HYDROCODONE/APAP 7.5MG-325MG 1 EA TAB PO PRN ×4 (03:36→19:03)
--- NOTE | 2019-08-04 05:20 | NUR ---
patient c/o pain level 7-04/10, PRN morphine 4mg given via IV, reassesment completed patient continues to c/o left foot and toe pain at 03/10, with out good relief, educated patient on pain intervention and educated on pain medication next dosage time, call light within reach will continue to monitor for bleeding and pain
--- NOTE | 2019-08-04 07:00 | NUR ---
PATIENT IS ALERT AND IN STABLE CONDITION WITH NO S/S OF RESPIRATORY DISTRESS- PATIENT C/O LOWER EXTREMITY LEGS 02/08. IV FLUIDS INFUSING; TELEMETRY APPLIED. PITTING EDEMA NOTED TO LOWER EXTREMITIES. CALL LIGHT IS WITHIN REACH, PATIENT INSTRUCTED TO CALL FOR ASSISTANCE NEEDED.
--- NOTE | 2019-08-04 07:11 | NUR ---
SBAR report given to oncoming shift RN at bedside, patient AOX4, no distress noted, skin warm dry, reports pain level 6/10, pt informed of next PRN pain medication schedule, she acknowledge with repeat-back, call light within reach, bed in lowest position, femoral triple lumen capped, LFA patent no c/o pain at site, NS infusing at 50cc/hr
[2019-08-04] MEDS: ASPIRIN 81 MG CHEW TAB PO SCH (08:27)
[2019-08-04] MEDS: CLOPIDOGREL BISULFATE 75 MG TAB PO SCH (08:28)
[2019-08-04] MEDS: LACTULOSE SYRUP 20 GM/30 ML UDC PO PRN (08:28)
[2019-08-04 09:15] LABS: BASOPHILS # (AUTO) 0.1 (0.0-0.1); BASOPHILS % 0.5 % (0.0-1.0); EOSINOPHILS # (AUTO) 0.5 (0.0-0.4); EOSINOPHILS % 2.6 % (0.0-6.0); HEMATOCRIT 30.2 % (34.2-44.1); HEMOGLOBIN 9.8 g/dL (12.0-16.0); LYMPHOCYTES # (AUTO) 1.3 (1.0-3.2); LYMPHOCYTES % 7.7 % (18.0-39.1); MEAN CORPUSCULAR HEMOGLOBIN 29.6 pg (28-32); MEAN CORPUSCULAR HGB CONC 32.5 g/dL (31-35); MEAN CORPUSCULAR VOLUME 91.2 fL (81-99); MONOCYTES % 5.6 % (4.4-11.3); NEUTROPHILS # (AUTO) 13.7 (2.1-6.9); NEUTROPHILS % 79.5 % (38.7-80.0); PLATELET COUNT 514 x10e3/uL (140-360); RED BLOOD COUNT 3.31 x10e6/uL (3.6-5.1); RED CELL DISTRIBUTION WIDTH 17.2 % (11.7-14.4)
[2019-08-04] MEDS ORDERED: FUROSEMIDE INJ 10 MG/ML 2 ML VIAL IV ONE (09:40)
[2019-08-04 09:59] LABS: INR 5.27; PROTHROMBIN TIME 49.2 seconds (11.9-14.5)
--- NOTE | 2019-08-04 09:59 | NUR ---
RECEIVED CALL FROM LAB REGARDING PT OF 49.2 AND INR OF 5.27 - DR. MATTHEW ON THE UNIT AND INFORMED OF THE LAB RESULTS. ROUNDED WITH DR. MATTHEW IN PATIENT'S ROOM- PATIENT AWARE OF LAB RESULTS AND COUMADIN WILL BE DECREASED TO 1 MG. DAILY CBC AND PT/INR LABS ORDERED. PATIENT STATED SHE IS WORKING ON GETTING INFORMATION TO BE SEEN IN THE MEDICAL CENTER- DR. MATTHEW INFORMED THE PATIENT IF THIS SITUATION OCCURS AGAIN FOR HER TO BE SEEN IN THE MEDICAL CENTER.
[2019-08-04 10:14] LABS: BAND NEUTROPHILS % (MANUAL) 1 %; EOSINOPHILS % (MANUAL) 2 % (0-7); LYMPHOCYTES % (MANUAL) 14 % (19-48); MONOCYTES % (MANUAL) 6 % (3.4-9.0); NEUTROPHILS % (MANUAL) 77 % (40-74)
[2019-08-04 10:16] LABS: ANISOCYTOSIS SLIGHT; OVALOCYTES FEW; POIKILOCYTOSIS SLIGHT; RBC MORPHOLOGY COMMENT ABNORMAL
[2019-08-04 10:17] LABS: PLATELET ESTIMATE MODERATELY INCREASED
[2019-08-04 10:18] LABS: PLATELET MORPHOLOGY COMMENT NORMAL
--- NOTE | 2019-08-04 11:24 | NUR ---
ASSESSMENT: Spiritual distress Pt emotionally numb. Pt states "I don't know what dying is supposed to feel like." Pt desires to fight illness by transferring to the [facility] but states "insurance is an obstacle." Pt feels unworthy of God's piotr. Intervention: Provided unhurried empathic listening and pastoral presence. Facilitated illness review and identification of emotions. Outcome: Pt expressed appreciation for support and requested daily visits. Will continue to follow as able. REA VERMA Track Superintendent Spiritual Care Department O: [phone] Pager: [phone] ([phone] number calling from)
--- NOTE | 2019-08-04 13:25 | NUR ---
MET W THE PT AT THE BEDSIDE TO DISCUSS DC PLANNING. PT STATES SHE HAS HER ADULT DTR AND SON AT HOME. STATES SHE HAS A WALKER AND A WALKING BOOT. STATES SHE MANAGES OK AT HOME FOR NOW. STATES SHE HAS NO OTHER NEEDS AT THIS TIME. PT IS ABLE TO GET UP TO THE BSC IN HER ROOM. STATES SHE DOES OK AT HOME WHILE HER DTR IS AT WORK AND SON IS AT SCHOOL. 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 DISCUSSED OTHER RESOURCES W THE PT. STATES SHE KNOWS ABOUT APPLYING FOR DISABILITY AND MEDICAID, BUT STILL WANTS TO EXHAUST EVERYTHING BEFORE GIVING UP. STATES SHE HAS BEEN EMAILING THE SOIL TESTER AT [facility] AND HAS BEEN LOOKING AT [facility]. STATES SHE KNOWS SHE WILL HAVE TO DC HERE TO GO THERE, BUT WANTED TO MAKE SURE SHE WAS ABLE TO GET HER INR'S DRAWN AT DR. MATTHEW'S OFFICE. OFFERED TO ASSIST W CALLING THE OFFICE NOW. THE PT STATES SHE WOULD CALL THE OFFICE HERSELF, BECAUSE THEY KNOW HER. PT STATED SHE KNEW SHE MAY HAVE TO GO AHEAD AND APPLY FOR HER DISABILITY, BUT WAS REALLY HOPING SHE COULD RETURN TO WORK. STATES SHE KEEPS IN TOUCH W HR AT [facility]. DISCUSSED THE ALTERNATIVES. PT WAS GIVEN THE CM'S CONTACT INFO. ENCOURAGED HER TO CALL ME WHEN SHE WAS READY TO TALK ABOUT OTHER OPTIONS IF SHE WOULD LIKE. THE PT VERBALIZED UNDERSTANDING AND WAS VERY APPRECIATIVE.
[2019-08-04] MEDS ORDERED: WARFARIN SOD 2 MG TAB PO SCH (17:00)
[2019-08-04] MEDS: WARFARIN SOD 1 MG TAB PO SCH (17:18)
--- NOTE | 2019-08-04 17:30 | Progress Note ---
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 The patient today had vaginal bleed. The hemoglobin today is 9.8, hematocrit 30.2, white count of 17,230, and platelets of 514,000. Blood cultures have been negative. Subsequently, a consultation with Dr. Gardner, an Infectious Disease marketing consultant was done. The patient was taken off the antibiotics by him. This, he thinks is because of blood transfusion. It also could be tumor fever. However, I will not be able to give her Naprosyn for the Naprosyn test because of the bleed and the anticoagulation with Coumadin. The patient's INR on 08/01 was 2.62. When the patient was started back on heparin, she had clotted off her left lower extremity with an INR of 1.65 in the past. The patient's INR today is 5.27. The INR on 08/02 was 3.55. The Coumadin was reduced to 4 mg to keep the INR about 4 on 08/03. The INR went up to 4.83. Subsequently, the Coumadin was decreased to 2 mg, it is 5.27 today. The Coumadin will be decreased to 1 mg. I had a discussion with her again one more time that because of her liver dysfunction, the INR is fluctuating so wide. However, if I do not keep the INR between 3.5 to 4, she will clot off the left lower extremity again, as she had done in the past. She again brought up the subject that she is working with her colleagues at the [facility] that she will have an answer today if she could be transferred if physician would accept her. Again, I did discuss with her that no one in the right mine will do a liver biopsy or lung biopsy or endometrial biopsy unless the INR brought down less than 1.5. However, if the INR was brought down 1.5, she will clot off the left lower extremity, as we had noticed before. She is refusing DNR. She is also refusing best supportive care. I will continue to follow her during this hospitalization. If the INR is 4, she could perhaps be discharged. Since she claims that there must be one way some way of biopsying the liver and treating her for massive liver metastases, she has sought medical attention down. I have also spoken to her since this is where she desires the next time she comes to the emergency room to go straight to the facility of her choice where she can get someone to take her over. MD KENDRA Lara/SAMIRA /[id number]
--- NOTE | 2019-08-04 18:46 | Progress Note ---
DATE: SUBJECTIVE: Ms. Sullivan is doing well. There is no new complaint. REVIEW OF SYSTEMS: HEENT: Negative. PULMONARY: Negative. CARDIAC: Negative. Her blood cultures and urine cultures are negative. She has no more fever. PHYSICAL EXAMINATION: GENERAL: She is alert, oriented, does not seem in acute distress. VITAL SIGNS: Stable. Currently afebrile. HEENT: She is not icteric. NECK: Supple. CHEST: Clear. HEART: S1, S2. No murmurs. ABDOMEN: Soft. IMPRESSION AND PLAN: Fever after blood transfusion, stable. Clinically, no need for antibiotic. Discussed with the patient. Discussed with Dr. Beyer. MD LALI Espitia/SAMIRA /[id number]
--- NOTE | 2019-08-04 19:15 | NUR ---
patient received awake, alert, lying quietly in bed. patient continues to c/o left foot pain. patient recently medicated with norco for pain. will continue to monitor. left foot elevated on pillow. pm assessment complete. patient instructed to call for assistance when needed.
--- NOTE | 2019-08-04 19:34 | NUR ---
PATIENT IS IN STABLE CONDITION WITH NO S/S OF RESPIRATORY DISTRESS. PAIN MEDICATION RECENTLY ADMINISTERED TO PATIENT. IV FLUIDS AND TELEMETRY APPLIED. CALL LIGHT IS WITHIN REACH, PATIENT INSTRUCTED TO CALL FOR ASSISTANCE NEEDED. REPORT GIVEN TO ONCOMING NURSE.
[2019-08-05] VITALS (8 sets, daily range): BP systolic 116–145; BP diastolic 62–84
[2019-08-05] MEDS: MORPHINE SULFATE INJ 4 MG/ML INJ 1ML IV PRN ×7 (00:20→20:56)
[2019-08-05] MEDS: HYDROCODONE/APAP 7.5MG-325MG 1 EA TAB PO PRN ×5 (03:00→22:38)
--- NOTE | 2019-08-05 06:00 | NUR ---
PT 53.2/INR 5.83 will give these labs to day shift nurse to be given to this am.
[2019-08-05 06:11] LABS: BASOPHILS # (AUTO) 0.1 (0.0-0.1); BASOPHILS % 0.3 % (0.0-1.0); EOSINOPHILS # (AUTO) 0.5 (0.0-0.4); EOSINOPHILS % 2.7 % (0.0-6.0); HEMATOCRIT 26.6 % (34.2-44.1); HEMOGLOBIN 8.7 g/dL (12.0-16.0); LYMPHOCYTES # (AUTO) 1.5 (1.0-3.2); LYMPHOCYTES % 8.3 % (18.0-39.1); MEAN CORPUSCULAR HEMOGLOBIN 29.5 pg (28-32); MEAN CORPUSCULAR HGB CONC 32.7 g/dL (31-35); MEAN CORPUSCULAR VOLUME 90.2 fL (81-99); MONOCYTES % 5.4 % (4.4-11.3); NEUTROPHILS # (AUTO) 14.3 (2.1-6.9); NEUTROPHILS % 78.7 % (38.7-80.0); PLATELET COUNT 578 x10e3/uL (140-360); RED BLOOD COUNT 2.95 x10e6/uL (3.6-5.1); RED CELL DISTRIBUTION WIDTH 16.8 % (11.7-14.4)
[2019-08-05 06:24] LABS: INR 5.83; PROTHROMBIN TIME 53.2 seconds (11.9-14.5)
--- NOTE | 2019-08-05 07:05 | NUR ---
PATIENT IS ALERT AND IN STABLE CONDITION WITH NO S/S OF RESPIRATORY DISTRESS. PATIENT C/O LEFT FOOT BASE PAIN 10/10. IV FLUIDS INFUSING. CALL LIGHT IS WITHIN REACH, PATIENT INSTRUCTED TO CALL FOR ASSISTANCE NEEDED.
[2019-08-05] MEDS: ASPIRIN 81 MG CHEW TAB PO SCH (07:29)
[2019-08-05] MEDS: CLOPIDOGREL BISULFATE 75 MG TAB PO SCH (07:29)
--- NOTE | 2019-08-05 11:36 | NUR ---
ASSESSMENT: Spiritual concern Follow up visit. Pt reflecting on life in light of illness. Pt states she gets her sense of resiliency from her mother. Intervention: Provided unhurried pastoral presence and empathic listening. Outcome: Pt requests follow up visit. REA VERMA Army Ranger Spiritual Care Department O: [phone] Pager: [phone] ([phone] number calling from)
[2019-08-05] MEDS ORDERED: MORPHINE SULFATE 2 MG/ML SYR 1ML IV PRN (13:30)
--- NOTE | 2019-08-05 14:32 | NUR ---
DR. MATTHEW INFORMED OF PATIENT'S CBC AND PT/INR TODAY. ORDER TO CONTINUE WITH COUMADIN 1 MG TODAY.
[2019-08-05] MEDS: WARFARIN SOD 1 MG TAB PO SCH (17:09)
--- NOTE | 2019-08-05 18:08 | NUR ---
DR. MATTHEW ON THE UNIT- ROUNDED WITH DR. MATTHEW IN PATIENT'S ROOM. PLAN FOR DISCHARGE IS TOMORROW ON 1 MG OF COUMADIN AND FOR PATIENT TO GO THE THE HOSPITAL OF HER CHOICE IN THE [facility] FOR A SECOND OPINION. LABS ORDERED FOR TOMORROW.
[2019-08-05] MEDS: SODIUM CHLORIDE 0.9% 1000ML 1,000 ML IV SCH (18:21)
--- NOTE | 2019-08-05 19:12 | NUR ---
PATIENT IS ALERT AND IN STABLE CONDITION WITH NO S/S OF RESPIRATORY DISTRESS. PAIN MEDICATION GIVEN TO THE PATIENT RECENTLY. IV FLUIDS INFUSING. CALL LIGHT IS WITHIN REACH, PATIENT INSTRUCTED TO CALL FOR ASSISTANCE NEEDED. REPORT GIVEN TO ONCOMING NURSE.
--- NOTE | 2019-08-05 19:41 | NUR ---
Received change of shift report from AM nurse. Walking rounds completed.
[2019-08-05] MEDS: ONDANSETRON HCL 4 MG ORAL DISINTEGRATING TAB PO PRN (20:56)
[2019-08-06] MEDS: MORPHINE SULFATE INJ 4 MG/ML INJ 1ML IV PRN ×7 (00:47→23:07)
[2019-08-06] MEDS: ONDANSETRON HCL 4 MG ORAL DISINTEGRATING TAB PO PRN ×2 (00:47→13:54)
--- NOTE | 2019-08-06 01:47 | Progress Note ---
DATE: 08/05/2019 Mellisa Khan is a 53-year-old female with massive lung liver metastases, possible endometrial cancer. The patient's INR today is 5.8 on 1 mg of Coumadin. I had the opportunity of observing this patient in the past with an INR of 3.8, skipping one day dose prior down to 1.65, and then the patient clotted off her left lower extremity arterial thrombus. I will still give her 1 mg of Coumadin today and the INR may go up. However, this is not allowing her to clot off the left lower extremity. It is almost impossible to regulate her INR because of massive liver metastasis and extremely poor liver functions with an albumin of 1.5. Her hemoglobin is [place] 8.7[place] [address], platelets of 578,000. I have asked her if she had two of his coworkers with her, if they could stay and she preferred them to stay with the nurse to document what we spoke. I did tell her again I will not be able to bring her INR down to 1.5 to really have any liver biopsy as my experience with her that she had clotted off the left lower extremity for four times. I also did tell her that if this was a venous thrombosis, I could have neutralize her INR, put a vena cava filter for the liver biopsy to avoid pulmonary embolus. However, this is arterial thrombus and it will cause gangrene of the left lower extremity complete gangrene. She already has gangrene of two digits from the previous clotting. She suggested to transfer her to a different facility where they could perhaps do something else. I did explain to her and the transfer law is such that two physicians have to talk, the physician on the other side has to accept, two of the hospitals have to talk and the other hospital has to accept with no insurance. I do not expect any hospital to accept her. However there definitely is an option if a physician will accept her, I will be more than happy to talk to the physician at length as to what went on so far . She wants to look at the numbers tomorrow and be discharged. She claims that she can perhaps go for a higher level of care some of the place then here. This would be sort of a second opinion, which I definitely want her to pursue as she still feels that the liver biopsy can be done there would be some way of doing the liver biopsy. Again, I have discussed again and again with her even today that if this was a venous thrombosis, this would have been possible, but since this is an arterial thrombosis and since she had clotted off the leg four times and this is absolutely not possible. If she has a terminal disease with massive liver metastases, lung metastases no endoscopies could be done, no biopsy of the uterus could be done because the patient cannot be kept below to for any kind of upper endoscopy, lower endoscopy, or even an endometrial biopsy. I will try to keep her as comfortable as I can. I have been honest with her regarding my incapability of trying to put her through any meaningful biopsies and our treatment. I have also discussed at length that because of metastases even with the biopsies were done is an incurable far advanced malignancy. Lior Beyer MD MAQ/MODL /[id number]
[2019-08-06] MEDS: HYDROCODONE/APAP 7.5MG-325MG 1 EA TAB PO PRN ×5 (02:46→22:09)
--- NOTE | 2019-08-06 04:00 | NUR ---
Patient receiving pain med every 3-4 hours. Meds given as ordered by .
[2019-08-06 04:59] VITALS: BP 133/85
[2019-08-06 07:00] LABS: BASOPHILS % 0.2 % (0.0-1.0); EOSINOPHILS # (AUTO) 0.4 (0.0-0.4); EOSINOPHILS % 2.2 % (0.0-6.0); HEMATOCRIT 25.6 % (34.2-44.1); HEMOGLOBIN 8.4 g/dL (12.0-16.0); LYMPHOCYTES # (AUTO) 1.5 (1.0-3.2); LYMPHOCYTES % 8.7 % (18.0-39.1); MEAN CORPUSCULAR HEMOGLOBIN 29.3 pg (28-32); MEAN CORPUSCULAR HGB CONC 32.8 g/dL (31-35); MEAN CORPUSCULAR VOLUME 89.2 fL (81-99); MONOCYTES # (AUTO) 0.9 (0.2-0.8); MONOCYTES % 5.3 % (4.4-11.3); NEUTROPHILS % 80.7 % (38.7-80.0); PLATELET COUNT 580 x10e3/uL (140-360); RED BLOOD COUNT 2.87 x10e6/uL (3.6-5.1); RED CELL DISTRIBUTION WIDTH 17.1 % (11.7-14.4)
[2019-08-06 07:23] LABS: INR 4.3
[2019-08-06 07:26] LABS: PROTHROMBIN TIME 42.1 seconds (11.9-14.5)
[2019-08-06 08:00] VITALS: BP 128/84
[2019-08-06] MEDS: ASPIRIN 81 MG CHEW TAB PO SCH (09:00)
[2019-08-06] MEDS: CLOPIDOGREL BISULFATE 75 MG TAB PO SCH (09:00)
[2019-08-06] MEDS: SODIUM CHLORIDE 0.9% 1000ML 1,000 ML IV SCH (10:47)
--- NOTE | 2019-08-06 10:51 | NUR ---
ASSESSMENT: Spiritual despair Pt overwhelmed by illness stating, "I don't feel like talking today...I need to talk to my family." Pt requested to visit at a later date. Pt expressed emotions thru tears and few words. Intervention: Provided empathic/supportive listening. Respected pt's desire to talk at a later time. Outcome: Will continue to follow as able. Followed up with [employer]. REA Ruizlain Spiritual Care Department O: [phone] C: [phone]
[2019-08-06 12:00] VITALS: BP 127/79
[2019-08-06 16:00] VITALS: BP 164/87
--- NOTE | 2019-08-06 16:49 | NUR ---
Nutrition Screen Note RD Recommendation for Physician: Continue diet as ordered Plan of Care: RD following, monitoring for tolerance and adequacy Nutrition reason for involvement: follow up Primary Diagnose(s):abdominal pain,anemia, coumadin toxicity PMH: Liver, lung metastasis Ht:67 in Wt:145lb BMI:22.7 kg/m2 IBW:135lb RD Assessment: (08/06/2019) Follow up. Pt reports a good appetite and has been eating >50% of meals. No N/V reported. Will continue to monitor. (07/31/2019) Chart reviewed. Labs and meds reviewed. Initial encounter with patient. Pt is on Warfarin and was able to give examples of foods that contain vitamin K. Pt with voluntary wt loss due to a wellness program. Pt denies any difficulty chewing or swallowing. Pt has chronic constipation. Pt denies any nausea or vomiting. Pt has no known food allergies Current Diet: Regular diet Malnutrition Evaluation (07/31/2019) The patient does not meet criteria for a specified degree of malnutrition at this time. Will re-evaluate at follow-up as appropriate. Diet Education Needs Assessment: Diet education not indicated. Nutrition Care Level: Low Signed: Linette Walls, RD, LD
[2019-08-06] MEDS: WARFARIN SOD 2 MG TAB PO SCH (17:06)
--- NOTE | 2019-08-06 17:28 | History and Physical ---
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 The patient's CBC today shows a hemoglobin of 8.4, hematocrit of 25.6, white count of 17,310, and platelets of 580,000. The patient's INR yesterday was 5.8. I had continued 1 mg of Coumadin as she drops off her INR fairly quickly. The patient's INR on 07/28 when she was admitted was 14.2, subsequently with 2.5 mg of subcutaneous vitamin K and the patient dropped down to 2.49 on 07/29 and 1.77 on 07/29. Subsequently, the patient was started back on heparin and Plavix and the patient's INR on 07/31 became 2.03 with Coumadin. This has been a pattern in her even skipping a day of Coumadin in the past had caused the patient to drop off the INR, however, continuing the dose in spite of adjustment brings her INR high enough to cause vaginal and rectal bleed. I have discussed at length #1 no code along with Laverne, the case management specialist and the nurse in my questionnaire in the presence of the patient in the room. I have also discussed possibility of hospice to think of hospice. Her argument was going in and discharged me and I will go to a clinic for PT/INR. My question again was who is going to dispense, who is going to watch her, will there be a physician taking care of her. If not if she clots off again or if she bleeds what will be this resource for which she had no answers. Basically again I have stressed hospice. She is going to talk to her sister. This sister wants her to have a PET scan, which I spoke to the patient that the PET scan is only a diagnostic test. PET scan is approximately 25,000 dollar. SPECT scans are not done Ondansetron. The patient has cancer done as outpatient since she does not have any insurance. No one is going to do a PET scan. Again, the information I will get from the PET scan will be not to any benefit as we know by the CAT scans we have done that she has metastases to the liver and metastases to the lungs. The primary has not been able to be confirmed as she cannot have an upper endoscopy and lower endoscopy and also from the uterine bleed a biopsy because AF in the INR is brought down for any meaningful biopsy as the patient will clot off her leg. Again, I stressed this is arterial thrombi. These are not venous thrombi. There was a venous thrombus in the left lower extremity. I could have put a vena cava filter and biopsied every organ again possible to look at this source. I have also again stressed that the INR cannot be brought down, she will clot off the leg. So far we have been cathy to have only gangrene of 2 digits, next time is going to be gangrene of the entire left lower extremity, which we may not be able to save. I have also stressed again 1 more time that the malignancy is far advanced that the malignancy is inoperable because of massive metastases. The malignancy is metastatic. The only palliative treatment would be systemic chemotherapy. However, systemic chemotherapy cannot be given unless a biopsy confirmation is done. The chemotherapy again would be palliation of symptoms and nothing else. There is no cure. At the most I will get stable disease or partial response for a few months. She refused to know about this survival. I will be more than happy to discuss the survival with her and the family. The daughter had asked this question before in my office, however, the patient refused to have it answered. The patient has to be taken care of, has to have a plan as to where she would go once she is discharged and who will take care. Because of far advanced malignancy, I strongly suggest hospice. Thank you. MD KENDRA Lara/MODValente /[id number]
--- NOTE | 2019-08-06 19:28 | NUR ---
SBAR report received from Lexie RN, patient seen lying in bed semi-fowlers position, AOX4, states pain level 6/10, patient made aware of PRN Pain medication schedule,, LFA IV patent, no s/sx of infiltration noted, right femoral triple lumen saline locked, no s/sx of infection, or infiltration denies pain at site, all personal belongings and personal items placed within reach, bed in lowest position, with bedside commode present, will continue to monitor
--- NOTE | 2019-08-06 19:46 | NUR ---
patient requesting to have new nurse placed on her services, CHANNING barry will be place on her service, SBAR report given to new nurse
--- NOTE | 2019-08-06 19:54 | NUR ---
Received report from previous nurse. Patient resting in bed, no s/s of distress at this time. All safety measures in place. Will continue to monitor.
[2019-08-06 20:00] VITALS: BP 125/77
--- NOTE | 2019-08-06 20:24 | NUR ---
Right femoral triple lumen cath dressing changed using sterile technique. Patient tolerated procedure. All lumen ports changed, flushing well, capped.
[2019-08-06 21:04] VITALS: BP 125/77
[2019-08-07] VITALS (7 sets, daily range): BP systolic 126–149; BP diastolic 72–92
[2019-08-07] MEDS: MORPHINE SULFATE INJ 4 MG/ML INJ 1ML IV PRN ×6 (02:01→20:32)
[2019-08-07] MEDS: HYDROCODONE/APAP 7.5MG-325MG 1 EA TAB PO PRN ×5 (03:43→23:19)
[2019-08-07] MEDS: SODIUM CHLORIDE 0.9% 1000ML 1,000 ML IV SCH (04:48)
[2019-08-07] MEDS: ONDANSETRON HCL 4 MG ORAL DISINTEGRATING TAB PO PRN (05:04)
--- NOTE | 2019-08-07 07:02 | NUR ---
Bedside report given to day nurse. Patient resting in bed, no s/s of distress at this time. All safety measures in place.
[2019-08-07 08:01] LABS: BASOPHILS % 0.2 % (0.0-1.0); EOSINOPHILS # (AUTO) 0.4 (0.0-0.4); EOSINOPHILS % 2.2 % (0.0-6.0); HEMATOCRIT 26.6 % (34.2-44.1); HEMOGLOBIN 8.7 g/dL (12.0-16.0); LYMPHOCYTES # (AUTO) 1.6 (1.0-3.2); LYMPHOCYTES % 7.8 % (18.0-39.1); MEAN CORPUSCULAR HEMOGLOBIN 29.4 pg (28-32); MEAN CORPUSCULAR HGB CONC 32.7 g/dL (31-35); MEAN CORPUSCULAR VOLUME 89.9 fL (81-99); NEUTROPHILS # (AUTO) 16.5 (2.1-6.9); NEUTROPHILS % 82.8 % (38.7-80.0); PLATELET COUNT 660 x10e3/uL (140-360); RED BLOOD COUNT 2.96 x10e6/uL (3.6-5.1); RED CELL DISTRIBUTION WIDTH 17.2 % (11.7-14.4)
[2019-08-07 08:21] LABS: INR 4.41; PROTHROMBIN TIME 42.9 seconds (11.9-14.5)
[2019-08-07] MEDS: ASPIRIN 81 MG CHEW TAB PO SCH (08:35)
[2019-08-07] MEDS: CLOPIDOGREL BISULFATE 75 MG TAB PO SCH (08:35)
--- NOTE | 2019-08-07 09:30 | NUR ---
Dr. De La Vega here for meeting with pt and family to discuss d/c planning. Family did not come to meeting. Dr. De La Vega recommended pt be discharged home with hospice. Pt refused hospice and states family will also refuse hospice. Dr. De La Vega discussed at length his concerns related to need of close INR/coumadin monitoring and not safe for her to discharge without a solid dc plan in place. Pt still refusing hospice.
--- NOTE | 2019-08-07 13:45 | NUR ---
Meeting with pt , Dr. De La Vega and the bedside nurse to discuss d/c plan. Dr. De La Vega had recommended hospice but pt had refused. Dr. De La Vega had asked her daughter to come this morning around 9.00 am to discuss the d/c plan, pt said she told her dtr and she had agreed but dtr did not come. Dr. De La Vega recommended hospice again and discussed his concerns in detail with pt but pt continued to refuse hospice.Pt said if it was to talk about hospice she was not going to agree either. SW will remain available to assist with d/c plan as appropriate.
[2019-08-07] MEDS: WARFARIN SOD 2 MG TAB PO SCH (16:31)
[2019-08-07] MEDS: LACTULOSE SYRUP 20 GM/30 ML UDC PO PRN (16:32)
--- NOTE | 2019-08-07 17:22 | History and Physical ---
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 I had a conference with the patient's family today at nine o'clock. I waited till 9:30, however, they did not show up. I was told by the patient that her cannot show up because he had orientation. Her sister was supposed to show up, did not show up. The daughter did not show up. She called the daughter again right in front of me and Lexie, the nurse and Abdullahi, the social research assistant, however, as for her it went straight to her voicemail. The patient's CBC today shows a hemoglobin of 8.7, hematocrit 26.6, white count of 19,920, and platelets of 660,000. The thrombocythemia is secondary to the underlying malignancy. Her blood cultures have been negative so far, the last one was done on 07/04/2019. Urine culture is done on 07/28 and 912 three, have been reported negative. The patient was on antibiotics, however, these were taken off by Infectious Disease customer service and sales consultant as he did not think that there was any infection. He thinks it could be tumor fever and/or the blood transfusion reaction. The patient's INR today is 4.41 on 2 mg of Coumadin and the patient is off heparin. The patient is still on Plavix and aspirin to avoid any more arterial thrombi. The patient does have 4+ pitting edema of the feet and this is because of an extremely low albumin of 1.6, reflecting the patient's inability because of massive liver metastases. SGOT high at 310, alkaline phosphatase high at 337. The calcium is low also at 7.7. Because of the hypoalbuminemia, sodium is low at 127 possible in inappropriate ADH secretion. This was all discussed at length with the patient. She again said "I have not thrown the towel, I still wonder treatment, I am not accepting hospice." She also said that "if you think my daughter would have had yes hospice and discharge you were mistaken." The immense problem is that she is not excepting massive liver metastases, lung metastases, a high CEA, inability to do a liver biopsy for any meaningful treatment as dictated multiple times. The patient's legs will clot off the moment I try to neutralize the Coumadin as had happened with a low INR before of 1.65. She is refusing hospice. She wants me to discharge her as she claims that she can either go to a clinic, which monitors the and/or claims that her sister has communicated with her that her sister has a hospitality coordinator in [place] who is monitoring her Coumadin and then she will try to get an appointment with the physician to monitor the Coumadin. I cannot rely on the possibility that she might be accepted by a hospitality coordinator for monitoring the Coumadin. I have to communicate with the physician to see if the physician will accept. I cannot discharge her unless a decent followup by a hospitality coordinator oncologist is forthcoming. She refuses hospice and to take the responsibility herself, sign out against medical advice because I cannot discharge her with so many problems which she has for a thorough followup. I have advised both the social research assistant as well as a nurse who has gone with me to make sure that they document the conversation we had. MD KENDRA Lara/SAMIRA /[id number]
--- NOTE | 2019-08-07 19:11 | NUR ---
Received bedside report from day nurse. Patient resting in bed, no s/s of distress at this time. All safety measures in place. Will continue to monitor.
[2019-08-08] VITALS: BP 130/85
[2019-08-08] MEDS: MORPHINE SULFATE INJ 4 MG/ML INJ 1ML IV PRN ×7 (01:00→23:25)
[2019-08-08] MEDS: ONDANSETRON HCL 4 MG ORAL DISINTEGRATING TAB PO PRN ×2 (01:00→23:25)
[2019-08-08] MEDS: SODIUM CHLORIDE 0.9% 1000ML 1,000 ML IV SCH (01:37)
[2019-08-08 04:00] VITALS: BP 161/92
[2019-08-08] MEDS: HYDROCODONE/APAP 7.5MG-325MG 1 EA TAB PO PRN ×5 (04:08→22:30)
[2019-08-08 07:22] LABS: BASOPHILS % 0.1 % (0.0-1.0); EOSINOPHILS # (AUTO) 0.4 (0.0-0.4); EOSINOPHILS % 1.8 % (0.0-6.0); HEMATOCRIT 26.6 % (34.2-44.1); HEMOGLOBIN 8.7 g/dL (12.0-16.0); LYMPHOCYTES # (AUTO) 1.5 (1.0-3.2); LYMPHOCYTES % 7.2 % (18.0-39.1); MEAN CORPUSCULAR HEMOGLOBIN 29.5 pg (28-32); MEAN CORPUSCULAR HGB CONC 32.7 g/dL (31-35); MEAN CORPUSCULAR VOLUME 90.2 fL (81-99); MONOCYTES % 4.7 % (4.4-11.3); NEUTROPHILS # (AUTO) 17.5 (2.1-6.9); NEUTROPHILS % 84.8 % (38.7-80.0); PLATELET COUNT 669 x10e3/uL (140-360); RED BLOOD COUNT 2.95 x10e6/uL (3.6-5.1); RED CELL DISTRIBUTION WIDTH 17.2 % (11.7-14.4)
[2019-08-08 07:30] LABS: INR 4.72
[2019-08-08 07:35] LABS: PROTHROMBIN TIME 45.2 seconds (11.9-14.5)
[2019-08-08 08:00] VITALS: BP 131/74
[2019-08-08] MEDS: CLOPIDOGREL BISULFATE 75 MG TAB PO SCH (08:10)
[2019-08-08] MEDS: ASPIRIN 81 MG CHEW TAB PO SCH (08:10)
[2019-08-08] MEDS ORDERED: ALBUMIN 25% 12.5GM 0.25 GM/ML BTL IV ONE (09:30)
[2019-08-08] MEDS ORDERED: FUROSEMIDE INJ 10 MG/ML 2 ML VIAL IV ONE (09:30)
[2019-08-08 11:04] LABS: ALANINE AMINOTRANSFERASE 20 IU/L (0-55); ALBUMIN/GLOBULIN RATIO 0.3 (0.8-2.0); ALKALINE PHOSPHATASE 452 IU/L (40-150); ANION GAP 14.8 mmol/L (8-16); BLOOD UREA NITROGEN 5 mg/dL (7-26); BUN/CREATININE RATIO 12 (6-25); CALCIUM 7.5 mg/dL (8.4-10.2); CARBON DIOXIDE 27 mmol/L (22-29); CHLORIDE 96 mmol/L (98-107); CREATININE, SERUM 0.41 mg/dL (0.57-1.11); EST GLOMERULAR FILTRATION RATE > 60 ML/MIN (60-); GLUCOSE 96 mg/dL (74-118); SODIUM 135 mmol/L (136-145)
[2019-08-08 11:05] LABS: POTASSIUM 2.8 mmol/L (3.5-5.1)
[2019-08-08 12:00] VITALS: BP 133/83
[2019-08-08] MEDS ORDERED: POTASSIUM CHLORIDE 20 MEQ TAB CR PO ONE (12:00)
--- NOTE | 2019-08-08 12:10 | NUR ---
Notified Dr. Beyer of lab results and received orders for IV potassium 60mEq and recheck labs in the morning.
[2019-08-08] MEDS ORDERED: POTASSIUM CHLORIDE 20MEQ/100ML 300 ML IV ONE (13:00)
[2019-08-08 16:00] VITALS: BP 124/73
--- NOTE | 2019-08-08 16:09 | Progress Note ---
DATE: 08/08/2019 Mellisa Sullivan is a 53-year-old female with arterial thrombosis of left lower extremity. The patient's swelling of lower extremities is 4+ today. I discussed at length with her this is because of the low albumin of 1.6, total protein is 5.1, this is because of massive liver metastases. I have also discussed with her that her sodium runs low at 127 on 07/30, this is because of inappropriate ADH secretion because of the underlying malignancy. I have ordered Lasix and albumin. Also, I did tell her that the Lasix may decrease the sodium more. If goes less than 120, there is a chance that she might get seizures. I have also communicated with her regarding the INR today of 4.7, it was 4.4 yesterday. I will decrease the Coumadin to 1 mg a day. This is going to be a struggle to keep adjusting the Coumadin because of massive liver metastases and high liver functions. I will also do an ammonia level today and a CMP again. The sister has been nor the daughter came for the 9 o'clock conference yesterday. In a.m., I was told by Lexie, the nurse, who has accompanied me this weekend for documentation and for my physical exam in presence of a female nurse, I was told that the sister came, but had no communication regarding the transfer. I brought up the subject of finding another diamond finishing supervisor, which she wanted since she claims "something could be done regarding liver biopsy." I have repeatedly said that the moment we bring the INR down, she is going to clot off the left leg and no one in the right mind is going to do liver biopsy or an EGD or colonoscopy or endometrial biopsy nor lung biopsy. She keeps insisting there must be something which could be done. I think we have exhausted any other resource because I have been told many times that the family is in communication with other physicians for possible transfer, however, this has not happened. As I had predicted, since no one will take responsibility of a terminally ill patient with multitude of problems. Still a full code. Still refuses hospice. I have been told by her yesterday and even today that Friday her sister is going to call her own diamond finishing supervisor to take over or at least monitoring the Coumadin and keeping the INR to a level where she will not clot. The digits of her left lower extremity are more gangrenous, now 3 of them, these are dry gangrene. As the patient is terminally ill, I certainly hope that the family and her will decide reasonable decision as no code as well as hospice. I will continue to render the best supportive care to this patient and the family, who has expectations which are unreal. An ammonia level and CMP are ordered today. I have ordered Lasix and albumin today. However, this is a temporary measure. Prognosis remains extremely poor. MD KENDRA Lara/MODL /[id number]
[2019-08-08] MEDS: WARFARIN SOD 2 MG TAB PO SCH (17:19)
[2019-08-08] MEDS: NYSTATIN SUSPENSION 5 ML UDC PO SCH (18:17)
[2019-08-08] MEDS: FLUCONAZOLE 400MG/200ML BAG 200 ML IV SCH (19:20)
[2019-08-08 20:00] VITALS: BP 126/74
--- NOTE | 2019-08-08 20:00 | NUR ---
INITIAL ASSESSMENT COMPLETE, CALL LIGHT IN REACH, RIGHT LEG UP ON PILLOWS WITH 3+ EDEMA NOTED, LEFT LEG UP ON PILLOWS, NECROTIC TOES AND BOTTOM OF FOOT, PULSES ONLY FOUND WITH DOPPLER, PULSES PRESESENT, RIGHT FEMORAL CENTRAL LINE IN PLACE, TELE ON PT, NO OTHER NEEDS AT THIS TIME, PT C/O PAIN TO LEFT FOOT WHEN PAIN HITS, TOLD TO CALL FOR NEEDS
--- NOTE | 2019-08-08 23:50 | NUR ---
PT UP TO BED SIDE COMMODE WITH ASSISTANCE, THEN BACK TO BED WITH ASSISTANCE, URINE ONLY, CALL LIGHT IN REACH,
[2019-08-09] VITALS (7 sets, daily range): BP systolic 112–151; BP diastolic 66–95
[2019-08-09] MEDS: MORPHINE SULFATE INJ 4 MG/ML INJ 1ML IV PRN ×5 (02:35→19:36)
[2019-08-09] MEDS: HYDROCODONE/APAP 7.5MG-325MG 1 EA TAB PO PRN ×5 (03:30→22:18)
[2019-08-09] MEDS: ONDANSETRON HCL 4 MG ORAL DISINTEGRATING TAB PO PRN ×3 (05:45→17:25)
[2019-08-09] MEDS: NYSTATIN SUSPENSION 5 ML UDC PO SCH ×5 (06:00→23:41)
--- NOTE | 2019-08-09 06:11 | NUR ---
labs drawn from femoral central line, up to bsc and back to bed with assist, medications given, call light in reach
[2019-08-09 06:18] LABS: BASOPHILS % 0.2 % (0.0-1.0); EOSINOPHILS # (AUTO) 0.4 (0.0-0.4); HEMATOCRIT 26.8 % (34.2-44.1); HEMOGLOBIN 8.6 g/dL (12.0-16.0); LYMPHOCYTES # (AUTO) 1.6 (1.0-3.2); LYMPHOCYTES % 7.7 % (18.0-39.1); MEAN CORPUSCULAR HEMOGLOBIN 28.9 pg (28-32); MEAN CORPUSCULAR HGB CONC 32.1 g/dL (31-35); MEAN CORPUSCULAR VOLUME 89.9 fL (81-99); MONOCYTES % 4.9 % (4.4-11.3); NEUTROPHILS # (AUTO) 17.1 (2.1-6.9); NEUTROPHILS % 83.9 % (38.7-80.0); PLATELET COUNT 751 x10e3/uL (140-360); RED BLOOD COUNT 2.98 x10e6/uL (3.6-5.1); RED CELL DISTRIBUTION WIDTH 17.1 % (11.7-14.4)
[2019-08-09 06:29] LABS: INR 4.42
[2019-08-09 06:51] LABS: ALANINE AMINOTRANSFERASE 20 IU/L (0-55); ALBUMIN 1.2 g/dL (3.5-5.0); ALBUMIN/GLOBULIN RATIO 0.3 (0.8-2.0); ALKALINE PHOSPHATASE 500 IU/L (40-150); BLOOD UREA NITROGEN < 5 mg/dL (7-26); CALCIUM 7.5 mg/dL (8.4-10.2); CARBON DIOXIDE 29 mmol/L (22-29); CHLORIDE 95 mmol/L (98-107); CREATININE, SERUM 0.45 mg/dL (0.57-1.11); EST GLOMERULAR FILTRATION RATE > 60 ML/MIN (60-); GLUCOSE 101 mg/dL (74-118); SODIUM 133 mmol/L (136-145)
[2019-08-09 06:52] LABS: BUN/CREATININE RATIO 11 (6-25)
--- NOTE | 2019-08-09 07:14 | NUR ---
PATIENT UP IN BED WATCHING TV, NO DISTRESS NOTED. +3 EDEMA TO LOWER EXTREMITIES, ELEVATED ON PILLOW , 3 NECROTIC TOES TO LEFT FOOT. BED IN LOWER POSITION, CALL LIGHT AT REACH.
[2019-08-09] MEDS: SODIUM CHLORIDE 0.9% 1000ML 1,000 ML IV SCH ×2 (07:30→12:24)
[2019-08-09] MEDS: CLOPIDOGREL BISULFATE 75 MG TAB PO SCH (09:09)
[2019-08-09] MEDS: ASPIRIN 81 MG CHEW TAB PO SCH (09:09)
[2019-08-09] MEDS: LACTULOSE SYRUP 20 GM/30 ML UDC PO PRN (09:32)
--- NOTE | 2019-08-09 10:19 | NUR ---
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 Pt states she is even more resolved following the weekend after visits from friends. Intervention: Provided unhurried pastoral presence and non-judgmental listening. Facilitated conversation about illness, emotions and spirituality. Provided prayer. Outcome: Pt requests follow up visit. Followed up with RN and CM. REA [facility] Spiritual Care Department O: [phone] Pager: [phone] ([phone] number calling from)
[2019-08-09] MEDS ORDERED: ALBUMIN 25% 12.5GM 0.25 GM/ML BTL IV ONE (10:30)
--- NOTE | 2019-08-09 10:46 | NUR ---
SPOKE WITH MD REGARDING ABNORMAL LAB RESULT, NEW ORDER RECEIVED.
[2019-08-09] MEDS ORDERED: POTASSIUM CHLORIDE 20MEQ/100ML 300 ML IV ONE (11:00)
[2019-08-09] MEDS ORDERED: ALBUMIN 25% 12.5GM 50ML 50 ML IV ONE (11:00)
[2019-08-09] MEDS ORDERED: FUROSEMIDE INJ 10 MG/ML 2 ML VIAL IV ONE (11:30)
--- NOTE | 2019-08-09 11:57 | NUR ---
CM ROUNDED WITH DR MATTHEW ON THIS PT THIS AM CHAPLAIN LUCIA IN ROOM SPEAKING WITH PT PT SITTING UP IN CHAIR, AWAKE AND ALERT PT STATES SHE IS CALLING "DR ABBOTT ON [address]" TO SEE IF HE WILL ASSUME RESPONSIBILITY OF HER AND HER MEDICAL CONDITION UPON DISCHARGE DR MATTHEW AGAIN SPOKE WITH PT ABOUT HER TERMINAL CONDITION AND PT AGAIN RESPONDED "I WANT TO BE A FULL CODE AND WANT TO CONTINUE TO FIGHT" PER REA WHEN HE SPOKE WITH PT THIS MORNING SHE IS "EVEN MORE DETERMINED AFTER THIS WEEKEND TO KEEP FIGHTING" CASE REVIEWED WITH DR ABBOTT
--- NOTE | 2019-08-09 12:45 | History and Physical ---
Rounds Report Mellisa Sullivan is a 53-year-old white female with massive lung and liver metastases. The Chapel was in the room. I had suggested him to stay in the room. She was going to give me the name of a ventilated rib fitter, whom she said has managed the Coumadin of her sister and he is a ventilated rib fitter at [facility]. Today, she says he is at [place]. Today, she said that Dr. Abdullahi is her ventilated rib fitter. He has taken care of her for the last 30 years, that she will call Dr. Abdullahi today to see if he will accept her as a patient for continuation of care. I again asked her in front of the Chapel, Ervin, the nurse and Laverne, the leather case finisher if she still wants to be a full code, she said yes and if she still is refusing hospice, she said yes. I have explained to her that her albumin is only 1.2 today, total protein is 4.9, and potassium is 3.0. I have given her 60 mEq of potassium yesterday. It was 3.7 on 07/30. I will give her 60 mEq of potassium today. Again, I will give her the Lasix and albumin today, as she has 4+ pitting edema of the feet, but most of this is because of the liver metastases. Her alkaline phosphatase has gone up to 500. The gangrene of the left 3 toes still remain the same. Until she finds a physician, who will accept her, I will continue to give her the best supportive care only, as her malignancy cannot be treated, as it cannot be biopsied. She has tried as she claims to have someone in [facility] to accept her. However, she has not come up with a name I could speak to transfer the care. I will continue to follow her until she finds a physician, who will accept for multitude of reasons, which I have documented before. 1. She cannot have a liver biopsy, as the moment we try to really get the INR down to get the biopsy can be done, the patient will clot off the left lower extremity. 2. She is terminally ill. 3. She is not accepting hospice. 4. She is not excepting a no code. Prognosis remains extremely poor. As being very challenging to even have the family get together, as I had advised the family conference and no one showed up this weekend. MD KENDRA Lara/SAMIRA /[id number]
--- NOTE | 2019-08-09 12:50 | NUR ---
SPOKE WITH PT TO GET CHOICE FOR HOSPICE EDUCATION, SHE STATES SHE FEELS THAT SHE IS BEING BULLIED TO THE POINT THAT SHE DOES NOT WANT DR ABBOTT TO CONTINUE HER CARE, SHE GOES ON TO STATE SHE HAS A CALL OUT TO DR ABBOTT OFFICE TO SEE IF HE WILL PICK HER CARE BECAUSE SHE FEELS WE ARE FORCING HER TO GO HOME AND STOP TREATMENT OR WITH HOSPICE. SHE STATES SHE FEELS THAT OUR ONLY OBJECTIVE IS TO GET HER OUT OF HERE AND FEELS FORCED. I LET HER KNOW THAT WOULD DOCUMENT AND IF SHE HAS ANY OTHER QUESTION TO PLEASE LET ME KNOW.
--- NOTE | 2019-08-09 15:14 | NUR ---
PATIENT ASSISTED TO BED SIDE COMMODE AND BACK TO RECLINING CHAIR. CALL LIGHT AT REACH.
[2019-08-09] MEDS: WARFARIN SOD 2 MG TAB PO SCH (17:38)
[2019-08-09] MEDS: FLUCONAZOLE 400MG/200ML BAG 200 ML IV SCH (18:14)
--- NOTE | 2019-08-09 19:21 | NUR ---
Received change of shift report from AM. Walking rounds completed.
--- NOTE | 2019-08-09 19:53 | NUR ---
Patient c/o pain =6-7 to abd. Given Pain meds as ordered by . Tara at bedside.
[2019-08-10] VITALS (7 sets, daily range): BP systolic 119–132; BP diastolic 72–83
[2019-08-10] MEDS: ONDANSETRON HCL 4 MG ORAL DISINTEGRATING TAB PO PRN ×3 (00:28→23:11)
[2019-08-10] MEDS: MORPHINE SULFATE INJ 4 MG/ML INJ 1ML IV PRN ×7 (00:29→23:11)
[2019-08-10] MEDS: HYDROCODONE/APAP 7.5MG-325MG 1 EA TAB PO PRN ×5 (02:34→21:29)
[2019-08-10] MEDS: NYSTATIN SUSPENSION 5 ML UDC PO SCH ×4 (05:37→17:11)
--- NOTE | 2019-08-10 05:54 | NUR ---
Patient c/o pain every 3-4 hours. Meds given as ordered
[2019-08-10 06:13] LABS: BASOPHILS % 0.2 % (0.0-1.0); EOSINOPHILS # (AUTO) 0.4 (0.0-0.4); EOSINOPHILS % 2.1 % (0.0-6.0); HEMATOCRIT 24.6 % (34.2-44.1); HEMOGLOBIN 7.9 g/dL (12.0-16.0); LYMPHOCYTES # (AUTO) 1.5 (1.0-3.2); LYMPHOCYTES % 8.2 % (18.0-39.1); MEAN CORPUSCULAR HGB CONC 32.1 g/dL (31-35); MEAN CORPUSCULAR VOLUME 90.4 fL (81-99); MONOCYTES # (AUTO) 0.9 (0.2-0.8); MONOCYTES % 4.9 % (4.4-11.3); NEUTROPHILS # (AUTO) 15.4 (2.1-6.9); NEUTROPHILS % 83.5 % (38.7-80.0); PLATELET COUNT 648 x10e3/uL (140-360); RED BLOOD COUNT 2.72 x10e6/uL (3.6-5.1); RED CELL DISTRIBUTION WIDTH 17.5 % (11.7-14.4)
[2019-08-10 06:27] LABS: INR 4.98
[2019-08-10 06:32] LABS: ALANINE AMINOTRANSFERASE 17 IU/L (0-55); ALBUMIN 1.2 g/dL (3.5-5.0); ALBUMIN/GLOBULIN RATIO 0.4 (0.8-2.0); ALKALINE PHOSPHATASE 498 IU/L (40-150); ANION GAP 12.1 mmol/L (8-16); BLOOD UREA NITROGEN < 5 mg/dL (7-26); CALCIUM 7.3 mg/dL (8.4-10.2); CARBON DIOXIDE 29 mmol/L (22-29); CHLORIDE 97 mmol/L (98-107); CREATININE, SERUM 0.48 mg/dL (0.57-1.11); EST GLOMERULAR FILTRATION RATE > 60 ML/MIN (60-); GLUCOSE 96 mg/dL (74-118); POTASSIUM 3.1 mmol/L (3.5-5.1); SODIUM 135 mmol/L (136-145)
[2019-08-10 06:35] LABS: PROTHROMBIN TIME 47.1 seconds (11.9-14.5)
[2019-08-10 06:37] LABS: BUN/CREATININE RATIO 10 (6-25)
[2019-08-10] MEDS: SODIUM CHLORIDE 0.9% 1000ML 1,000 ML IV SCH (07:39)
[2019-08-10] MEDS: CLOPIDOGREL BISULFATE 75 MG TAB PO SCH (08:32)
[2019-08-10] MEDS: ASPIRIN 81 MG CHEW TAB PO SCH (08:32)
--- NOTE | 2019-08-10 10:45 | NUR ---
ASSESSMENT: Spiritual distress Follow up visit. Pt states she doesn't like "not being in control" as in being under anesthesia. Following visit from physician and team, pt requested drywall carrier return "in the morning" for a follow up visit. Intervention: Provided unhurried pastoral presence and facilitated conversation conversation. Outcome: Will continue to follow as able. REA VERMA Dewer Spiritual Care Department O: [phone]
[2019-08-10] MEDS ORDERED: POTASSIUM CHLORIDE 20MEQ/100ML 300 ML IV ONE (11:00)
--- NOTE | 2019-08-10 12:28 | NUR ---
PER REQUEST PROVIDED [employer] CARD APPLICATION.
--- NOTE | 2019-08-10 16:19 | NUR ---
TEAM ROUNDED ON PT; CM X2, DR Danna REES, BEDSIDE RN / LILLIAN, AND SERVICE SPRINKLER HELPER / REA TO DISCUSS DC PLAN. DR. REES EXPLAINED PROGNOSIS WITH THE PT. DISCUSSED OUTCOME IF COUMADIN WAS STOPPED AND LEG CLOTTING OFF. ALSO EXPLAINED VERY HIGH RISK FOR LIVER BIOPSY TO THE PT. PT STATES SHE WOULD LIKE A 2ND OPINION. DISCUSSED [facility] TO MANAGE PT'S CARE. PT STATES SHE HAD NOT HEARD ABOUT THIS AN OPTION. PT STILL REFUSING HOSPICE AND DOC'S RECOMMENDATION. STATES SHE WOULD LIKE TO BE FOLLOWED BY A DOCTOR'S OFFICE OR CLINIC EVERY OTHER DAY FOR INR'S. STATES SHE WOULD LIKE TO GET HER COUMADIN AND LABS IN THE AM AND WILL THEN LEAVE AMA. CM OFFERED ASSISTANCE W OBTAINING INFO FOR GOLD CARD. INFORMED SHE RECEIVED UPON ADMISSION, BUT WILL HAVE THE BIOLOGY ADJUNCT INSTRUCTOR OR CM RETURN W GOLD CARD APPLICATION. ALSO INFORMED PT SHE CAN APPLY FOR A GOLD CARD ONLINE IF SHE HAS ACCESS TO A COMPUTER. STATES SHE WILL APPLY. AGAIN OFFERED ASSISTANCE W ANY OTHER RESOURCES, BUT THE PT DECLINED. WILL F/U TO ASSIST W DC TOMORROW.
[2019-08-10] MEDS: WARFARIN SOD 2 MG TAB PO SCH (17:00)
[2019-08-10] MEDS: FLUCONAZOLE 400MG/200ML BAG 200 ML IV SCH (17:11)
--- NOTE | 2019-08-10 17:44 | History and Physical ---
Mellisa Sullivan is a 53-year-old female with left leg arterial thrombosis multiple times. For detailed history and physical please review my initial history and physical of this admission. I had again a long conversation again today with the patient, Laverne Johnson, another binder caser, the nuclear medicine pet ct technologist of this hospital and the nurse, who is taking care of her today, discussed INR being 4.9. I will continue 1 mg. Discussed again inability for her to obtain any travel service consultant as an outpatient. She wants a 2nd opinion, which I do want her to have. I have again discussed at length that no one will be able to biopsy the liver as if the INR was brought down to less than 1.6 she will clot off the left leg. Again I explained that if this was venous thrombosis, it would have been a different thing that we would put a vena cava filter and do the biopsy. I also discussed the kinetics of cancer that cancer starts with one cancer cell, one to two, two means tumor doubling time, most tumors have a tumor doubling time of a month, if the tumor doubles to 1 cm it has gone through 30 doublings, 30 doublings means 30 months, which is close to 3 years, but even if someone could do a biopsy then the treatment and this is an incurable cancer. I have again suggested a no code, she wants a full code. Again suggested hospice, she does not want to go to hospice. She had explained yesterday that her sister's physician is Dr. Petar Abdullahi and that she will call Dr. Abdullahi to get an appointment. Today she tells me that one of the nursing supervisor keymodule assembly here by name Grace had called Dr. Abdullahi personally that he was not available. She claims that I should talk to Grace that she made the phone call. It is very difficult to convince her that she has a terminal disease. She still wants to be treated. It is very difficult to convince her that she needs to be a no code and also that hospice would be the right way since no one will be able to do the biopsy of the liver and treat her as the leg will clot off. Her potassium is 3.1 today, I will give her some potassium. Again her INR is 4.98, it was 4.42 yesterday. I will continue 1 mg of Coumadin. Her hemoglobin today is 7.9. She is asymptomatic and does not require any blood transfusion. The platelets are going up secondary to the underlying malignancy. I will continue to follow up until she acquires a different physician, who could give her a different perspective of the underlying problem she has, which she does want to. MD KENDRA Lara/SAMIRA /[id number]
[2019-08-10 19:22] LABS: ANION GAP 13.2 mmol/L (8-16); BLOOD UREA NITROGEN < 5 mg/dL (7-26); CALCIUM 7.5 mg/dL (8.4-10.2); CARBON DIOXIDE 27 mmol/L (22-29); CHLORIDE 98 mmol/L (98-107); CREATININE, SERUM 0.59 mg/dL (0.57-1.11); EST GLOMERULAR FILTRATION RATE > 60 ML/MIN (60-); GLUCOSE 138 mg/dL (74-118); POTASSIUM 4.2 mmol/L (3.5-5.1); SODIUM 134 mmol/L (136-145)
[2019-08-10 19:24] LABS: BUN/CREATININE RATIO 8 (6-25)
--- NOTE | 2019-08-10 20:00 | NUR ---
Received change of shift report from AM nurse. Walking rounds completed.
--- NOTE | 2019-08-10 22:06 | NUR ---
Patient c/o pain. pain meds given as ordered by MD. Continue monitor.
[2019-08-11] VITALS (8 sets, daily range): BP systolic 103–153; BP diastolic 56–89
[2019-08-11] MEDS: MORPHINE SULFATE INJ 4 MG/ML INJ 1ML IV PRN ×7 (03:03→23:25)
[2019-08-11] MEDS: ONDANSETRON HCL 4 MG ORAL DISINTEGRATING TAB PO PRN ×4 (03:03→23:25)
[2019-08-11] MEDS: HYDROCODONE/APAP 7.5MG-325MG 1 EA TAB PO PRN ×4 (04:23→21:17)
[2019-08-11] MEDS: NYSTATIN SUSPENSION 5 ML UDC PO SCH ×5 (05:14→23:25)
[2019-08-11] MEDS: SODIUM CHLORIDE 0.9% 1000ML 1,000 ML IV SCH (05:14)
[2019-08-11] MEDS: CLOPIDOGREL BISULFATE 75 MG TAB PO SCH (08:10)
[2019-08-11] MEDS: ASPIRIN 81 MG CHEW TAB PO SCH (08:10)
[2019-08-11] MEDS: LACTULOSE SYRUP 20 GM/30 ML UDC PO PRN (09:10)
--- NOTE | 2019-08-11 10:13 | NUR ---
Dr Beyer here for rounds, patient stated she is not feel good to be discharged,she stated she want to work with physical therapy before she discharge, New orders revcd from Dr Beyer
[2019-08-11 10:33] LABS: INR 3.83; PROTHROMBIN TIME 38.5 seconds (11.9-14.5)
--- NOTE | 2019-08-11 11:15 | NUR ---
ASSESSMENT: Spiritual concern Follow up visit. Pt reflecting on significant people (late mother, children, professionals) and stevie. Pt states her children are "everything" to her. Intervention: Facilitated life review. Provided unhurried empathic listening. Provided prayer. Outcome: Will continue follow as able. Pt expressed appreciation for support as "highlight" of her day. REA VERMA Active Directory Specialist Spiritual Care Department O: [phone]
--- NOTE | 2019-08-11 12:12 | NUR ---
PT/INR result notified Dr Beyer, new order to continue Coumadin 1mg daily
[2019-08-11 12:26] LABS: ALANINE AMINOTRANSFERASE 18 IU/L (0-55); ALBUMIN 1.3 g/dL (3.5-5.0); ALBUMIN/GLOBULIN RATIO 0.3 (0.8-2.0); ALKALINE PHOSPHATASE 595 IU/L (40-150); ANION GAP 15.6 mmol/L (8-16); BLOOD UREA NITROGEN < 5 mg/dL (7-26); CALCIUM 7.9 mg/dL (8.4-10.2); CARBON DIOXIDE 27 mmol/L (22-29); CHLORIDE 98 mmol/L (98-107); CREATININE, SERUM 0.49 mg/dL (0.57-1.11); EST GLOMERULAR FILTRATION RATE > 60 ML/MIN (60-); GLUCOSE 100 mg/dL (74-118); POTASSIUM 3.6 mmol/L (3.5-5.1); SODIUM 137 mmol/L (136-145)
[2019-08-11 12:28] LABS: BUN/CREATININE RATIO 10 (6-25)
--- NOTE | 2019-08-11 15:08 | NUR ---
CM ROUNDED WITH DR MATTHEW TODAY ON THIS PT PT SITTING UP IN CHAIR AT BEDSIDE WITH LEGS ELEVATED DR MATTHEW INFORMED PT THAT HE HAS SPOKEN WITH DR ABBOTT AND HE IS AGREEABLE TO FOLLOW PT IN HIS OFFICE IMMEDIATELY UPON DISCHARGE CM CALLED DR ABBOTT AND CONFIRMED THAT HE IS WILLING TO ACCEPT PT OP IN HIS OFFICE CM CALLED AND MADE APPT WITH DONNELL AT DR REAVES OFFICE ; APPT 1PM TODAY PLAN WAS FOR DC TODAY UPON ROUNDS, DR MATTHEW EXPLAINED TO PT THAT DR ABBOTT WILL FOLLOW HER UPON DISCHARGE AND THAT WE HAVE MADE AN APPT FOR HER AT 1PM TODAY PT STATES, "I DON'T FEEL LIKE I'M READY TO GO HOME. 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 EVAL BUT DUE TO POLICY RE: ELEVATED INR; P.T. DID NOT SEE ORDER RECEIVED FROM DR MATHTEW TO PT TO RE-INITIATE P.T. EVAL; PT'S GOAL INR 4-5, PT AND PHYSICIAN AWARE THAT PT IS HIGH RISK FOR BLEED IF PT FALLS PT UNDERSTANDS THAT SHE MUST BE ABLE TO AMBULATE TO GO HOME CM SPOKE WITH Ester ANTONIO WHO WILL EVAL PT THIS AFTERNOON
[2019-08-11] MEDS: WARFARIN SOD 1 MG TAB PO SCH (16:41)
--- NOTE | 2019-08-11 16:52 | Progress Note ---
DATE: 08/11/2019 SUBJECTIVE: Mellisa Sullivan is a 53-year-old white female with gangrene of left lower extremity toes, 3 of them now today, it looks like she has beginning of gangrene of 1 more toe of the left lower extremity. The rounds were made as usual with the case briefer, Laverne and the nurse. [place] [facility] [place] Petar Abdullahi, who said he has accepted her as a patient that he will monitor her INR, will be kept between 4 and 5, less than that she might clot that he would consult me on the phone, if something else is required. I was told by her yesterday, the patient that Rosana, one of the nurses here had called Dr. Abdullahi and Rosana said to her that she could not get in touch with Dr. Abdullahi, we were told that yesterday while we were making rounds the team. OBJECTIVE: On physical exam, today again she has 4+ pitting edema and the digits as described by me. The patient had expressed yesterday that she will sign out against medical advice today. However, she claims today that "she is not stable enough to go home." She claims that her potassium has been low, however, the potassium after giving her the potassium supplement had gone up to 4.2 yesterday. I had kept in touch with the patient's nurse. INR yesterday was 4.98 on 1 mg of Coumadin. She also complained that she is not getting any physiotherapy, however, physiotherapy was consulted. However, the physical therapists were afraid with a high INR that if she falls, she is going to have hematoma. We will re-consult the physiotherapy again. Clinically, the patient has, 1. Massive lung metastases. 2. Massive liver metastases. 3. Possible GI or malignancy as the cause of metastases. This, however, cannot be confirmed, as I repeatedly said no one in the right mine is going to do a biopsy of the liver or the lung or the uterus with a high INR. If the INR is brought down to normal, she will clot off the left leg as we know, which has happened at least 4 times so far. She still insists that they got to be something which could be done about the biopsy. I keep repeating again and again that nothing can be done to have a biopsy. I also kept repeating that even with the biopsy is done, it is a terminal disease far advanced malignancy with the liver going down to the left upper abdominal quadrant approximately 4 to 6 inches down. I will not be able to get anywhere with her albumin. This is because of massive liver metastases. I will also not be able to get her hemoglobin up. She will require blood transfusions, as this is anemia of chronic disease and also anemia of blood loss. She claimed that a nursing food service kitchen supervisor made rounds and she did instruct her that she is not stable enough to go home. She still refuses no code. I will continue to give her best supportive care during this hospitalization. MD KENDRA Lara/SAMIRA /[id number]
[2019-08-11] MEDS: FLUCONAZOLE 400MG/200ML BAG 200 ML IV SCH (17:10)
--- NOTE | 2019-08-11 19:05 | NUR ---
Received report from day nurse. patient is resting comfortably in bed. bed is in lowest position and call rene is within reach. will continue to monitor patient.
[2019-08-12] VITALS (8 sets, daily range): BP systolic 130–146; BP diastolic 77–88
[2019-08-12] MEDS: HYDROCODONE/APAP 7.5MG-325MG 1 EA TAB PO PRN ×5 (01:34→22:54)
[2019-08-12] MEDS: MORPHINE SULFATE INJ 4 MG/ML INJ 1ML IV PRN ×6 (02:39→20:21)
[2019-08-12 05:39] LABS: BASOPHILS # (AUTO) 0.1 (0.0-0.1); BASOPHILS % 0.3 % (0.0-1.0); EOSINOPHILS # (AUTO) 0.4 (0.0-0.4); EOSINOPHILS % 2.3 % (0.0-6.0); HEMATOCRIT 27.2 % (34.2-44.1); HEMOGLOBIN 8.4 g/dL (12.0-16.0); LYMPHOCYTES # (AUTO) 1.4 (1.0-3.2); LYMPHOCYTES % 7.6 % (18.0-39.1); MEAN CORPUSCULAR HGB CONC 30.9 g/dL (31-35); MEAN CORPUSCULAR VOLUME 90.7 fL (81-99); MONOCYTES # (AUTO) 0.9 (0.2-0.8); NEUTROPHILS # (AUTO) 15.8 (2.1-6.9); NEUTROPHILS % 83.7 % (38.7-80.0); PLATELET COUNT 696 x10e3/uL (140-360); RED CELL DISTRIBUTION WIDTH 17.6 % (11.7-14.4)
[2019-08-12] MEDS: ONDANSETRON HCL 4 MG ORAL DISINTEGRATING TAB PO PRN ×2 (05:42→20:21)
[2019-08-12] MEDS: NYSTATIN SUSPENSION 5 ML UDC PO SCH ×3 (05:42→17:07)
[2019-08-12 05:49] LABS: INR 3.88; PROTHROMBIN TIME 38.9 seconds (11.9-14.5)
[2019-08-12 05:54] LABS: ALANINE AMINOTRANSFERASE 21 IU/L (0-55); ALBUMIN 1.2 g/dL (3.5-5.0); ALBUMIN/GLOBULIN RATIO 0.3 (0.8-2.0); ALKALINE PHOSPHATASE 658 IU/L (40-150); ANION GAP 12.1 mmol/L (8-16); BLOOD UREA NITROGEN < 5 mg/dL (7-26); CALCIUM 7.7 mg/dL (8.4-10.2); CARBON DIOXIDE 28 mmol/L (22-29); CHLORIDE 96 mmol/L (98-107); CREATININE, SERUM 0.47 mg/dL (0.57-1.11); EST GLOMERULAR FILTRATION RATE > 60 ML/MIN (60-); GLUCOSE 107 mg/dL (74-118); POTASSIUM 3.1 mmol/L (3.5-5.1); SODIUM 133 mmol/L (136-145)
[2019-08-12 05:59] LABS: BUN/CREATININE RATIO 11 (6-25)
[2019-08-12] MEDS: SODIUM CHLORIDE 0.9% 1000ML 1,000 ML IV SCH (06:21)
--- NOTE | 2019-08-12 06:48 | NUR ---
REPORT GIVEN TO DAY NURSE. PATIENT IS RESTING COMFORTABLY IN BED. BED IS IN LOWEST POSITION AND CALL MALCOLM IS WITHIN REACH.
[2019-08-12] MEDS: CLOPIDOGREL BISULFATE 75 MG TAB PO SCH (08:08)
[2019-08-12] MEDS: ASPIRIN 81 MG CHEW TAB PO SCH (08:08)
--- NOTE | 2019-08-12 09:45 | NUR ---
Dr Beyer had rounds, patient stated " I feel little better and trying to go home by this weekend'. New consultation for Dr Abdullahi for outpatient management
[2019-08-12] MEDS ORDERED: POTASSIUM CHLORIDE 20MEQ/100ML 200 ML IV ONE (10:20)
--- NOTE | 2019-08-12 11:55 | NUR ---
ASSESSMENT: Spiritual concern Pt is excited and hopeful. Pt expressed optimism following visit from physician. Pt also hopeful at possibility of being discharged home soon. Intervention: Provided supportive listening and validated feelings. Outcome: Pt requests follow up visit. REA VERMA Direct Marketing Executive Spiritual Care Department O: [phone] Pager: [phone] ([phone] number calling from)
--- NOTE | 2019-08-12 12:08 | Consultation ---
DATE OF CONSULTATION: 08/12/2019 REASON FOR CONSULTATION: Medical management. HISTORY OF PRESENT ILLNESS: This is a 53-year-old white woman, who has a known history of widely metastatic cancer, likely lung in origin that involves her liver heavily. The patient had undergone a brain MRI in June 2019, that did not reveal any evidence of metastatic disease. The patient did undergo CT of the chest with contrast in June 2019, that revealed numerous bilateral pulmonary nodules in the right. The CT of the chest also reveal hepatomegaly with masses throughout the right and left liver, that demonstrated areas of early arterial enhancement. 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 She has in hypercoagulable state. The patient is on warfarin therapy and if her INR is not kept around 4, then she experiences recurrent arterial thrombi. The patient has undergone multiple angiographies with thrombus removal from the left popliteal artery. The patient has been told by the oncologist namely Dr. Lior Beyer, that she has widely metastatic cancer with a very poor prognosis. The patient states she is not ready for palliative or hospice care. She also states that she is a full resuscitation status. Her main issue is pain control. The patient states she is very eager to be discharged home. REVIEW OF SYSTEMS: GENERAL: The patient has lost 60 pounds since September 2018, however, she states that she did lose 50 pounds intentionally by practicing caloric restriction. Denies any fever or chills. Does complain generalized weakness. HEENT: No headaches. No visual changes. CARDIOVASCULAR/RESPIRATORY: She denies any chest pain. No shortness of breath or cough. GI: Denies any abdominal pain. Denies any nausea or vomiting. Denies any melena or hematochezia. : Denies any hematuria. The patient has recurrent bouts of vaginal bleeding. NEUROMUSCULAR: Complains of extensive swelling of lower extremities. She also complains of necrotic wounds on the toes of her left foot. PAST MEDICAL HISTORY: 1. Diffusely metastatic cancer with liver involvement (likely lung in origin). 2. Tobacco abuse. 3. Hypertensive heart disease. 4. 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 5. Anemia, secondary to chronic disease. 6. History of upper gastrointestinal bleeding. PAST SURGICAL HISTORY: Multiple angiographies with left popliteal thrombus removal. SOCIAL HISTORY: This woman is from her and lives in her house with her adult son. She also has adult daughter who is involved in her health care needs. She is a tobacco smoker. Drinks alcohol socially. 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 ALLERGIES: PENICILLIN. FAMILY HISTORY: Father of myocardial infarction at age 69. Mother of lung cancer at age 65. Two brothers have coronary artery disease. All three of her brothers have hypertension. She had a brother who of complications of alcoholism. CURRENT MEDICATIONS: 1. Morphine sulfate 4 mg intravenous every 3 hours p.r.n. pain. 2. [place] 7.5/325 one every 4 hours p.r.n. pain. 3. Clopidogrel 75 mg daily. 4. Aspirin 81 mg daily. 5. Sodium chloride 50 mL an hour. 6. Nystatin5 cc p.o. q.i.d. 7. Ondansetron 4 mg p.o. q.4 hours p.r.n. nausea. 8. Fluconazole 200 mg intravenous daily. 9. Warfarin 1 mg daily. 10. Lactulose 20 g by mouth daily as needed for constipation. 11. Acetaminophen 650 mg every 4 hours p.r.n. fever or mild pain. 12. Spironolactone 50 mg daily. 13. Furosemide 20 mg daily. PHYSICAL EXAMINATION: GENERAL: She is awake, alert, and fully oriented. Does not appear to be in any obvious distress. VITAL SIGNS: Height 5 feet 7 inches, weight 145 pounds, BMI 22. Blood pressure is 130/80, pulse is 86, respiratory rate 18, temperature 96.7, and oxygen saturation 98% on room air. INTEGUMENT: Skin is warm and dry. She has pallor. The patient's skin has a dusky hue. No jaundice or diaphoresis. HEENT: Moist mucous membranes. NECK: Supple. CARDIOVASCULAR: Distant heart sounds. Tachycardic rate, regular rhythm. The patient has S4 gallop. LUNGS: No rales. No rhonchi. No wheezes. ABDOMEN: Soft. The patient does have palpable organomegaly, namely liver. EXTREMITIES: The patient has 4+ edema from the thighs down to her lower legs. She has necrosis of the left 3rd, 4th, and 5th toes. NEUROLOGIC: No gross focal deficits appreciated. DIAGNOSES: 1. Diffusely metastatic cancer, likely lung in origin with liver involvement. 2. Recurrent arterial thrombi, likely secondary to hypercoagulability state from underlying malignancy. 3. Tobacco abuse. 4. Hypertensive heart disease. 5. Anemia, secondary to chronic disease. 6. Hypokalemia. PLAN: 1. Replete potassium. 2. I spoke at length with the patient's oncologist/rn palliative care, namely Dr. Lior Beyer, who provided me guidance in regard to managing patient's hypercoagulable state with warfarin therapy. 3. Pain control. 4. Discontinue intravenous fluids. 5. Discontinue telemetry. 6. I spoke with the patient in regard to her current status and she states adamantly that she is a full resuscitation code status. 7. We also discussed end of life issues, but once again she is not prepared for palliative/hospice care. 8. We will continue warfarin therapy. 9. Continue aspirin and clopidogrel since she has peripheral artery disease. I spent 1 hour and 10 minutes in the care of this patient. MD ZAY Godoy/SAMIRA /[id number] MTDJesus
--- NOTE | 2019-08-12 16:23 | Progress Note ---
DATE: 08/12/2019 SUBJECTIVE: Mellisa Sullivan is a 53-year-old white female, admitted with arterial thrombosis of the left lower extremity, high INR, and bleeding through the vagina. For detailed history and physical, please review my original dictation of admission. Today, the patient's hemoglobin is 8.4, white count of 18,800, and platelets 696. This is a leukemoid reaction because of underlying malignancy as all the cultures have been negative. The thrombocythemia is secondary thrombocythemia because of the underlying malignancy. The patient's potassium today is 3.1 and the patient will be supplemented potassium. Her kidney function is still good with creatinine being 0.47. INR is 3.88 on 1 mg of Coumadin. I will continue 1 mg of Coumadin so long the INR is above 3.5. The alkaline phosphatase has gone up to 658 of academic interest would be to redo the CEA not for me, but for her to show that there is progression of the disease. She had been seen by physiotherapy upon insistence as they had denied physiotherapy before. They were afraid of bleeding because of the high INR, which has to be kept high. The patient's edema is 4+ pitting in the left lower extremity. Findings are the same as yesterday. Three gangrenous digits and the 4th one is showing signs of gangrene. I have added the potassium supplement. I have also added Lasix and Aldactone, as one day if she goes home, she will have to be maintained on oral diuretics. Every effort is being made to convince her that she has far advanced malignancy that no one can biopsy her because she has to be maintained on the Coumadin. She cannot be taken off the Coumadin. All cultures so far have been negative. I will communicate with Dr. Gardner to get her off Diflucan also. MD KENDRA Lara/SAMIRA /[id number]
[2019-08-12] MEDS: WARFARIN SOD 1 MG TAB PO SCH (17:07)
--- NOTE | 2019-08-12 19:08 | NUR ---
received report from day nurse,patient is resting comfortably on a chair at the side of the bed. call rene is within reach. will continue to monitor patient.
[2019-08-13] VITALS (8 sets, daily range): BP systolic 120–151; BP diastolic 71–91
[2019-08-13] MEDS: NYSTATIN SUSPENSION 5 ML UDC PO SCH ×4 (00:36→17:38)
[2019-08-13] MEDS: MORPHINE SULFATE INJ 4 MG/ML INJ 1ML IV PRN ×7 (00:37→23:50)
[2019-08-13 05:36] LABS: BASOPHILS # (AUTO) 0.1 (0.0-0.1); BASOPHILS % 0.3 % (0.0-1.0); EOSINOPHILS # (AUTO) 0.4 (0.0-0.4); EOSINOPHILS % 2.5 % (0.0-6.0); HEMATOCRIT 24.2 % (34.2-44.1); HEMOGLOBIN 7.6 g/dL (12.0-16.0); LYMPHOCYTES # (AUTO) 1.5 (1.0-3.2); MEAN CORPUSCULAR HEMOGLOBIN 28.3 pg (28-32); MEAN CORPUSCULAR HGB CONC 31.4 g/dL (31-35); MONOCYTES # (AUTO) 0.9 (0.2-0.8); MONOCYTES % 5.4 % (4.4-11.3); NEUTROPHILS # (AUTO) 13.3 (2.1-6.9); NEUTROPHILS % 82.1 % (38.7-80.0); PLATELET COUNT 618 x10e3/uL (140-360); RED BLOOD COUNT 2.69 x10e6/uL (3.6-5.1); RED CELL DISTRIBUTION WIDTH 17.5 % (11.7-14.4)
[2019-08-13 05:55] LABS: INR 3.81; PROTHROMBIN TIME 38.3 seconds (11.9-14.5)
[2019-08-13 06:04] LABS: ALANINE AMINOTRANSFERASE 17 IU/L (0-55); ALBUMIN 1.1 g/dL (3.5-5.0); ALBUMIN/GLOBULIN RATIO 0.3 (0.8-2.0); ALKALINE PHOSPHATASE 585 IU/L (40-150); ANION GAP 13.3 mmol/L (8-16); BLOOD UREA NITROGEN 5 mg/dL (7-26); BUN/CREATININE RATIO 10 (6-25); CALCIUM 7.7 mg/dL (8.4-10.2); CARBON DIOXIDE 27 mmol/L (22-29); CHLORIDE 100 mmol/L (98-107); CREATININE, SERUM 0.51 mg/dL (0.57-1.11); EST GLOMERULAR FILTRATION RATE > 60 ML/MIN (60-); GLUCOSE 96 mg/dL (74-118); POTASSIUM 3.3 mmol/L (3.5-5.1); SODIUM 137 mmol/L (136-145)
[2019-08-13] MEDS: HYDROCODONE/APAP 7.5MG-325MG 1 EA TAB PO PRN ×4 (06:21→19:24)
--- NOTE | 2019-08-13 07:19 | NUR ---
report given to day nurse. patient is resting comfortably on chair by the bed. call light is within reach.
[2019-08-13] MEDS: ASPIRIN 81 MG CHEW TAB PO SCH (08:13)
[2019-08-13] MEDS: FUROSEMIDE 20 MG TAB PO SCH (08:13)
[2019-08-13] MEDS: SPIRONOLACTONE 25 MG TAB PO SCH (08:13)
[2019-08-13] MEDS: CLOPIDOGREL BISULFATE 75 MG TAB PO SCH (08:13)
[2019-08-13] MEDS: LACTULOSE SYRUP 20 GM/30 ML UDC PO PRN (09:54)
--- NOTE | 2019-08-13 10:00 | NUR ---
ROUNDED WITH DR MATTHEW AND MILENA TO THIS PATIENTS ROOM, DR MATTHEW HANDED CARE OVER TO DR ABBOTT AND WISHED HER WELL. DR ABBOTT SPOKE WITH HER ABOUT HER WISHES, HE ASKED ME TO ASSIST HER WITH HER MEDICAL POWER OF [employer] AND HER REQUEST ABOUT INTUBATION AND LENGTH OF TIME TO DETERMINE TO TAKE OFF IF INTUBATED OVER WEEKEND. SHE STATES NO MORE THAN 7 DAYS. HE WROTE PRESCRIPTIONS AND HANDED TO NURSE OHARA AND SHE WILL GIVE TO [facility] FOR SAFE KEEPING IF THE PT DISCHARGES OVER WEEKEND IF NOT THE PLAN IS FOR HOME ON FRIDAY AND FOLLOW UP IN OFFICE ON FRIDAY. ALL LEFT ROOM. RETURN TO ROOM WITH WITNESS TO COMPLETE MEDICAL POWER OF [employer], SIGNED FILED A COPY IN CHART UNDER ADVANCED DIRECTIVE AND GAVE PT ORIGINAL AND 4 MORE COPIES FOR FAMILY. WHEN I WENT IN TO ROOM SHE DECIDED HER SHOULD BE LISTED FIRST FOR DECISIONS AND HER DAUGHTER CÉSAR SECONDARY. SHE STATES SHE IS GOING TO SPEAK WITH HER FAMILY AND KNOW WHAT SHE DISCUSSED WITH THE DOCTOR AND MYSELF TODAY.
[2019-08-13] MEDS ORDERED: POTASSIUM CHLORIDE 20MEQ/15ML UDC PO ONE ×3 (10:15→13:30)
[2019-08-13] MEDS: ONDANSETRON HCL 4 MG ORAL DISINTEGRATING TAB PO PRN ×2 (11:01→23:50)
--- NOTE | 2019-08-13 11:25 | NUR ---
Follow up visit. Pt states she doesn't feel well enough for visit at this time. Will attempt visit later today as able. REA [facility] [employer] Loss Prevention Manager Spiritual Care Department O: [phone]
[2019-08-13] MEDS ORDERED: POTASSIUM CHLORIDE 20MEQ/15ML UDC PO NR (12:45)
--- NOTE | 2019-08-13 13:34 | NUR ---
ASSESSMENT: Spiritual concern Pt inspired by physician with "different perspective" concerning illness. Pt anticipates d/c Friday. Pt appreciative of support during hospitalization. Intervention: Provided empathic, non-judgemental pastoral presence. Outcome: Will continue to follow as able. REA Ruizlain Spiritual Care Department O: [phone] Pager: [phone] ([phone] calling from)
[2019-08-13] MEDS: WARFARIN SOD 1 MG TAB PO SCH (16:28)
--- NOTE | 2019-08-13 17:23 | NUR ---
Nutrition Screen Note RD Recommendation for Physician: Continue diet as ordered Plan of Care: RD following, monitoring for tolerance and adequacy Nutrition reason for involvement: follow up Primary Diagnose(s):abdominal pain,anemia, coumadin toxicity PMH: Liver, lung metastasis Ht:67 in Wt:145lb BMI:22.7 kg/m2 IBW:135lb RD Assessment: (08/13/19) Follow up. Pt reports eating >50% of meals, but mentioned she was experiencing nausea. Pt did not have any questions at time of visit. Will continue to monitor. (08/06/2019) Follow up. Pt reports a good appetite and has been eating >50% of meals. No N/V reported. Will continue to monitor. (07/31/2019) Chart reviewed. Labs and meds reviewed. Initial encounter with patient. Pt is on Warfarin and was able to give examples of foods that contain vitamin K. Pt with voluntary wt loss due to a wellness program. Pt denies any difficulty chewing or swallowing. Pt has chronic constipation. Pt denies any nausea or vomiting. Pt has no known food allergies Current Diet: Regular diet Malnutrition Evaluation (07/31/2019) The patient does not meet criteria for a specified degree of malnutrition at this time. Will re-evaluate at follow-up as appropriate. Diet Education Needs Assessment: Diet education not indicated. Nutrition Care Level: Low Signed: Linette Walls, RD, LD
--- NOTE | 2019-08-13 17:38 | Progress Note ---
DATE: 08/13/2019 SUBJECTIVE: Dr. Abdullahi has been gracious enough to transfer her to his service. I have discussed with him the low potassium, which he is going to address and the low hemoglobin, which he will address. The INR today is 3.81. The patient will be kept on 1 mg of Coumadin to keep the INR close to 4 to even 5 to avoid arterial clot of the left lower extremity. Prognosis remains extremely poor. I have made rounds with Dr. Abdullahi, the transplant case manager as well as the nurse of Mellisa Sullivan. I am still very gracious by Dr. Abdullahi to have taken her care. I stepped down from the care. The patient will be transferred to his service. MD KENDRA Lara/OZIELL /[id number] cc: Petar Abdullahi MD
--- NOTE | 2019-08-13 18:09 | NUR ---
TRIPLICATE PRESCRIPTIONS FROM DR. ABBOTT LEFT IN H.S. OFFICE (IN LOCK CABINET).
--- NOTE | 2019-08-13 19:10 | NUR ---
Received report from previous nurse. Call light within reach. Patient in recliner.
--- NOTE | 2019-08-13 19:26 | NUR ---
PATIENT IN STABLE CONDITION WITH NO S/S OF RESPIRATORY DISTRESS. PATIENT IN THE RECLINER WITH FEET ELEVATED. PATIENT RECENTLY RECEIVED PAIN MEDICATION. CALL LIGHT IS WITHIN REACH OF PATIENT- PATIENT INSTRUCTED TO CALL FOR ASSISTANCE NEEDED. REPORT GIVEN TO ONCOMING NURSE.
[2019-08-14] VITALS (9 sets, daily range): BP systolic 115–152; BP diastolic 65–76
[2019-08-14] MEDS: MORPHINE SULFATE INJ 4 MG/ML INJ 1ML IV PRN ×7 (03:00→23:46)
[2019-08-14] MEDS: ONDANSETRON HCL 4 MG ORAL DISINTEGRATING TAB PO PRN ×3 (04:01→23:46)
[2019-08-14] MEDS: HYDROCODONE/APAP 7.5MG-325MG 1 EA TAB PO PRN ×4 (04:01→21:36)
[2019-08-14] MEDS: NYSTATIN SUSPENSION 5 ML UDC PO SCH ×5 (05:47→23:49)
[2019-08-14 06:11] LABS: BASOPHILS # (AUTO) 0.1 (0.0-0.1); BASOPHILS % 0.3 % (0.0-1.0); EOSINOPHILS # (AUTO) 0.4 (0.0-0.4); EOSINOPHILS % 2.8 % (0.0-6.0); HEMATOCRIT 26.1 % (34.2-44.1); HEMOGLOBIN 8.1 g/dL (12.0-16.0); LYMPHOCYTES # (AUTO) 1.4 (1.0-3.2); LYMPHOCYTES % 8.7 % (18.0-39.1); MEAN CORPUSCULAR HEMOGLOBIN 28.1 pg (28-32); MEAN CORPUSCULAR VOLUME 90.6 fL (81-99); MONOCYTES # (AUTO) 0.9 (0.2-0.8); MONOCYTES % 5.9 % (4.4-11.3); NEUTROPHILS # (AUTO) 12.7 (2.1-6.9); NEUTROPHILS % 81.3 % (38.7-80.0); PLATELET COUNT 674 x10e3/uL (140-360); RED BLOOD COUNT 2.88 x10e6/uL (3.6-5.1); RED CELL DISTRIBUTION WIDTH 17.7 % (11.7-14.4)
[2019-08-14 06:22] LABS: INR 3.97; PROTHROMBIN TIME 39.6 seconds (11.9-14.5)
[2019-08-14 06:31] LABS: ALANINE AMINOTRANSFERASE 18 IU/L (0-55); ALBUMIN 1.3 g/dL (3.5-5.0); ALBUMIN/GLOBULIN RATIO 0.3 (0.8-2.0); ALKALINE PHOSPHATASE 660 IU/L (40-150); ANION GAP 13.9 mmol/L (8-16); BLOOD UREA NITROGEN 5 mg/dL (7-26); BUN/CREATININE RATIO 9 (6-25); CALCIUM 8.3 mg/dL (8.4-10.2); CARBON DIOXIDE 29 mmol/L (22-29); CHLORIDE 98 mmol/L (98-107); CREATININE, SERUM 0.54 mg/dL (0.57-1.11); EST GLOMERULAR FILTRATION RATE > 60 ML/MIN (60-); GLUCOSE 86 mg/dL (74-118); POTASSIUM 3.9 mmol/L (3.5-5.1); SODIUM 137 mmol/L (136-145)
--- NOTE | 2019-08-14 07:07 | NUR ---
GAVE REPORT TO ONCOMING NURSE. CALL LIGHT WITHIN REACH. PATIENT IN RECLINER
[2019-08-14] MEDS: ASPIRIN 81 MG CHEW TAB PO SCH (08:10)
[2019-08-14] MEDS: CLOPIDOGREL BISULFATE 75 MG TAB PO SCH (08:10)
[2019-08-14] MEDS: SPIRONOLACTONE 25 MG TAB PO SCH (08:10)
[2019-08-14] MEDS: FUROSEMIDE 20 MG TAB PO SCH (08:10)
[2019-08-14] MEDS: WARFARIN SOD 1 MG TAB PO SCH (16:19)
--- NOTE | 2019-08-14 18:40 | Progress Note ---
DATE: SUBJECTIVE: Ms. Sullivan is doing well. No new complaints. Her site where she had a femoral line is good. There is no redness, no swelling, and no drainage. REVIEW OF SYSTEMS: Otherwise unremarkable. PHYSICAL EXAMINATION: GENERAL: She is alert and oriented. Does not seem to be in acute distress. VITAL SIGNS: Stable, currently afebrile. HEENT: Negative. PULMONARY: Negative. IMPRESSION: Allergic reaction, localized femoral infection at the femoral line, which was removed, now stable. No need for further action or use of antibiotics. Stable from Infectious Disease. MD LALI Espitia/MODL /[id number]
--- NOTE | 2019-08-14 18:55 | NUR ---
RECEIVED REPORT FROM PREVIOUS NURSE. CALL LIGHT WITHIN REACH. PATIENT IN RECLINER.
[2019-08-15] VITALS (8 sets, daily range): BP systolic 123–140; BP diastolic 72–81
[2019-08-15] MEDS: HYDROCODONE/APAP 7.5MG-325MG 1 EA TAB PO PRN ×4 (02:15→19:22)
[2019-08-15] MEDS: MORPHINE SULFATE INJ 4 MG/ML INJ 1ML IV PRN ×6 (03:46→23:49)
[2019-08-15] MEDS: NYSTATIN SUSPENSION 5 ML UDC PO SCH ×2 (06:00→08:22)
[2019-08-15 06:36] LABS: BASOPHILS % 0.3 % (0.0-1.0); EOSINOPHILS # (AUTO) 0.4 (0.0-0.4); EOSINOPHILS % 2.8 % (0.0-6.0); HEMATOCRIT 24.9 % (34.2-44.1); HEMOGLOBIN 7.8 g/dL (12.0-16.0); LYMPHOCYTES # (AUTO) 1.3 (1.0-3.2); MEAN CORPUSCULAR HEMOGLOBIN 28.2 pg (28-32); MEAN CORPUSCULAR HGB CONC 31.3 g/dL (31-35); MEAN CORPUSCULAR VOLUME 89.9 fL (81-99); MONOCYTES # (AUTO) 0.9 (0.2-0.8); MONOCYTES % 6.3 % (4.4-11.3); NEUTROPHILS # (AUTO) 11.5 (2.1-6.9); NEUTROPHILS % 80.9 % (38.7-80.0); PLATELET COUNT 659 x10e3/uL (140-360); RED BLOOD COUNT 2.77 x10e6/uL (3.6-5.1); RED CELL DISTRIBUTION WIDTH 17.8 % (11.7-14.4)
[2019-08-15 07:02] LABS: INR 3.64
--- NOTE | 2019-08-15 07:29 | NUR ---
Gave report to oncoming nurse. Call light within reach. Patient in recliner
[2019-08-15 08:17] LABS: ALANINE AMINOTRANSFERASE 18 IU/L (0-55); ALBUMIN 1.3 g/dL (3.5-5.0); ALBUMIN/GLOBULIN RATIO 0.3 (0.8-2.0); ALKALINE PHOSPHATASE 688 IU/L (40-150); ANION GAP 15.8 mmol/L (8-16); BLOOD UREA NITROGEN 6 mg/dL (7-26); BUN/CREATININE RATIO 10 (6-25); CALCIUM 8.3 mg/dL (8.4-10.2); CARBON DIOXIDE 28 mmol/L (22-29); CHLORIDE 95 mmol/L (98-107); CREATININE, SERUM 0.59 mg/dL (0.57-1.11); EST GLOMERULAR FILTRATION RATE > 60 ML/MIN (60-); GLUCOSE 94 mg/dL (74-118); POTASSIUM 3.8 mmol/L (3.5-5.1); SODIUM 135 mmol/L (136-145)
[2019-08-15] MEDS: CLOPIDOGREL BISULFATE 75 MG TAB PO SCH (08:22)
[2019-08-15] MEDS: ASPIRIN 81 MG CHEW TAB PO SCH (08:22)
[2019-08-15] MEDS: SPIRONOLACTONE 25 MG TAB PO SCH (08:22)
[2019-08-15] MEDS: FUROSEMIDE 20 MG TAB PO SCH (08:22)
[2019-08-15] MEDS: LACTULOSE SYRUP 20 GM/30 ML UDC PO PRN (08:41)
[2019-08-15] MEDS: ONDANSETRON HCL 4 MG ORAL DISINTEGRATING TAB PO PRN ×2 (10:22→16:14)
[2019-08-15] MEDS: WARFARIN SOD 1 MG TAB PO SCH (16:14)
--- NOTE | 2019-08-15 18:57 | NUR ---
RECEIVED REPORT FROM PREVIOUS NURSE. CALL LIGHT WITHIN REACH. PATIENT IN BED.
[2019-08-16] VITALS: BP 123/68
[2019-08-16 04:00] VITALS: BP 127/70
[2019-08-16] MEDS: MORPHINE SULFATE INJ 4 MG/ML INJ 1ML IV PRN ×3 (04:00→08:50)
[2019-08-16] MEDS: HYDROCODONE/APAP 7.5MG-325MG 1 EA TAB PO PRN (06:23)
[2019-08-16 06:25] LABS: BASOPHILS # (AUTO) 0.1 (0.0-0.1); BASOPHILS % 0.4 % (0.0-1.0); EOSINOPHILS # (AUTO) 0.4 (0.0-0.4); EOSINOPHILS % 2.6 % (0.0-6.0); HEMATOCRIT 24.4 % (34.2-44.1); HEMOGLOBIN 7.7 g/dL (12.0-16.0); LYMPHOCYTES # (AUTO) 1.1 (1.0-3.2); LYMPHOCYTES % 7.9 % (18.0-39.1); MEAN CORPUSCULAR HEMOGLOBIN 27.9 pg (28-32); MEAN CORPUSCULAR HGB CONC 31.6 g/dL (31-35); MEAN CORPUSCULAR VOLUME 88.4 fL (81-99); MONOCYTES # (AUTO) 0.9 (0.2-0.8); MONOCYTES % 6.5 % (4.4-11.3); NEUTROPHILS # (AUTO) 11.7 (2.1-6.9); NEUTROPHILS % 81.8 % (38.7-80.0); PLATELET COUNT 691 x10e3/uL (140-360); RED BLOOD COUNT 2.76 x10e6/uL (3.6-5.1); RED CELL DISTRIBUTION WIDTH 17.9 % (11.7-14.4)
[2019-08-16 06:33] LABS: INR 2.92; PROTHROMBIN TIME 31.2 seconds (11.9-14.5)
[2019-08-16 06:46] LABS: ALANINE AMINOTRANSFERASE 16 IU/L (0-55); ALBUMIN 1.3 g/dL (3.5-5.0); ALBUMIN/GLOBULIN RATIO 0.3 (0.8-2.0); ALKALINE PHOSPHATASE 686 IU/L (40-150); ANION GAP 15.4 mmol/L (8-16); BLOOD UREA NITROGEN 5 mg/dL (7-26); BUN/CREATININE RATIO 9 (6-25); CALCIUM 8.3 mg/dL (8.4-10.2); CARBON DIOXIDE 28 mmol/L (22-29); CHLORIDE 93 mmol/L (98-107); CREATININE, SERUM 0.55 mg/dL (0.57-1.11); EST GLOMERULAR FILTRATION RATE > 60 ML/MIN (60-); GLUCOSE 93 mg/dL (74-118); POTASSIUM 3.4 mmol/L (3.5-5.1); SODIUM 133 mmol/L (136-145)
--- NOTE | 2019-08-16 07:16 | NUR ---
walking rounds completed, change of shift report received from tracey shift RN, pt in stable condition, all safety measures in place.
--- NOTE | 2019-08-16 07:16 | NUR ---
Gave report to oncoming nurse. Call light within reach. Patient in bed.
[2019-08-16 08:00] VITALS: BP 127/71
[2019-08-16 08:18] VITALS: BP 127/71
[2019-08-16] MEDS: ONDANSETRON HCL 4 MG ORAL DISINTEGRATING TAB PO PRN (08:47)
[2019-08-16] MEDS: FUROSEMIDE 20 MG TAB PO SCH (08:51)
[2019-08-16] MEDS: CLOPIDOGREL BISULFATE 75 MG TAB PO SCH (08:51)
[2019-08-16] MEDS: ASPIRIN 81 MG CHEW TAB PO SCH (08:51)
[2019-08-16] MEDS: SPIRONOLACTONE 25 MG TAB PO SCH (08:51)
[2019-08-16] MEDS ORDERED: MORPHINE SULFAT30 M2 PO (10:11)
[2019-08-16] MEDS ORDERED: NORCO 7.5-3251 EACH PO (10:13)
[2019-08-16] MEDS ORDERED: SPIRONOLACTONE25 MG PO (10:23)
[2019-08-16] MEDS ORDERED: FUROSEMIDE40 MG PO (10:24)
[2019-08-16] MEDS ORDERED: ZOFRAN8 MG PO (10:33)
[2019-08-16] MEDS ORDERED: LACTULOSE20 GM/30 M PO (10:40)
[2019-08-16] MEDS ORDERED: ZOFRAN4 MG PO (10:43)
--- NOTE | 2019-08-16 10:43 | Discharge Summary ---
ADMIT DIAGNOSES: 1. Anemia of chronic disease. 2. Acute anemia secondary to hemorrhagic blood loss. 3. Menorrhagia, likely secondary to endometrial carcinoma. 4. Multiple episodes of left lower extremity arterial thrombosis (left popliteal). 5. Left gangrenous toes. 6. Liver metastases. 7. Lung metastases. DISCHARGE DIAGNOSES: 1. Diffusely metastatic cancer likely lung in origin with liver involvement. 2. Recurrent arterial thrombi likely secondary to hypercoagulability state from underlying malignancy. 3. Anemia secondary to chronic disease. 4. Anemia secondary to acute hemorrhagic blood loss. 5. Tobacco abuse. 6. Hypertensive heart disease. 7. Severe protein calorie malnutrition. 8. Left gangrenous toes. HOSPITAL COURSE: This is a 53-year-old white woman who was initially admitted to [facility] with diagnosis of acute on chronic anemia as well as menorrhagia that initially was thought to be secondary to endometrial carcinoma. She was also admitted with diagnosis of liver and lung metastases. During this hospitalization, it was concluded the patient has diffusely metastatic cancer likely lung in origin with heavy liver involvement. This patient has recurrent arterial thrombi namely in the left popliteal artery that is secondary to her hypercoagulability state from her underlying malignancy. She also has underlying history of hypertensive heart disease with tobacco abuse. During this hospitalization the patient was initially admitted to her oncologist service namely Dr. Lior Beyer. During this hospital stay, the patient was transferred to library sales consultant service namely myself Dr. Petar Abdullahi. The patient was counseled on multiple occasions that her condition was terminal and that her prognosis is very poor. The patient, however, stated that she wanted to remain a full resuscitation status, but stated that if she was on a ventilator she would not want to be on life support more than 7 days. The patient designated her as medical [id number] and her adult daughter as alternate medical [id number]. The patient was also seen by Infectious Disease specialist, Dr. Gardner because of persistent fever. Her workup was negative. She was treated with intravenous vancomycin and IV Azactam during this hospital stay, but her blood and urine cultures all remain negative. Her chest x-ray did not reveal any acute abnormality. The patient had undergone a CT of the chest in June of 2019 that revealed numerous bilateral pulmonary nodules as well as hepatomegaly with masses throughout the right and left liver. The patient underwent MRI of the brain in June 2019, which did not reveal any evidence of metastatic disease. During this hospitalization, the patient's INR was kept between 3 and 4 to help prevent recurrent arterial thrombi. She was also continued on clopidogrel and aspirin because of her recurrent bouts of arterial thrombi and her peripheral artery disease. On day of discharge, hemoglobin was 7.7 g/dL with an MCV of 88 and RDW of 17.9. Also on day of discharge white blood cell count was 14,200 with 81% segmented neutrophils. On day of discharge, platelet count was 691,000. Also on day of discharge, the patient's prothrombin time was 31.2 and INR was 2.92. The patient was on warfarin 1 mg daily, but on day of discharge she was given warfarin 2 mg dose one time only. On day of discharge, the patient's sodium was 133 and potassium was 3.1. The patient's BUN and creatinine on discharge was 5 and 0.55 respectively. On day of discharge, AST and ALT were 44 and 16 respectively with an alkaline phosphatase level of 686. The patient's albumin level was 1.3 during this hospitalization. During this hospital stay, the patient had carcinoembryonic antigen level drawn. It was very elevated with level of 884. The patient's serum ammonia level remained normal during this hospitalization. CONDITION ON DISCHARGE: Stable with very poor prognosis. DISCHARGE MEDICATIONS: 1. Morphine sulfate extended release 30 mg one p.o. q.i.d. scheduled 120 prescribed. 2. Hydrocodone/acetaminophen 7.5/325 one pill every 4 hours p.r.n. breakthrough pain 60 prescribed. 3. Senna 17 mg one p.o. b.i.d. 4. Spironolactone 50 mg daily. 5. Furosemide 20 mg daily. 6. Clopidogrel 75 mg daily. 7. Aspirin 81 mg daily. 8. Ondansetron 4 mg p.o. b.i.d. p.r.n. nausea, 20 prescribed. 9. Warfarin 1 mg daily. 10. Lactulose 20 g once daily as needed for constipation. FOLLOWUP INSTRUCTIONS: The patient was instructed to follow up with her new primary care physician namely myself, Dr. Petar Abdullahi in 2 days on FridayAugust 18, 2019. On that visit, the patient's prothrombin time and INR level will be checked in my office. MD ZAY Godoy/SAMIRA /[id number] cc: Lior Beyer MD MTDD
[2019-08-16] MEDS ORDERED: POTASSIUM CHLORIDE 10MEQ EA PO ONE (10:45)
--- NOTE | 2019-08-16 10:45 | NUR ---
Dr Abdullahi ordered to give 2mg Coumadin prior to discharge.
[2019-08-16] MEDS: WARFARIN SOD 1 MG TAB PO SCH (11:11)
== END 2019-08-16 11:13 | disposition home or self-care (01) | DRG 843 ==
LOC: ER 08:08 → ERHOLD 09:05 → MED/SURG3 11:03
PROVIDERS: ADMIT Internal Medicine; ATTEND Internal Medicine
PROC: 30233N1 Transfusion of Nonautologous Red Blood Cells into Peripheral Vein, Percutaneous Approach (ICD-10-PCS; principal; 2019-07-28)
DX: C80.0 Disseminated malignant neoplasm, unspecified (principal); E43 Unspecified severe protein-calorie malnutrition; D68.69 Other thrombophilia; I82.432 Acute embolism and thrombosis of left popliteal vein; T80.212A Local infection due to central venous catheter, initial encounter; E87.1 Hypo-osmolality and hyponatremia; I96 Gangrene, not elsewhere classified; D62 Acute posthemorrhagic anemia; C78.7 Secondary malignant neoplasm of liver and intrahepatic bile duct; D63.8 Anemia in other chronic diseases classified elsewhere; Z91.19 Patient's noncompliance with other medical treatment and regimen; E87.6 Hypokalemia; D69.59 Other secondary thrombocytopenia; F17.200 Nicotine dependence, unspecified, uncomplicated; I11.9 Hypertensive heart disease without heart failure; Z68.20 Body mass index [BMI] 20.0-20.9, adult; C78.00 Secondary malignant neoplasm of unspecified lung
CPT/HCPCS: 36415; 51700; 71045; 80048; 80053; 80202; 81001; 82140; 82378; 82550; 82553; 83690; 83735; 83880; 84443; 84484; 85025; 85610; 85730; 86850; 86900; 86920; 87040; 87086; 93005; 96366; 97139; 99285; J0692; J1450; J1644; J1940; J2270; J2405; J3010; J3370; J3430; J3480; J7030; J7050; P9016; Q0162